=== PATIENT | male | born 1955 | race Caucasian/White ===

== ENCOUNTER 2018-01-31 15:12 | Emergency (ER) | payer MEDICARE, OTHER ==
[~2018-01-31] VITALS: Ht 172.7 cm; Wt 95.4 kg
[2018-01-31 15:25] VITALS: BP 151/82
[2018-01-31] MEDS ORDERED: insulin regular, human 10 units/0.1 ml syringe SQ ONE (16:45)
[2018-01-31] MEDS ORDERED: INSU200I SQ (16:47)
== END 2018-01-31 17:36 | disposition home or self-care (01) ==
LOC: ER 15:13
DX: E11.65 Type 2 diabetes mellitus with hyperglycemia (principal); Z79.4 Long term (current) use of insulin; Z88.5 Allergy status to narcotic agent
CPT/HCPCS: 82948; 96372; 99283; J1815

== ENCOUNTER 2018-03-20 13:54 | Inpatient (IN) | payer MEDICARE, OTHER ==
[~2018-03-20] VITALS: Ht 172.7 cm; Wt 97.7 kg
[~2018-03-20 13:54] MED LIST: INSU200I SQ
[2018-03-20] MEDS ORDERED: normal saline 1000ML IV soln IVB ONE (14:45)
[2018-03-20] MEDS ORDERED: nitroGLYCERIN 0.4mg/hour patch TD ONE (14:45)
[2018-03-20] MEDS ORDERED: aspirin 81mg tab.chew PO ONE (14:45)
[2018-03-20 15:05] LABS: BASOPHILS % (AUTO) 0.3 % (0-1); EOSINOPHILS # (AUTO) 0.3 X10'3 (0-0.9); EOSINOPHILS % (AUTO) 4.1 % (0-6); HEMATOCRIT 33.8 % (42.0-52.0); HEMOGLOBIN 11.4 g/dl (14.0-17.9); LYMPHOCYTES # (AUTO) 0.9 X10'3 (1.1-4.8); LYMPHOCYTES % (AUTO) 15.3 % (21-51); MEAN CORPUSCULAR HEMOGLOBIN 28.7 PG (27.0-31.0); MEAN CORPUSCULAR HGB CONC 33.9 % (33.0-36.5); MEAN CORPUSCULAR VOLUME 84.8 FL (78-98); MONOCYTES # (AUTO) 0.5 X10'3 (0-0.9); MONOCYTES % (AUTO) 7.4 % (2-12); NEUTROPHILS # (AUTO) 4.5 X10'3 (1.8-7.7); NEUTROPHILS % (AUTO) 72.9 % (42-75); PLATELET COUNT 273 X10'3 (140-440); RED BLOOD COUNT 3.98 X10'6 (4.70-6.10); RED CELL DISTRIBUTION WIDTH 14.3 % (11.5-14.5); WHITE BLOOD COUNT 6.2 X10'3 (4.5-11.0)
[2018-03-20 15:16] LABS: INR 0.9 INR; PARTIAL THROMBOPLASTIN TIME 29 SECONDS (22-32); PROTHROMBIN TIME 9.8 SECONDS (9.0-12.0)
[2018-03-20 15:29] LABS: ALANINE AMINOTRANSFERASE 24 U/L (12-78); ALBUMIN 2.8 G/DL (3.4-5.0); ALBUMIN/GLOBULIN RATIO 0.8 (1.1-1.5); ALKALINE PHOSPHATASE 66 IU/L (46-116); ANION GAP 9 (8-16); ASPARTATE AMINO TRANSFERASE 20 U/L (10-37); BILIRUBIN,TOTAL 0.2 MG/DL (0.1-1.0); BLOOD UREA NITROGEN 44 MG/DL (7-18); BUN/CREATININE RATIO 20.1 (5.4-32.0); CALCIUM 8.7 MG/DL (8.5-10.1); CHLORIDE 105 MMOL/L (99-107); CREATININE 2.19 MG/DL (0.60-1.10); GLUCOSE 204 MG/DL (70-104); MAGNESIUM 2.2 MG/DL (1.5-2.4); SODIUM 136 MMOL/L (135-145); TOTAL CARBON DIOXIDE 21.7 MMOL/L (24-32); TOTAL PROTEIN 6.4 G/DL (6.4-8.2); eGFR 31 ML/MIN
[2018-03-20] MEDS ORDERED: sodium polystyrene sulfonate 15gm/60ml oral suspension PO ONE (16:45)
[2018-03-20] MEDS ORDERED: insulin regular, human 10 units/0.1 ml syringe IV ONE (16:45)
[2018-03-20] MEDS ORDERED: calcium gluconate inj. 2 GM in normal saline 100ml IV soln 100 ML IV ONE (16:45)
[2018-03-20] MEDS ORDERED: dextrose 50%-water 50ml dispensing syringe IV ONE (16:45)
[2018-03-20] MEDS ORDERED: acetaminophen 325mg tablet PO PRN (18:55)
[2018-03-20] MEDS ORDERED: mag hydrox/Alum hydrox/simeth 30ml oral suspension PO PRN (18:55)
[2018-03-20] MEDS ORDERED: ondansetron/PF 4mg/2ml inj IV PRN (18:55)
[2018-03-20] MEDS ORDERED: OLANZapine 5mg rapidly disint. tablet PO ONE (18:55)
[2018-03-20] MEDS ORDERED: magnesium hydroxide 30ml (MOM) UD suspension PO PRN (18:55)
[2018-03-20] MEDS ORDERED: dextrose ORAL solution 15 GM/59 ML bottle PO PRN ×2 (19:00)
[2018-03-20] MEDS ORDERED: dextrose 50%-water 50ml dispensing syringe IV PRN ×2 (19:00)
[2018-03-20] MEDS ORDERED: glucagon, human recombinant 1mg kit SUBCUT PRN (19:00)
[2018-03-20] MEDS ORDERED: MESSAGE TO PHARMACY PO ONE (19:00)
[2018-03-20] MEDS: furosemide 20 MG/2 ML vial IV SCH (20:09)
[2018-03-20] MEDS: insulin glargine (Lantus) pen - multi-dose SQ SCH (21:00)
[2018-03-20 21:28] LABS: POTASSIUM 4.9 MMOL/L (3.5-5.1)
[2018-03-20 21:29] LABS: HEMOGLOBIN A1C 9.7 % (4.5-6.2)
[2018-03-20] MEDS ORDERED: OLAN5TAB5 PO (23:56)
[2018-03-20] MEDS ORDERED: SPIR25TA3 PO (23:56)
[2018-03-20] MEDS ORDERED: CARV-50 PO (23:56)
[2018-03-20] MEDS ORDERED: LEVO500T2 PO (23:56)
[2018-03-20] MEDS ORDERED: ASPI-1265 PO (23:56)
[2018-03-21] VITALS: BP 155/84
[2018-03-21 03:29] LABS: BASOPHILS % (AUTO) 0.6 % (0-1); EOSINOPHILS # (AUTO) 0.2 X10'3 (0-0.9); HEMATOCRIT 32.9 % (42.0-52.0); HEMOGLOBIN 11.1 g/dl (14.0-17.9); MEAN CORPUSCULAR HEMOGLOBIN 28.7 PG (27.0-31.0); MEAN CORPUSCULAR HGB CONC 33.9 % (33.0-36.5); MEAN CORPUSCULAR VOLUME 84.6 FL (78-98); MONOCYTES # (AUTO) 0.5 X10'3 (0-0.9); MONOCYTES % (AUTO) 7.6 % (2-12); NEUTROPHILS # (AUTO) 4.6 X10'3 (1.8-7.7); NEUTROPHILS % (AUTO) 72.8 % (42-75); PLATELET COUNT 268 X10'3 (140-440); RED BLOOD COUNT 3.89 X10'6 (4.70-6.10); RED CELL DISTRIBUTION WIDTH 13.9 % (11.5-14.5); WHITE BLOOD COUNT 6.3 X10'3 (4.5-11.0)
[2018-03-21 03:48] LABS: ALANINE AMINOTRANSFERASE 21 U/L (12-78); ALBUMIN 2.6 G/DL (3.4-5.0); ALBUMIN/GLOBULIN RATIO 0.8 (1.1-1.5); ALKALINE PHOSPHATASE 64 IU/L (46-116); ANION GAP 9 (8-16); ASPARTATE AMINO TRANSFERASE 18 U/L (10-37); BILIRUBIN,TOTAL 0.4 MG/DL (0.1-1.0); BLOOD UREA NITROGEN 45 MG/DL (7-18); BUN/CREATININE RATIO 21.7 (5.4-32.0); CALCIUM 9.1 MG/DL (8.5-10.1); CHLORIDE 107 MMOL/L (99-107); CREATININE 2.07 MG/DL (0.60-1.10); GLUCOSE 114 MG/DL (70-104); MAGNESIUM 2.2 MG/DL (1.5-2.4); POTASSIUM 5.1 MMOL/L (3.5-5.1); SODIUM 139 MMOL/L (135-145); TOTAL CARBON DIOXIDE 22.7 MMOL/L (24-32); eGFR 33 ML/MIN
[2018-03-21 07:00] VITALS: BP 112/58
[2018-03-21] MEDS: furosemide 20 MG/2 ML vial IV SCH ×2 (10:00→21:58)
[2018-03-21] MEDS: heparin, porcine 5000 units/ml vial SQ SCH ×2 (10:01→21:57)
[2018-03-21] MEDS ORDERED: ALPRAZolam 0.25mg tablet PO PRN (10:20)
[2018-03-21] MEDS ORDERED: OLANZapine 5mg rapidly disint. tablet PO PRN (10:50)
[2018-03-21] MEDS ORDERED: regadenoson 0.4mg/5ml syringe IV ONE (11:10)
[2018-03-21] MEDS ORDERED: nitroGLYCERIN 0.4mg SUBLingual tab SL PRN (11:10)
[2018-03-21] MEDS ORDERED: CAFFEINE CITRATE 60 MG/3 ML injection vial IV PRN (11:10)
[2018-03-21] MEDS: aspirin 81mg tab.chew PO SCH (12:00)
[2018-03-21] MEDS: spironolactone 25 MG tablet PO SCH (12:00)
[2018-03-21] MEDS: carVEDilol 12.5mg tablet PO SCH ×2 (12:00→21:58)
[2018-03-21 12:30] VITALS: BP 133/74
[2018-03-21] MEDS: ALPRAZolam 0.25mg tablet PO PRN (14:04)
[2018-03-21] MEDS: levoFLOXACIN 500mg tablet PO SCH (14:04)
[2018-03-21 20:00] VITALS: BP 129/71
[2018-03-21] MEDS: insulin glargine (Lantus) pen - multi-dose SQ SCH (21:00)
[2018-03-22] VITALS (13 sets, daily range): BP systolic 88–172; BP diastolic 52–86
[2018-03-22 07:24] LABS: CHOLESTEROL 186 MG/DL (0-200); HDL CHOLESTEROL 31 MG/DL (35-60); LDL CHOLESTEROL 118 MG/DL (50-100); TRIGLYCERIDES 161 MG/DL (20-135)
[2018-03-22] MEDS ORDERED: regadenoson 0.4mg/5ml syringe IV ONE (09:20)
[2018-03-22] MEDS: furosemide 20 MG/2 ML vial IV SCH (11:41)
[2018-03-22] MEDS: carVEDilol 12.5mg tablet PO SCH ×2 (11:44→20:56)
[2018-03-22] MEDS: spironolactone 25 MG tablet PO SCH (11:44)
[2018-03-22] MEDS: levoFLOXACIN 500mg tablet PO SCH (11:45)
[2018-03-22] MEDS: aspirin 81mg tab.chew PO SCH (11:45)
[2018-03-22] MEDS: heparin, porcine 5000 units/ml vial SQ SCH ×2 (11:48→20:56)
[2018-03-22 16:26] LABS: ALBUMIN 2.9 G/DL (3.4-5.0); ANION GAP 7 (8-16); BLOOD UREA NITROGEN 44 MG/DL (7-18); BUN/CREATININE RATIO 20.6 (5.4-32.0); CALCIUM 9.2 MG/DL (8.5-10.1); CHLORIDE 101 MMOL/L (99-107); CREATININE 2.14 MG/DL (0.60-1.10); GLUCOSE 158 MG/DL (70-104); POTASSIUM 5.2 MMOL/L (3.5-5.1); SODIUM 136 MMOL/L (135-145); TOTAL CARBON DIOXIDE 28.2 MMOL/L (24-32); eGFR 31 ML/MIN
[2018-03-22] MEDS: furosemide 40mg/4ml inj IV SCH (20:55)
[2018-03-22] MEDS: lactobacillus rhamnosus 10,000 MMU CELLS/CAPSULE PO SCH (20:56)
[2018-03-22] MEDS: insulin glargine (Lantus) pen - multi-dose SQ SCH (21:00)
[2018-03-23] VITALS: BP 124/71
[2018-03-23 06:04] LABS: BASOPHILS % (AUTO) 0.5 % (0-1); EOSINOPHILS # (AUTO) 0.2 X10'3 (0-0.9); EOSINOPHILS % (AUTO) 4.6 % (0-6); HEMATOCRIT 33.2 % (42.0-52.0); HEMOGLOBIN 11.6 g/dl (14.0-17.9); LYMPHOCYTES # (AUTO) 1.2 X10'3 (1.1-4.8); LYMPHOCYTES % (AUTO) 21.1 % (21-51); MEAN CORPUSCULAR HEMOGLOBIN 29.2 PG (27.0-31.0); MEAN CORPUSCULAR HGB CONC 34.9 % (33.0-36.5); MEAN CORPUSCULAR VOLUME 83.4 FL (78-98); MEAN PLATELET VOLUME 7.7 FL (7.4-10.4); MONOCYTES # (AUTO) 0.5 X10'3 (0-0.9); MONOCYTES % (AUTO) 9.5 % (2-12); NEUTROPHILS # (AUTO) 3.5 X10'3 (1.8-7.7); NEUTROPHILS % (AUTO) 64.3 % (42-75); PLATELET COUNT 262 X10'3 (140-440); RED BLOOD COUNT 3.98 X10'6 (4.70-6.10); WHITE BLOOD COUNT 5.5 X10'3 (4.5-11.0)
[2018-03-23 06:37] LABS: ALBUMIN 2.7 G/DL (3.4-5.0); ANION GAP 10 (8-16); BLOOD UREA NITROGEN 52 MG/DL (7-18); BUN/CREATININE RATIO 21.1 (5.4-32.0); CALCIUM 8.9 MG/DL (8.5-10.1); CHLORIDE 101 MMOL/L (99-107); CREATININE 2.47 MG/DL (0.60-1.10); GLUCOSE 173 MG/DL (70-104); POTASSIUM 4.6 MMOL/L (3.5-5.1); SODIUM 136 MMOL/L (135-145); TOTAL CARBON DIOXIDE 25.3 MMOL/L (24-32); eGFR 27 ML/MIN
[2018-03-23 08:00] VITALS: BP 131/74
[2018-03-23] MEDS: aspirin 81mg tab.chew PO SCH (08:47)
[2018-03-23] MEDS: spironolactone 25 MG tablet PO SCH (08:47)
[2018-03-23] MEDS: furosemide 40mg/4ml inj IV SCH (08:47)
[2018-03-23] MEDS: carVEDilol 12.5mg tablet PO SCH ×2 (08:48→20:23)
[2018-03-23] MEDS: levoFLOXACIN 500mg tablet PO SCH (08:48)
[2018-03-23] MEDS: lactobacillus rhamnosus 10,000 MMU CELLS/CAPSULE PO SCH ×2 (08:48→20:22)
[2018-03-23] MEDS: atorvastatin 20mg tablet PO SCH (08:48)
[2018-03-23] MEDS: heparin, porcine 5000 units/ml vial SQ SCH ×2 (08:48→20:23)
[2018-03-23 11:34] VITALS: BP 141/83
[2018-03-23] MEDS: insulin Lispro (HumaLOG) vial - multi-dose SQ SCH (13:25)
[2018-03-23] MEDS: ALPRAZolam 0.25mg tablet PO PRN (17:27)
[2018-03-23 19:00] VITALS: BP 151/84
[2018-03-23] MEDS: furosemide 20 MG/2 ML vial IV SCH (20:23)
[2018-03-23] MEDS: insulin glargine (Lantus) pen - multi-dose SQ SCH (22:35)
[2018-03-23 23:00] VITALS: BP 111/67
[2018-03-24 07:00] VITALS: BP 133/75
[2018-03-24] MEDS: ALPRAZolam 0.25mg tablet PO PRN ×2 (07:04→16:26)
[2018-03-24] MEDS: insulin Lispro (HumaLOG) vial - multi-dose SQ SCH ×3 (08:39→19:12)
[2018-03-24] MEDS: levoFLOXACIN 500mg tablet PO SCH (08:43)
[2018-03-24] MEDS: aspirin 81mg tab.chew PO SCH (08:43)
[2018-03-24] MEDS: carVEDilol 12.5mg tablet PO SCH (08:43)
[2018-03-24] MEDS: spironolactone 25 MG tablet PO SCH (08:43)
[2018-03-24] MEDS: atorvastatin 20mg tablet PO SCH (08:43)
[2018-03-24] MEDS: heparin, porcine 5000 units/ml vial SQ SCH (08:44)
[2018-03-24] MEDS: furosemide 20 MG/2 ML vial IV SCH (08:44)
[2018-03-24] MEDS: lactobacillus rhamnosus 10,000 MMU CELLS/CAPSULE PO SCH (08:44)
[2018-03-24] MEDS ORDERED: FURO-150 PO (17:05)
[2018-03-24] MEDS ORDERED: SPIR25TA3 PO (17:10)
[2018-03-24] MEDS ORDERED: LISI2.5T2 PO (17:10)
== END 2018-03-24 19:34 | disposition home health service (06) | DRG 291 ==
LOC: ER 13:55 → ED HOLD 18:55 → CMPBEDREQ 22:48 → SUR 3N 22:51
PROVIDERS: ADMIT Internal Medicine; ATTEND Legal Medicine
PROC: 4A02XM4 Measurement of Cardiac Total Activity, External Approach (ICD-10-PCS; principal; 2018-03-22)
PROC: 3E073KZ Introduction of Other Diagnostic Substance into Coronary Artery, Percutaneous Approach (ICD-10-PCS; 2018-03-22)
DX: I13.0 Hypertensive heart and chronic kidney disease with heart failure and stage 1 through stage 4 chronic kidney disease, or unspecified chronic kidney disease (principal); I50.33 Acute on chronic diastolic (congestive) heart failure; J18.9 Pneumonia, unspecified organism; N17.9 Acute kidney failure, unspecified; E11.22 Type 2 diabetes mellitus with diabetic chronic kidney disease; E11.51 Type 2 diabetes mellitus with diabetic peripheral angiopathy without gangrene; N18.9 Chronic kidney disease, unspecified; E78.00 Pure hypercholesterolemia, unspecified; E11.65 Type 2 diabetes mellitus with hyperglycemia; I25.10 Atherosclerotic heart disease of native coronary artery without angina pectoris; E87.5 Hyperkalemia; I25.2 Old myocardial infarction; Z89.431 Acquired absence of right foot; Z95.5 Presence of coronary angioplasty implant and graft; Z88.6 Allergy status to analgesic agent; Z79.4 Long term (current) use of insulin; Z86.73 Personal history of transient ischemic attack (TIA), and cerebral infarction without residual deficits; Z87.891 Personal history of nicotine dependence; Z89.512 Acquired absence of left leg below knee; Z82.49 Family history of ischemic heart disease and other diseases of the circulatory system; Z83.3 Family history of diabetes mellitus
CPT/HCPCS: 36415; 71045; 78451; 80048; 80053; 80061; 82948; 83036; 83735; 83880; 84132; 84484; 85025; 85610; 85730; 87070; 93005; 93017; 93306; 96361; 96374; 96375; 99285; A6212; A6213; A6446; A6449; A9500; J0610; J1644; J1815; J1940; J7030

== ENCOUNTER 2018-04-09 09:40 | Day surgery (SDC) | payer MEDICARE, MEDICAID ==
[~2018-04-09 09:40] MED LIST changes: +ASPI-1265 PO; +CARV-50 PO; +FURO-150 PO; -INSU200I SQ; +LISI2.5T2 PO; +OLAN5TAB5 PO; +SPIR25TA3 PO
[2018-04-09] MEDS ORDERED: LIDOcaine 2% 5ml jelly ONE (10:16)
== END 2018-04-09 11:38 | disposition home or self-care (01) ==
LOC: WOUND CARE 09:40
PROVIDERS: ATTEND Surgery
DX: E11.621 Type 2 diabetes mellitus with foot ulcer (principal); L97.511 Non-pressure chronic ulcer of other part of right foot limited to breakdown of skin; E11.51 Type 2 diabetes mellitus with diabetic peripheral angiopathy without gangrene; E11.65 Type 2 diabetes mellitus with hyperglycemia; E11.22 Type 2 diabetes mellitus with diabetic chronic kidney disease; I13.0 Hypertensive heart and chronic kidney disease with heart failure and stage 1 through stage 4 chronic kidney disease, or unspecified chronic kidney disease; I50.33 Acute on chronic diastolic (congestive) heart failure; N18.9 Chronic kidney disease, unspecified; I25.2 Old myocardial infarction; I25.10 Atherosclerotic heart disease of native coronary artery without angina pectoris; E78.00 Pure hypercholesterolemia, unspecified; Z89.512 Acquired absence of left leg below knee; Z89.431 Acquired absence of right foot; Z79.4 Long term (current) use of insulin; Z87.891 Personal history of nicotine dependence; Z95.5 Presence of coronary angioplasty implant and graft; Z86.73 Personal history of transient ischemic attack (TIA), and cerebral infarction without residual deficits
CPT/HCPCS: 36416; 82948; 97597; A6021; A6206; A6209; A6446

== ENCOUNTER 2018-04-16 10:03 | Day surgery (SDC) | payer MEDICARE, MEDICAID ==
[2018-04-16] MEDS ORDERED: LIDOcaine 2% 5ml jelly ONE ×2 (11:43)
== END 2018-04-16 12:27 | disposition home or self-care (01) ==
LOC: WOUND CARE 10:03
PROVIDERS: ATTEND Surgery
DX: E11.621 Type 2 diabetes mellitus with foot ulcer (principal); L97.512 Non-pressure chronic ulcer of other part of right foot with fat layer exposed; E11.51 Type 2 diabetes mellitus with diabetic peripheral angiopathy without gangrene; E11.65 Type 2 diabetes mellitus with hyperglycemia; E11.22 Type 2 diabetes mellitus with diabetic chronic kidney disease; I13.0 Hypertensive heart and chronic kidney disease with heart failure and stage 1 through stage 4 chronic kidney disease, or unspecified chronic kidney disease; I50.33 Acute on chronic diastolic (congestive) heart failure; N18.9 Chronic kidney disease, unspecified; I25.2 Old myocardial infarction; I25.10 Atherosclerotic heart disease of native coronary artery without angina pectoris; E78.00 Pure hypercholesterolemia, unspecified; Z89.512 Acquired absence of left leg below knee; Z89.431 Acquired absence of right foot; Z79.4 Long term (current) use of insulin; Z87.891 Personal history of nicotine dependence; Z95.5 Presence of coronary angioplasty implant and graft; Z86.73 Personal history of transient ischemic attack (TIA), and cerebral infarction without residual deficits
CPT/HCPCS: 36416; 82948; 93922; 97597; A6021; A6206; A6212; A6446

== ENCOUNTER 2018-04-25 09:59 | Day surgery (SDC) | payer MEDICARE, MEDICAID ==
[2018-04-25] MEDS ORDERED: LIDOcaine 2% 5ml jelly ONE (10:29)
== END 2018-04-25 11:42 | disposition home or self-care (01) ==
LOC: WOUND CARE 09:59
PROVIDERS: ATTEND Surgery
DX: E11.621 Type 2 diabetes mellitus with foot ulcer (principal); L97.512 Non-pressure chronic ulcer of other part of right foot with fat layer exposed; E11.51 Type 2 diabetes mellitus with diabetic peripheral angiopathy without gangrene; E11.65 Type 2 diabetes mellitus with hyperglycemia; E11.22 Type 2 diabetes mellitus with diabetic chronic kidney disease; I13.0 Hypertensive heart and chronic kidney disease with heart failure and stage 1 through stage 4 chronic kidney disease, or unspecified chronic kidney disease; I50.33 Acute on chronic diastolic (congestive) heart failure; N18.9 Chronic kidney disease, unspecified; I25.2 Old myocardial infarction; I25.10 Atherosclerotic heart disease of native coronary artery without angina pectoris; E78.00 Pure hypercholesterolemia, unspecified; Z89.512 Acquired absence of left leg below knee; Z89.431 Acquired absence of right foot; Z79.4 Long term (current) use of insulin; Z87.891 Personal history of nicotine dependence; Z95.5 Presence of coronary angioplasty implant and graft; Z86.73 Personal history of transient ischemic attack (TIA), and cerebral infarction without residual deficits
CPT/HCPCS: 36416; 73630; 82948; 97597; A6021; A6446

== ENCOUNTER 2018-04-30 10:00 | Day surgery (SDC) | payer MEDICARE, MEDICAID ==
[~2018-04-30 10:00] MED LIST changes: -SPIR25TA3 PO; +SPIR25TA5 PO
[2018-04-30] MEDS ORDERED: LIDOcaine 2% 5ml jelly ONE (10:29)
== END 2018-04-30 11:10 | disposition home or self-care (01) ==
LOC: WOUND CARE 10:00
PROVIDERS: ATTEND Surgery
DX: E11.621 Type 2 diabetes mellitus with foot ulcer (principal); L97.512 Non-pressure chronic ulcer of other part of right foot with fat layer exposed; E11.51 Type 2 diabetes mellitus with diabetic peripheral angiopathy without gangrene; E11.65 Type 2 diabetes mellitus with hyperglycemia; E11.22 Type 2 diabetes mellitus with diabetic chronic kidney disease; I13.0 Hypertensive heart and chronic kidney disease with heart failure and stage 1 through stage 4 chronic kidney disease, or unspecified chronic kidney disease; I50.33 Acute on chronic diastolic (congestive) heart failure; N18.9 Chronic kidney disease, unspecified; I25.2 Old myocardial infarction; I25.10 Atherosclerotic heart disease of native coronary artery without angina pectoris; E78.00 Pure hypercholesterolemia, unspecified; Z89.512 Acquired absence of left leg below knee; Z89.431 Acquired absence of right foot; Z79.4 Long term (current) use of insulin; Z87.891 Personal history of nicotine dependence; Z95.5 Presence of coronary angioplasty implant and graft; Z86.73 Personal history of transient ischemic attack (TIA), and cerebral infarction without residual deficits
CPT/HCPCS: 11042; A6021; A6206; A6212; A6446

== ENCOUNTER 2018-05-07 10:06 | Day surgery (SDC) | payer MEDICARE, MEDICAID | END 2018-05-07 12:09 | disposition home or self-care (01) | LOC: WOUND CARE 10:06 | PROVIDERS: ATTEND Surgery | DX: E11.621 Type 2 diabetes mellitus with foot ulcer (principal); L97.512 Non-pressure chronic ulcer of other part of right foot with fat layer exposed; E11.51 Type 2 diabetes mellitus with diabetic peripheral angiopathy without gangrene; E11.65 Type 2 diabetes mellitus with hyperglycemia; E11.22 Type 2 diabetes mellitus with diabetic chronic kidney disease; I13.0 Hypertensive heart and chronic kidney disease with heart failure and stage 1 through stage 4 chronic kidney disease, or unspecified chronic kidney disease; I50.33 Acute on chronic diastolic (congestive) heart failure; N18.9 Chronic kidney disease, unspecified; I25.2 Old myocardial infarction; I25.10 Atherosclerotic heart disease of native coronary artery without angina pectoris; E78.00 Pure hypercholesterolemia, unspecified; Z89.512 Acquired absence of left leg below knee; Z89.431 Acquired absence of right foot; Z79.4 Long term (current) use of insulin; Z87.891 Personal history of nicotine dependence; Z95.5 Presence of coronary angioplasty implant and graft; Z86.73 Personal history of transient ischemic attack (TIA), and cerebral infarction without residual deficits | CPT/HCPCS: 11042; 36416; 82948; A6206; A6446 ==

== ENCOUNTER 2018-05-14 10:30 | Day surgery (SDC) | payer MEDICARE, MEDICAID | END 2018-05-14 12:49 | disposition home or self-care (01) | LOC: WOUND CARE 10:30 | PROVIDERS: ATTEND Surgery | DX: E11.621 Type 2 diabetes mellitus with foot ulcer (principal); L97.512 Non-pressure chronic ulcer of other part of right foot with fat layer exposed; E11.51 Type 2 diabetes mellitus with diabetic peripheral angiopathy without gangrene; E11.65 Type 2 diabetes mellitus with hyperglycemia; E11.22 Type 2 diabetes mellitus with diabetic chronic kidney disease; I13.0 Hypertensive heart and chronic kidney disease with heart failure and stage 1 through stage 4 chronic kidney disease, or unspecified chronic kidney disease; I50.33 Acute on chronic diastolic (congestive) heart failure; N18.9 Chronic kidney disease, unspecified; I25.2 Old myocardial infarction; I25.10 Atherosclerotic heart disease of native coronary artery without angina pectoris; E78.00 Pure hypercholesterolemia, unspecified; Z89.512 Acquired absence of left leg below knee; Z89.431 Acquired absence of right foot; Z79.4 Long term (current) use of insulin; Z87.891 Personal history of nicotine dependence; Z95.5 Presence of coronary angioplasty implant and graft; Z86.73 Personal history of transient ischemic attack (TIA), and cerebral infarction without residual deficits | CPT/HCPCS: 11042; A6206; A6209; A6446 ==

== ENCOUNTER 2018-05-21 10:56 | Day surgery (SDC) | payer MEDICARE, MEDICAID ==
[2018-05-21] MEDS ORDERED: LIDOcaine 2% 5ml jelly ONE (11:32)
== END 2018-05-21 12:05 | disposition home or self-care (01) ==
LOC: WOUND CARE 10:56
PROVIDERS: ATTEND Surgery
DX: E11.621 Type 2 diabetes mellitus with foot ulcer (principal); L97.512 Non-pressure chronic ulcer of other part of right foot with fat layer exposed; E11.51 Type 2 diabetes mellitus with diabetic peripheral angiopathy without gangrene; E11.65 Type 2 diabetes mellitus with hyperglycemia; E11.22 Type 2 diabetes mellitus with diabetic chronic kidney disease; I13.0 Hypertensive heart and chronic kidney disease with heart failure and stage 1 through stage 4 chronic kidney disease, or unspecified chronic kidney disease; I50.33 Acute on chronic diastolic (congestive) heart failure; N18.9 Chronic kidney disease, unspecified; I25.2 Old myocardial infarction; I25.10 Atherosclerotic heart disease of native coronary artery without angina pectoris; E78.00 Pure hypercholesterolemia, unspecified; Z89.512 Acquired absence of left leg below knee; Z89.431 Acquired absence of right foot; Z79.4 Long term (current) use of insulin; Z87.891 Personal history of nicotine dependence; Z95.5 Presence of coronary angioplasty implant and graft; Z86.73 Personal history of transient ischemic attack (TIA), and cerebral infarction without residual deficits
CPT/HCPCS: 11042; 36416; 82948; 87070; 87075; 87077; 87102; 87176; 87186; A6021; A6206; A6209; A6446

== ENCOUNTER 2018-05-25 09:32 | Emergency (ER) | payer MEDICARE, MEDICAID ==
[~2018-05-25] VITALS: Ht 170.2 cm; Wt 104.0 kg
[2018-05-25 10:15] LABS: BASOPHILS % (AUTO) 0.2 % (0-1); EOSINOPHILS # (AUTO) 0.2 X10'3 (0-0.9); EOSINOPHILS % (AUTO) 2.2 % (0-6); HEMATOCRIT 30.9 % (42.0-52.0); HEMOGLOBIN 10.8 g/dl (14.0-17.9); LYMPHOCYTES # (AUTO) 0.8 X10'3 (1.1-4.8); LYMPHOCYTES % (AUTO) 8.1 % (21-51); MEAN CORPUSCULAR HEMOGLOBIN 29.2 PG (27.0-31.0); MEAN CORPUSCULAR HGB CONC 34.9 % (33.0-36.5); MEAN CORPUSCULAR VOLUME 83.6 FL (78-98); MEAN PLATELET VOLUME 7.2 FL (7.4-10.4); MONOCYTES % (AUTO) 11.1 % (2-12); NEUTROPHILS # (AUTO) 7.3 X10'3 (1.8-7.7); NEUTROPHILS % (AUTO) 78.4 % (42-75); PLATELET COUNT 336 X10'3 (140-440); RED CELL DISTRIBUTION WIDTH 13.2 % (11.5-14.5); WHITE BLOOD COUNT 9.3 X10'3 (4.5-11.0)
[2018-05-25 10:39] LABS: ANION GAP 11 (8-16); BLOOD UREA NITROGEN 40 MG/DL (7-18); BUN/CREATININE RATIO 23.1 (5.4-32.0); CALCIUM 8.5 MG/DL (8.5-10.1); CHLORIDE 95 MMOL/L (99-107); CREATININE 1.73 MG/DL (0.60-1.10); GLUCOSE 135 MG/DL (70-104); POTASSIUM 4.6 MMOL/L (3.5-5.1); SODIUM 130 MMOL/L (135-145); eGFR 40 ML/MIN
[2018-05-25 10:40] LABS: ALANINE AMINOTRANSFERASE 30 U/L (12-78); ALBUMIN 2.7 G/DL (3.4-5.0); ALBUMIN/GLOBULIN RATIO 0.6 (1.1-1.5); ALKALINE PHOSPHATASE 93 IU/L (46-116); ASPARTATE AMINO TRANSFERASE 25 U/L (10-37); BILIRUBIN,TOTAL 0.5 MG/DL (0.1-1.0); TOTAL PROTEIN 7.6 G/DL (6.4-8.2)
[2018-05-25] MEDS ORDERED: normal saline 1000ML IV soln IVB ONE (10:55)
[2018-05-25 12:05] VITALS: BP 154/82
== END 2018-05-25 12:07 | disposition home or self-care (01) ==
LOC: ER 09:33
DX: E86.0 Dehydration (principal); E87.1 Hypo-osmolality and hyponatremia; R19.7 Diarrhea, unspecified; N18.3 Chronic kidney disease, stage 3 (moderate); I25.10 Atherosclerotic heart disease of native coronary artery without angina pectoris; E78.00 Pure hypercholesterolemia, unspecified; I12.9 Hypertensive chronic kidney disease with stage 1 through stage 4 chronic kidney disease, or unspecified chronic kidney disease; E11.22 Type 2 diabetes mellitus with diabetic chronic kidney disease; Z86.73 Personal history of transient ischemic attack (TIA), and cerebral infarction without residual deficits; Z98.61 Coronary angioplasty status; Z98.890 Other specified postprocedural states; Z88.5 Allergy status to narcotic agent; Z79.82 Long term (current) use of aspirin; Z79.899 Other long term (current) drug therapy
CPT/HCPCS: 36415; 80053; 82948; 85025; 93005; 96360; 99285; J7030

== ENCOUNTER 2018-05-28 09:16 | Inpatient (IN) | payer MEDICARE, MEDICAID ==
[~2018-05-28] VITALS: Ht 170.2 cm; Wt 111.3 kg
[2018-05-28] MEDS ORDERED: mag hydrox/Alum hydrox/simeth 30ml oral suspension PO PRN (11:25)
[2018-05-28] MEDS ORDERED: magnesium Cl slow-release 64mg tablet PO PRN (11:25)
[2018-05-28] MEDS ORDERED: bisacodyl 10mg suppository rectal RC PRN (11:25)
[2018-05-28] MEDS ORDERED: potassium Cl 20 mEq SR tablet PO PRN ×2 (11:25)
[2018-05-28] MEDS ORDERED: acetaminophen 325mg tablet PO PRN (11:25)
[2018-05-28] MEDS ORDERED: magnesium 4gm in 100ml NS 100 ML IV PRN (11:25)
[2018-05-28] MEDS ORDERED: potassium Cl 40MEQ/NS 500ml 500 ML IV PRN ×2 (11:25)
[2018-05-28] MEDS ORDERED: magnesium 1gm/100ml D5W IVPB 50 ML IV PRN (11:25)
[2018-05-28] MEDS ORDERED: glucagon, human recombinant 1mg kit SUBCUT PRN (11:35)
[2018-05-28] MEDS ORDERED: dextrose 50%-water 50ml dispensing syringe IV PRN ×2 (11:35)
[2018-05-28] MEDS ORDERED: MESSAGE TO PHARMACY PO ONE (11:35)
[2018-05-28] MEDS ORDERED: dextrose ORAL solution 15 GM/59 ML bottle PO PRN ×2 (11:35)
[2018-05-28] MEDS ORDERED: SPIR25TA5 PO (13:14)
[2018-05-28] MEDS ORDERED: INSU100I31 SQ (13:14)
[2018-05-28] MEDS ORDERED: LISI2.5T2 PO (13:14)
[2018-05-28] MEDS ORDERED: INSU100I8 SQ (13:14)
[2018-05-28] MEDS ORDERED: FURO20TA4 PO (13:14)
[2018-05-28] MEDS ORDERED: ATOR40TA72 PO (13:14)
[2018-05-28 14:12] LABS: BASOPHILS % (AUTO) 0.1 % (0-1); EOSINOPHILS # (AUTO) 0.2 X10'3 (0-0.9); EOSINOPHILS % (AUTO) 2.3 % (0-6); HEMATOCRIT 26.8 % (42.0-52.0); HEMOGLOBIN 9.2 g/dl (14.0-17.9); LYMPHOCYTES # (AUTO) 0.5 X10'3 (1.1-4.8); LYMPHOCYTES % (AUTO) 6.2 % (21-51); MEAN CORPUSCULAR HEMOGLOBIN 28.6 PG (27.0-31.0); MEAN CORPUSCULAR HGB CONC 34.3 % (33.0-36.5); MEAN CORPUSCULAR VOLUME 83.3 FL (78-98); MEAN PLATELET VOLUME 7.8 FL (7.4-10.4); MONOCYTES # (AUTO) 0.5 X10'3 (0-0.9); MONOCYTES % (AUTO) 7.1 % (2-12); NEUTROPHILS # (AUTO) 6.3 X10'3 (1.8-7.7); NEUTROPHILS % (AUTO) 84.3 % (42-75); PLATELET COUNT 299 X10'3 (140-440); RED BLOOD COUNT 3.21 X10'6 (4.70-6.10); RED CELL DISTRIBUTION WIDTH 13.3 % (11.5-14.5); WHITE BLOOD COUNT 7.4 X10'3 (4.5-11.0)
[2018-05-28 14:21] LABS: ALANINE AMINOTRANSFERASE 61 U/L (12-78); ALBUMIN/GLOBULIN RATIO 0.5 (1.1-1.5); ALKALINE PHOSPHATASE 121 IU/L (46-116); ANION GAP 7 (8-16); ASPARTATE AMINO TRANSFERASE 50 U/L (10-37); BILIRUBIN,TOTAL 0.3 MG/DL (0.1-1.0); BLOOD UREA NITROGEN 45 MG/DL (7-18); BUN/CREATININE RATIO 23.4 (5.4-32.0); CALCIUM 7.7 MG/DL (8.5-10.1); CHLORIDE 95 MMOL/L (99-107); CREATININE 1.92 MG/DL (0.60-1.10); GLUCOSE 285 MG/DL (70-104); POTASSIUM 4.9 MMOL/L (3.5-5.1); SODIUM 125 MMOL/L (135-145); TOTAL CARBON DIOXIDE 23.3 MMOL/L (24-32); TOTAL PROTEIN 6.3 G/DL (6.4-8.2); eGFR 36 ML/MIN
[2018-05-28 14:22] LABS: HEMOGLOBIN A1C 10.1 % (4.5-6.2)
[2018-05-28] MEDS ORDERED: temazepam 15mg capsule PO PRN (15:45)
[2018-05-28] MEDS: LORazepam 0.5 MG tablet PO PRN (15:58)
[2018-05-28] MEDS: metroNIDAZOLE-Flagyl 500mg/NS 100 ML IV SCH ×2 (17:18→23:51)
[2018-05-28] MEDS: CefTRIAXone/D5W-Rocephin 1gm 50 ML IV SCH (17:19)
[2018-05-28 19:00] VITALS: BP 118/59
[2018-05-28] MEDS ORDERED: LORazepam 2 mg/ml vial IV ONE (19:20)
[2018-05-28] MEDS: insulin Lispro (HumaLOG) vial - multi-dose SQ SCH (19:45)
[2018-05-28] MEDS: heparin, porcine 5000 units/ml vial SQ SCH (19:46)
[2018-05-28] MEDS: docusate sod 100mg capsule PO SCH (19:54)
[2018-05-28] MEDS: insulin glargine (Lantus) pen - multi-dose SQ SCH (21:38)
[2018-05-29] VITALS: BP 116/57
[2018-05-29 05:15] LABS: BASOPHILS % (AUTO) 0.2 % (0-1); EOSINOPHILS # (AUTO) 0.2 X10'3 (0-0.9); EOSINOPHILS % (AUTO) 2.9 % (0-6); HEMATOCRIT 26.1 % (42.0-52.0); HEMOGLOBIN 8.8 g/dl (14.0-17.9); LYMPHOCYTES # (AUTO) 0.8 X10'3 (1.1-4.8); LYMPHOCYTES % (AUTO) 12.6 % (21-51); MEAN CORPUSCULAR HEMOGLOBIN 28.1 PG (27.0-31.0); MEAN CORPUSCULAR HGB CONC 33.8 % (33.0-36.5); MEAN CORPUSCULAR VOLUME 83.3 FL (78-98); MEAN PLATELET VOLUME 7.7 FL (7.4-10.4); MONOCYTES # (AUTO) 0.7 X10'3 (0-0.9); MONOCYTES % (AUTO) 10.4 % (2-12); NEUTROPHILS # (AUTO) 4.8 X10'3 (1.8-7.7); NEUTROPHILS % (AUTO) 73.9 % (42-75); PLATELET COUNT 275 X10'3 (140-440); RED BLOOD COUNT 3.14 X10'6 (4.70-6.10); RED CELL DISTRIBUTION WIDTH 13.2 % (11.5-14.5); WHITE BLOOD COUNT 6.5 X10'3 (4.5-11.0)
[2018-05-29 05:43] LABS: ALANINE AMINOTRANSFERASE 54 U/L (12-78); ALBUMIN 1.9 G/DL (3.4-5.0); ALBUMIN/GLOBULIN RATIO 0.4 (1.1-1.5); ALKALINE PHOSPHATASE 113 IU/L (46-116); ANION GAP 9 (8-16); ASPARTATE AMINO TRANSFERASE 37 U/L (10-37); BILIRUBIN,TOTAL 0.2 MG/DL (0.1-1.0); BLOOD UREA NITROGEN 46 MG/DL (7-18); CALCIUM 7.9 MG/DL (8.5-10.1); CHLORIDE 97 MMOL/L (99-107); CREATININE 1.77 MG/DL (0.60-1.10); GLUCOSE 167 MG/DL (70-104); MAGNESIUM 2.2 MG/DL (1.5-2.4); POTASSIUM 4.6 MMOL/L (3.5-5.1); SODIUM 129 MMOL/L (135-145); TOTAL CARBON DIOXIDE 22.8 MMOL/L (24-32); TOTAL PROTEIN 6.2 G/DL (6.4-8.2); eGFR 39 ML/MIN
[2018-05-29] MEDS: docusate sod 100mg capsule PO SCH ×2 (07:18→20:27)
[2018-05-29] MEDS: CefTRIAXone/D5W-Rocephin 1gm 50 ML IV SCH (07:26)
[2018-05-29] MEDS: K and/or MAG REPLACEMENT MC SCH (07:26)
[2018-05-29] MEDS: metroNIDAZOLE-Flagyl 500mg/NS 100 ML IV SCH (07:26)
[2018-05-29] MEDS: heparin, porcine 5000 units/ml vial SQ SCH ×2 (07:26→20:28)
[2018-05-29 07:30] VITALS: BP 114/67
[2018-05-29] MEDS: insulin Lispro (HumaLOG) vial - multi-dose SQ SCH ×2 (09:02→14:29)
[2018-05-29 11:27] VITALS: BP 125/63
[2018-05-29] MEDS: LORazepam 0.5 MG tablet PO PRN (11:30)
[2018-05-29] MEDS ORDERED: LORazepam 2 mg/ml vial IV ONE (16:36)
[2018-05-29] MEDS: sertraline 25mg tablet PO SCH (16:43)
[2018-05-29] MEDS: metroNIDAZOLE 500mg tablet PO SCH (16:43)
[2018-05-29 19:00] VITALS: BP 119/65
[2018-05-29] MEDS: lactobacillus rhamnosus 10,000 MMU CELLS/CAPSULE PO SCH (20:27)
[2018-05-29] MEDS: temazepam 15mg capsule PO SCH (20:27)
[2018-05-29] MEDS: insulin glargine (Lantus) pen - multi-dose SQ SCH (20:36)
[2018-05-30] VITALS: BP 134/66
[2018-05-30] MEDS: metroNIDAZOLE 500mg tablet PO SCH ×2 (00:14→09:03)
[2018-05-30] MEDS: HYDROcodone/acetaminophen 5mg/325mg tablet PO PRN (00:15)
[2018-05-30] MEDS: ondansetron/PF 4mg/2ml inj IV PRN (05:16)
[2018-05-30 05:39] LABS: BASOPHILS % (AUTO) 0.4 % (0-1); EOSINOPHILS # (AUTO) 0.2 X10'3 (0-0.9); EOSINOPHILS % (AUTO) 3.5 % (0-6); HEMATOCRIT 25.8 % (42.0-52.0); HEMOGLOBIN 8.9 g/dl (14.0-17.9); LYMPHOCYTES % (AUTO) 14.3 % (21-51); MEAN CORPUSCULAR HEMOGLOBIN 28.6 PG (27.0-31.0); MEAN CORPUSCULAR HGB CONC 34.4 % (33.0-36.5); MEAN PLATELET VOLUME 7.6 FL (7.4-10.4); MONOCYTES # (AUTO) 0.6 X10'3 (0-0.9); MONOCYTES % (AUTO) 8.6 % (2-12); NEUTROPHILS # (AUTO) 5.2 X10'3 (1.8-7.7); NEUTROPHILS % (AUTO) 73.2 % (42-75); PLATELET COUNT 299 X10'3 (140-440); RED BLOOD COUNT 3.11 X10'6 (4.70-6.10); RED CELL DISTRIBUTION WIDTH 13.3 % (11.5-14.5); WHITE BLOOD COUNT 7.2 X10'3 (4.5-11.0)
[2018-05-30 05:59] LABS: ALANINE AMINOTRANSFERASE 41 U/L (12-78); ALBUMIN 1.8 G/DL (3.4-5.0); ALBUMIN/GLOBULIN RATIO 0.4 (1.1-1.5); ALKALINE PHOSPHATASE 104 IU/L (46-116); ANION GAP 6 (8-16); ASPARTATE AMINO TRANSFERASE 27 U/L (10-37); BILIRUBIN,TOTAL 0.1 MG/DL (0.1-1.0); BLOOD UREA NITROGEN 39 MG/DL (7-18); BUN/CREATININE RATIO 29.1 (5.4-32.0); CALCIUM 8.2 MG/DL (8.5-10.1); CHLORIDE 101 MMOL/L (99-107); CREATININE 1.34 MG/DL (0.60-1.10); GLUCOSE 182 MG/DL (70-104); MAGNESIUM 2.4 MG/DL (1.5-2.4); POTASSIUM 4.7 MMOL/L (3.5-5.1); SODIUM 130 MMOL/L (135-145); TOTAL PROTEIN 6.1 G/DL (6.4-8.2); eGFR 54 ML/MIN
[2018-05-30 06:59] LABS: TROPONIN I 0.19 NG/ML (0.0-0.05)
[2018-05-30 08:00] VITALS: BP 113/63
[2018-05-30] MEDS: K and/or MAG REPLACEMENT MC SCH (08:00)
[2018-05-30] MEDS ORDERED: LORazepam 2 mg/ml vial IV PRN (08:50)
[2018-05-30] MEDS: docusate sod 100mg capsule PO SCH ×2 (09:03→20:00)
[2018-05-30] MEDS: sertraline 25mg tablet PO SCH (09:03)
[2018-05-30] MEDS: lactobacillus rhamnosus 10,000 MMU CELLS/CAPSULE PO SCH ×2 (09:03→20:46)
[2018-05-30] MEDS: CefTRIAXone/D5W-Rocephin 1gm 50 ML IV SCH (09:03)
[2018-05-30] MEDS: heparin, porcine 5000 units/ml vial SQ SCH (09:03)
[2018-05-30] MEDS: insulin Lispro (HumaLOG) vial - multi-dose SQ SCH ×3 (09:12→19:05)
[2018-05-30] MEDS ORDERED: nitroGLYCERIN 0.4mg SUBLingual tab SL PRN (11:00)
[2018-05-30 11:12] VITALS: BP 142/76
[2018-05-30] MEDS: metoprolol tartrate 12.5mg (1/2 tablet) PO SCH ×2 (12:08→20:46)
[2018-05-30] MEDS: enoxaparin 30mg/0.3ml syringe SUBCUT SCH ×2 (14:23→20:48)
[2018-05-30] MEDS: aspirin 325mg tablet, delayed-release (Ecotrin) PO SCH (14:24)
[2018-05-30] MEDS: enoxaparin 80mg/0.8ml syringe SUBCUT SCH ×2 (14:24→20:49)
[2018-05-30] MEDS: metroNIDAZOLE-Flagyl 500mg/NS 100 ML IV SCH ×2 (16:40→23:31)
[2018-05-30 19:00] VITALS: BP_SYST 119; BP_SYST 124; BP_DIAS 66; BP_DIAS 71
[2018-05-30] MEDS: LORazepam 0.5 MG tablet PO PRN (20:34)
[2018-05-30] MEDS: temazepam 15mg capsule PO SCH ×2 (20:46→22:29)
[2018-05-30] MEDS: insulin glargine (Lantus) pen - multi-dose SQ SCH (22:22)
[2018-05-31] VITALS: BP_SYST 119; BP_SYST 124; BP_DIAS 66; BP_DIAS 71
[2018-05-31 04:49] LABS: BASOPHILS % (AUTO) 0.3 % (0-1); EOSINOPHILS # (AUTO) 0.3 X10'3 (0-0.9); EOSINOPHILS % (AUTO) 3.7 % (0-6); HEMATOCRIT 27.4 % (42.0-52.0); HEMOGLOBIN 9.2 g/dl (14.0-17.9); LYMPHOCYTES % (AUTO) 11.1 % (21-51); MEAN CORPUSCULAR HEMOGLOBIN 28.1 PG (27.0-31.0); MEAN CORPUSCULAR HGB CONC 33.5 % (33.0-36.5); MEAN PLATELET VOLUME 7.4 FL (7.4-10.4); MONOCYTES # (AUTO) 0.6 X10'3 (0-0.9); MONOCYTES % (AUTO) 6.8 % (2-12); NEUTROPHILS # (AUTO) 6.8 X10'3 (1.8-7.7); NEUTROPHILS % (AUTO) 78.1 % (42-75); PLATELET COUNT 364 X10'3 (140-440); RED BLOOD COUNT 3.26 X10'6 (4.70-6.10); RED CELL DISTRIBUTION WIDTH 13.6 % (11.5-14.5); WHITE BLOOD COUNT 8.8 X10'3 (4.5-11.0)
[2018-05-31 05:20] LABS: ALANINE AMINOTRANSFERASE 37 U/L (12-78); ALBUMIN 1.8 G/DL (3.4-5.0); ALBUMIN/GLOBULIN RATIO 0.4 (1.1-1.5); ALKALINE PHOSPHATASE 103 IU/L (46-116); ANION GAP 6 (8-16); ASPARTATE AMINO TRANSFERASE 20 U/L (10-37); BILIRUBIN,TOTAL 0.1 MG/DL (0.1-1.0); BLOOD UREA NITROGEN 35 MG/DL (7-18); BUN/CREATININE RATIO 26.9 (5.4-32.0); CALCIUM 8.5 MG/DL (8.5-10.1); CHLORIDE 101 MMOL/L (99-107); GLUCOSE 162 MG/DL (70-104); MAGNESIUM 2.2 MG/DL (1.5-2.4); POTASSIUM 4.9 MMOL/L (3.5-5.1); SODIUM 130 MMOL/L (135-145); TOTAL CARBON DIOXIDE 23.1 MMOL/L (24-32); TOTAL PROTEIN 6.1 G/DL (6.4-8.2); eGFR 56 ML/MIN
[2018-05-31 07:13] VITALS: BP 148/74
[2018-05-31] MEDS: K and/or MAG REPLACEMENT MC SCH (08:00)
[2018-05-31] MEDS: metroNIDAZOLE-Flagyl 500mg/NS 100 ML IV SCH ×3 (08:50→23:54)
[2018-05-31] MEDS: CefTRIAXone/D5W-Rocephin 1gm 50 ML IV SCH (08:51)
[2018-05-31] MEDS: aspirin 325mg tablet, delayed-release (Ecotrin) PO SCH (08:53)
[2018-05-31] MEDS: lactobacillus rhamnosus 10,000 MMU CELLS/CAPSULE PO SCH ×2 (08:53→19:18)
[2018-05-31] MEDS: metoprolol tartrate 12.5mg (1/2 tablet) PO SCH ×2 (08:53→19:26)
[2018-05-31] MEDS: sertraline 25mg tablet PO SCH (08:53)
[2018-05-31] MEDS: docusate sod 100mg capsule PO SCH ×2 (08:53→19:43)
[2018-05-31] MEDS: insulin Lispro (HumaLOG) vial - multi-dose SQ SCH ×3 (08:56→19:17)
[2018-05-31] MEDS: enoxaparin 80mg/0.8ml syringe SUBCUT SCH ×2 (08:57→19:23)
[2018-05-31] MEDS: enoxaparin 30mg/0.3ml syringe SUBCUT SCH ×2 (08:58→19:22)
[2018-05-31 11:26] VITALS: BP 129/71
[2018-05-31 18:00] VITALS: BP 149/69
[2018-05-31] MEDS: LORazepam 0.5 MG tablet PO PRN (19:18)
[2018-05-31] MEDS: HYDROcodone/acetaminophen 5mg/325mg tablet PO PRN (19:20)
[2018-05-31] MEDS: insulin glargine (Lantus) pen - multi-dose SQ SCH (21:09)
[2018-05-31] MEDS: temazepam 15mg capsule PO SCH (21:12)
[2018-06-01] VITALS: BP 115/54
[2018-06-01] MEDS: LORazepam 0.5 MG tablet PO PRN ×2 (04:39→19:32)
[2018-06-01] MEDS: magnesium hydroxide 30ml (MOM) UD suspension PO PRN (04:53)
[2018-06-01 05:09] LABS: BASOPHILS # (AUTO) 0.1 X10'3 (0-0.2); BASOPHILS % (AUTO) 0.9 % (0-1); EOSINOPHILS # (AUTO) 0.3 X10'3 (0-0.9); HEMATOCRIT 29.4 % (42.0-52.0); HEMOGLOBIN 9.9 g/dl (14.0-17.9); LYMPHOCYTES # (AUTO) 1.2 X10'3 (1.1-4.8); LYMPHOCYTES % (AUTO) 12.8 % (21-51); MEAN CORPUSCULAR HEMOGLOBIN 28.3 PG (27.0-31.0); MEAN CORPUSCULAR HGB CONC 33.6 % (33.0-36.5); MEAN CORPUSCULAR VOLUME 84.2 FL (78-98); MEAN PLATELET VOLUME 7.8 FL (7.4-10.4); MONOCYTES # (AUTO) 0.6 X10'3 (0-0.9); MONOCYTES % (AUTO) 6.5 % (2-12); NEUTROPHILS % (AUTO) 76.8 % (42-75); PLATELET COUNT 418 X10'3 (140-440); RED BLOOD COUNT 3.49 X10'6 (4.70-6.10); RED CELL DISTRIBUTION WIDTH 13.6 % (11.5-14.5); WHITE BLOOD COUNT 9.1 X10'3 (4.5-11.0)
[2018-06-01 05:22] LABS: ALANINE AMINOTRANSFERASE 40 U/L (12-78); ALBUMIN 2.1 G/DL (3.4-5.0); ALBUMIN/GLOBULIN RATIO 0.5 (1.1-1.5); ALKALINE PHOSPHATASE 102 IU/L (46-116); ANION GAP 7 (8-16); ASPARTATE AMINO TRANSFERASE 21 U/L (10-37); BILIRUBIN,TOTAL 0.2 MG/DL (0.1-1.0); BLOOD UREA NITROGEN 27 MG/DL (7-18); BUN/CREATININE RATIO 20.3 (5.4-32.0); CALCIUM 8.6 MG/DL (8.5-10.1); CHLORIDE 101 MMOL/L (99-107); CREATININE 1.33 MG/DL (0.60-1.10); GLUCOSE 154 MG/DL (70-104); MAGNESIUM 2.1 MG/DL (1.5-2.4); POTASSIUM 4.8 MMOL/L (3.5-5.1); SODIUM 133 MMOL/L (135-145); TOTAL PROTEIN 6.6 G/DL (6.4-8.2); eGFR 54 ML/MIN
[2018-06-01] MEDS: lactobacillus rhamnosus 10,000 MMU CELLS/CAPSULE PO SCH ×2 (07:25→19:32)
[2018-06-01] MEDS: metoprolol tartrate 12.5mg (1/2 tablet) PO SCH ×2 (07:25→19:32)
[2018-06-01] MEDS: CefTRIAXone/D5W-Rocephin 1gm 50 ML IV SCH (07:25)
[2018-06-01] MEDS: aspirin 325mg tablet, delayed-release (Ecotrin) PO SCH (07:25)
[2018-06-01] MEDS: sertraline 25mg tablet PO SCH (07:25)
[2018-06-01] MEDS: enoxaparin 80mg/0.8ml syringe SUBCUT SCH ×2 (07:26→19:40)
[2018-06-01] MEDS: docusate sod 100mg capsule PO SCH ×2 (07:26→19:32)
[2018-06-01] MEDS: enoxaparin 30mg/0.3ml syringe SUBCUT SCH ×2 (07:27→19:40)
[2018-06-01 07:36] VITALS: BP 113/54
[2018-06-01] MEDS: K and/or MAG REPLACEMENT MC SCH (08:00)
[2018-06-01] MEDS: insulin Lispro (HumaLOG) vial - multi-dose SQ SCH ×3 (09:10→19:48)
[2018-06-01] MEDS: metroNIDAZOLE-Flagyl 500mg/NS 100 ML IV SCH ×3 (09:12→23:43)
[2018-06-01 11:00] VITALS: BP 147/77
[2018-06-01] MEDS ORDERED: LIDOcaine 1%/PF 5ML 10 MG/ML VIAL IJ ONE (11:55)
[2018-06-01 18:00] VITALS: BP 134/69
[2018-06-01] MEDS: temazepam 15mg capsule PO SCH (21:30)
[2018-06-01] MEDS: insulin glargine (Lantus) pen - multi-dose SQ SCH (21:32)
[2018-06-02 00:20] VITALS: BP 120/69
[2018-06-02 05:29] LABS: BASOPHILS # (AUTO) 0.1 X10'3 (0-0.2); BASOPHILS % (AUTO) 0.9 % (0-1); EOSINOPHILS # (AUTO) 0.3 X10'3 (0-0.9); EOSINOPHILS % (AUTO) 3.8 % (0-6); HEMATOCRIT 29.6 % (42.0-52.0); HEMOGLOBIN 10.1 g/dl (14.0-17.9); LYMPHOCYTES # (AUTO) 1.1 X10'3 (1.1-4.8); LYMPHOCYTES % (AUTO) 13.2 % (21-51); MEAN CORPUSCULAR HEMOGLOBIN 28.3 PG (27.0-31.0); MEAN CORPUSCULAR VOLUME 83.3 FL (78-98); MEAN PLATELET VOLUME 7.3 FL (7.4-10.4); MONOCYTES # (AUTO) 0.5 X10'3 (0-0.9); MONOCYTES % (AUTO) 6.2 % (2-12); NEUTROPHILS # (AUTO) 6.5 X10'3 (1.8-7.7); NEUTROPHILS % (AUTO) 75.9 % (42-75); PLATELET COUNT 440 X10'3 (140-440); RED BLOOD COUNT 3.55 X10'6 (4.70-6.10); RED CELL DISTRIBUTION WIDTH 13.8 % (11.5-14.5); WHITE BLOOD COUNT 8.5 X10'3 (4.5-11.0)
[2018-06-02] MEDS: LORazepam 0.5 MG tablet PO PRN ×2 (05:35→20:09)
[2018-06-02 05:59] LABS: ALANINE AMINOTRANSFERASE 34 U/L (12-78); ALBUMIN/GLOBULIN RATIO 0.5 (1.1-1.5); ALKALINE PHOSPHATASE 98 IU/L (46-116); ANION GAP 5 (8-16); ASPARTATE AMINO TRANSFERASE 29 U/L (10-37); BILIRUBIN,TOTAL 0.2 MG/DL (0.1-1.0); BLOOD UREA NITROGEN 22 MG/DL (7-18); CALCIUM 8.7 MG/DL (8.5-10.1); CHLORIDE 104 MMOL/L (99-107); CREATININE 1.22 MG/DL (0.60-1.10); GLUCOSE 164 MG/DL (70-104); MAGNESIUM 2.2 MG/DL (1.5-2.4); POTASSIUM 4.9 MMOL/L (3.5-5.1); SODIUM 134 MMOL/L (135-145); TOTAL CARBON DIOXIDE 24.6 MMOL/L (24-32); TOTAL PROTEIN 6.4 G/DL (6.4-8.2); eGFR 60 ML/MIN
[2018-06-02] MEDS: K and/or MAG REPLACEMENT MC SCH (07:09)
[2018-06-02] MEDS: CefTRIAXone/D5W-Rocephin 1gm 50 ML IV SCH (07:18)
[2018-06-02] MEDS: aspirin 325mg tablet, delayed-release (Ecotrin) PO SCH (07:18)
[2018-06-02] MEDS: magnesium hydroxide 30ml (MOM) UD suspension PO PRN (07:18)
[2018-06-02] MEDS: metroNIDAZOLE-Flagyl 500mg/NS 100 ML IV SCH ×2 (07:18→17:00)
[2018-06-02] MEDS: metoprolol tartrate 12.5mg (1/2 tablet) PO SCH ×2 (07:18→20:10)
[2018-06-02] MEDS: docusate sod 100mg capsule PO SCH ×2 (07:18→20:00)
[2018-06-02] MEDS: lactobacillus rhamnosus 10,000 MMU CELLS/CAPSULE PO SCH ×2 (07:18→20:00)
[2018-06-02] MEDS: sertraline 25mg tablet PO SCH (07:18)
[2018-06-02] MEDS: enoxaparin 30mg/0.3ml syringe SUBCUT SCH ×2 (07:19→19:59)
[2018-06-02] MEDS: enoxaparin 80mg/0.8ml syringe SUBCUT SCH ×2 (07:19→20:00)
[2018-06-02 08:00] VITALS: BP 165/78
[2018-06-02] MEDS: insulin Lispro (HumaLOG) vial - multi-dose SQ SCH ×3 (08:56→19:58)
[2018-06-02 11:00] VITALS: BP 158/73
[2018-06-02 20:00] VITALS: BP 151/67
[2018-06-02] MEDS: temazepam 15mg capsule PO SCH (21:43)
[2018-06-02] MEDS: insulin glargine (Lantus) pen - multi-dose SQ SCH (21:43)
[2018-06-03] VITALS: BP 128/59
[2018-06-03] MEDS: metroNIDAZOLE-Flagyl 500mg/NS 100 ML IV SCH ×4 (00:08→23:34)
[2018-06-03] MEDS: LORazepam 0.5 MG tablet PO PRN (01:42)
[2018-06-03] MEDS: K and/or MAG REPLACEMENT MC SCH (06:58)
[2018-06-03] MEDS: CefTRIAXone/D5W-Rocephin 1gm 50 ML IV SCH (07:16)
[2018-06-03] MEDS: sertraline 25mg tablet PO SCH (07:16)
[2018-06-03] MEDS: lactobacillus rhamnosus 10,000 MMU CELLS/CAPSULE PO SCH ×2 (07:16→20:03)
[2018-06-03] MEDS: aspirin 325mg tablet, delayed-release (Ecotrin) PO SCH (07:16)
[2018-06-03] MEDS: docusate sod 100mg capsule PO SCH ×2 (07:16→20:03)
[2018-06-03] MEDS: metoprolol tartrate 12.5mg (1/2 tablet) PO SCH ×2 (07:16→20:03)
[2018-06-03] MEDS: enoxaparin 30mg/0.3ml syringe SUBCUT SCH ×2 (07:17→20:07)
[2018-06-03] MEDS: enoxaparin 80mg/0.8ml syringe SUBCUT SCH ×2 (07:18→20:06)
[2018-06-03 08:00] VITALS: BP 168/82
[2018-06-03] MEDS: insulin Lispro (HumaLOG) vial - multi-dose SQ SCH ×3 (09:19→18:56)
[2018-06-03 12:00] VITALS: BP 165/77
[2018-06-03] MEDS: ondansetron/PF 4mg/2ml inj IV PRN (12:51)
[2018-06-03 19:00] VITALS: BP 142/67
[2018-06-03] MEDS: insulin glargine (Lantus) pen - multi-dose SQ SCH (21:00)
[2018-06-03] MEDS: temazepam 15mg capsule PO SCH (21:07)
[2018-06-04] VITALS: BP 140/71
[2018-06-04 05:25] LABS: BASOPHILS % (AUTO) 0.4 % (0-1); EOSINOPHILS # (AUTO) 0.2 X10'3 (0-0.9); EOSINOPHILS % (AUTO) 3.1 % (0-6); HEMATOCRIT 30.6 % (42.0-52.0); HEMOGLOBIN 10.3 g/dl (14.0-17.9); LYMPHOCYTES % (AUTO) 12.4 % (21-51); MEAN CORPUSCULAR HEMOGLOBIN 28.2 PG (27.0-31.0); MEAN CORPUSCULAR HGB CONC 33.6 % (33.0-36.5); MEAN CORPUSCULAR VOLUME 84.1 FL (78-98); MONOCYTES # (AUTO) 0.5 X10'3 (0-0.9); MONOCYTES % (AUTO) 6.3 % (2-12); NEUTROPHILS # (AUTO) 6.3 X10'3 (1.8-7.7); NEUTROPHILS % (AUTO) 77.8 % (42-75); PLATELET COUNT 465 X10'3 (140-440); RED BLOOD COUNT 3.64 X10'6 (4.70-6.10); RED CELL DISTRIBUTION WIDTH 13.7 % (11.5-14.5); WHITE BLOOD COUNT 8.1 X10'3 (4.5-11.0)
[2018-06-04 05:38] LABS: ALBUMIN 2.1 G/DL (3.4-5.0); ANION GAP 7 (8-16); BLOOD UREA NITROGEN 17 MG/DL (7-18); BUN/CREATININE RATIO 16.8 (5.4-32.0); CHLORIDE 103 MMOL/L (99-107); CREATININE 1.01 MG/DL (0.60-1.10); GLUCOSE 118 MG/DL (70-104); POTASSIUM 4.6 MMOL/L (3.5-5.1); SODIUM 136 MMOL/L (135-145); TOTAL CARBON DIOXIDE 26.2 MMOL/L (24-32); eGFR 75 ML/MIN
[2018-06-04 07:13] VITALS: BP 169/84
[2018-06-04] MEDS: K and/or MAG REPLACEMENT MC SCH (09:19)
[2018-06-04] MEDS: enoxaparin 80mg/0.8ml syringe SUBCUT SCH ×2 (09:31→19:43)
[2018-06-04] MEDS: enoxaparin 30mg/0.3ml syringe SUBCUT SCH ×2 (09:31→19:36)
[2018-06-04] MEDS: aspirin 325mg tablet, delayed-release (Ecotrin) PO SCH (09:35)
[2018-06-04] MEDS: lactobacillus rhamnosus 10,000 MMU CELLS/CAPSULE PO SCH ×2 (09:41→19:36)
[2018-06-04] MEDS: sertraline 25mg tablet PO SCH (09:41)
[2018-06-04] MEDS: metoprolol tartrate 12.5mg (1/2 tablet) PO SCH ×2 (09:41→19:36)
[2018-06-04] MEDS: docusate sod 100mg capsule PO SCH ×2 (09:42→19:37)
[2018-06-04] MEDS: CefTRIAXone/D5W-Rocephin 1gm 50 ML IV SCH (09:42)
[2018-06-04] MEDS: metroNIDAZOLE-Flagyl 500mg/NS 100 ML IV SCH (10:35)
[2018-06-04 12:00] VITALS: BP 170/84
[2018-06-04] MEDS: insulin Lispro (HumaLOG) vial - multi-dose SQ SCH ×2 (13:04→19:33)
[2018-06-04 19:00] VITALS: BP 153/78
[2018-06-04] MEDS: piperacillin/tazo 3.375gm/50ml 50 ML IV SCH (19:37)
[2018-06-04] MEDS: LORazepam 0.5 MG tablet PO PRN (19:46)
[2018-06-04] MEDS: temazepam 15mg capsule PO SCH (22:22)
[2018-06-04] MEDS: insulin glargine (Lantus) pen - multi-dose SQ SCH (22:26)
[2018-06-05] VITALS: BP 176/89
[2018-06-05] MEDS: piperacillin/tazo 3.375gm/50ml 50 ML IV SCH ×3 (01:43→14:11)
[2018-06-05 02:11] VITALS: BP 168/88
[2018-06-05 06:54] VITALS: BP 177/93
[2018-06-05] MEDS: K and/or MAG REPLACEMENT MC SCH (08:00)
[2018-06-05] MEDS: aspirin 325mg tablet, delayed-release (Ecotrin) PO SCH (08:05)
[2018-06-05] MEDS: enoxaparin 80mg/0.8ml syringe SUBCUT SCH (08:05)
[2018-06-05] MEDS: enoxaparin 30mg/0.3ml syringe SUBCUT SCH (08:05)
[2018-06-05] MEDS: lactobacillus rhamnosus 10,000 MMU CELLS/CAPSULE PO SCH (08:06)
[2018-06-05] MEDS: docusate sod 100mg capsule PO SCH (08:06)
[2018-06-05] MEDS: metoprolol tartrate 12.5mg (1/2 tablet) PO SCH (08:06)
[2018-06-05] MEDS: sertraline 25mg tablet PO SCH (08:06)
[2018-06-05] MEDS: insulin Lispro (HumaLOG) vial - multi-dose SQ SCH ×2 (09:13→14:09)
[2018-06-05] MEDS: magnesium hydroxide 30ml (MOM) UD suspension PO PRN (10:24)
[2018-06-05 11:48] VITALS: BP 147/71
[2018-06-05] MEDS ORDERED: NITR0.4T51 SL (15:50)
[2018-06-05] MEDS ORDERED: PIPE3.374 IV (15:50)
[2018-06-05] MEDS ORDERED: ENOX80DI10 SUBCUT (15:50)
[2018-06-05] MEDS ORDERED: SERT25TA5 PO (15:50)
[2018-06-05] MEDS ORDERED: HYDR-569 PO (15:50)
[2018-06-05] MEDS ORDERED: ATI0.5T PO (15:50)
[2018-06-05] MEDS ORDERED: METO25TA6 PO (15:50)
[2018-06-05] MEDS ORDERED: ASPI-41 PO (15:50)
== END 2018-06-05 18:05 | DRG 463 ==
LOC: WOUND CARE 09:16 → SUR 3N 13:24
PROVIDERS: ADMIT Internal Medicine; ATTEND Internal Medicine
PROC: 0HDMXZZ Extraction of Right Foot Skin, External Approach (ICD-10-PCS; principal; 2018-06-01)
PROC: 0JBQ0ZZ Excision of Right Foot Subcutaneous Tissue and Fascia, Open Approach (ICD-10-PCS; 2018-06-04)
PROC: 02HV33Z Insertion of Infusion Device into Superior Vena Cava, Percutaneous Approach (ICD-10-PCS; 2018-06-05)
PROC: B548ZZA Ultrasonography of Superior Vena Cava, Guidance (ICD-10-PCS; 2018-06-05)
DX: T87.43 Infection of amputation stump, right lower extremity (principal); N17.0 Acute kidney failure with tubular necrosis; M86.8X7 Other osteomyelitis, ankle and foot; E87.1 Hypo-osmolality and hyponatremia; L03.115 Cellulitis of right lower limb; E44.1 Mild protein-calorie malnutrition; E11.69 Type 2 diabetes mellitus with other specified complication; E11.628 Type 2 diabetes mellitus with other skin complications; N18.3 Chronic kidney disease, stage 3 (moderate); E11.42 Type 2 diabetes mellitus with diabetic polyneuropathy; E11.22 Type 2 diabetes mellitus with diabetic chronic kidney disease; I25.10 Atherosclerotic heart disease of native coronary artery without angina pectoris; B96.5 Pseudomonas (aeruginosa) (mallei) (pseudomallei) as the cause of diseases classified elsewhere; B95.2 Enterococcus as the cause of diseases classified elsewhere; B95.61 Methicillin susceptible Staphylococcus aureus infection as the cause of diseases classified elsewhere; F32.9 Major depressive disorder, single episode, unspecified; D64.9 Anemia, unspecified; E86.0 Dehydration; F41.9 Anxiety disorder, unspecified; Y83.8 Other surgical procedures as the cause of abnormal reaction of the patient, or of later complication, without mention of misadventure at the time of the procedure; Z66 Do not resuscitate; Z89.512 Acquired absence of left leg below knee; Z95.5 Presence of coronary angioplasty implant and graft; Z88.5 Allergy status to narcotic agent; Z68.38 Body mass index [BMI] 38.0-38.9, adult; Y92.89 Other specified places as the place of occurrence of the external cause
CPT/HCPCS: 36415; 36416; 36569; 73718; 76937; 78582; 80048; 80053; 82948; 83036; 83605; 83735; 84484; 85025; 87040; 87070; 87077; 87186; 93005; 93308; 93926; 93970; 97110; 97161; 97530; 97542; A4315; A6213; A6223; A6258; A6446; A6449; A9539; A9540; J0696; J1610; J1644; J1650; J1815; J2001; J2060; J2405; J2543; J3490; J7030; J7120

== ENCOUNTER 2018-06-13 09:57 | Day surgery (SDC) | payer MEDICARE, MEDICAID ==
[~2018-06-13 09:57] MED LIST changes: -ASPI-1265 PO; +ASPI-41 PO; +ATI0.5T PO; -CARV-50 PO; +ENOX80DI10 SUBCUT; -FURO-150 PO; +HYDR-569 PO; +INSU100I31 SQ; +INSU100I8 SQ; -LISI2.5T2 PO; +METO25TA6 PO; +NITR0.4T51 SL; -OLAN5TAB5 PO; +PIPE3.374 IV; +SERT25TA5 PO; -SPIR25TA5 PO
[2018-06-13] MEDS ORDERED: RIVA20TA PO (15:17)
[2018-06-13] MEDS ORDERED: METO25TA6 PO (15:19)
[2018-06-13] MEDS ORDERED: HYDR-569 PO (15:20)
[2018-06-13] MEDS ORDERED: SERT25TA PO (15:20)
[2018-06-13] MEDS ORDERED: DOCU-28 PO (15:21)
== END 2018-06-13 12:14 | disposition home or self-care (01) ==
LOC: WOUND CARE 09:57
PROVIDERS: ATTEND Surgery
DX: T81.89XA Other complications of procedures, not elsewhere classified, initial encounter (principal); E11.621 Type 2 diabetes mellitus with foot ulcer; L97.512 Non-pressure chronic ulcer of other part of right foot with fat layer exposed; L89.610 Pressure ulcer of right heel, unstageable; L97.411 Non-pressure chronic ulcer of right heel and midfoot limited to breakdown of skin; E11.51 Type 2 diabetes mellitus with diabetic peripheral angiopathy without gangrene; E11.65 Type 2 diabetes mellitus with hyperglycemia; E11.22 Type 2 diabetes mellitus with diabetic chronic kidney disease; I13.0 Hypertensive heart and chronic kidney disease with heart failure and stage 1 through stage 4 chronic kidney disease, or unspecified chronic kidney disease; I50.33 Acute on chronic diastolic (congestive) heart failure; N18.9 Chronic kidney disease, unspecified; I25.2 Old myocardial infarction; I25.10 Atherosclerotic heart disease of native coronary artery without angina pectoris; E78.00 Pure hypercholesterolemia, unspecified; Z89.512 Acquired absence of left leg below knee; Z89.431 Acquired absence of right foot; Z79.4 Long term (current) use of insulin; Z87.891 Personal history of nicotine dependence; Z95.5 Presence of coronary angioplasty implant and graft; Z86.73 Personal history of transient ischemic attack (TIA), and cerebral infarction without residual deficits; Y83.8 Other surgical procedures as the cause of abnormal reaction of the patient, or of later complication, without mention of misadventure at the time of the procedure
CPT/HCPCS: 11042; 36416; 82948; A4414; A4649; A4456

== ENCOUNTER 2018-06-20 09:50 | Day surgery (SDC) | payer MEDICARE, MEDICAID ==
[~2018-06-20 09:50] MED LIST changes: +DOCU-28 PO; -PIPE3.374 IV; +RIVA20TA PO; +SERT25TA PO
== END 2018-06-20 12:28 | disposition home or self-care (01) ==
LOC: WOUND CARE 09:50
PROVIDERS: ATTEND Surgery
DX: T81.89XD Other complications of procedures, not elsewhere classified, subsequent encounter (principal); E11.621 Type 2 diabetes mellitus with foot ulcer; L97.512 Non-pressure chronic ulcer of other part of right foot with fat layer exposed; L89.610 Pressure ulcer of right heel, unstageable; L97.411 Non-pressure chronic ulcer of right heel and midfoot limited to breakdown of skin; E11.51 Type 2 diabetes mellitus with diabetic peripheral angiopathy without gangrene; E11.65 Type 2 diabetes mellitus with hyperglycemia; E11.40 Type 2 diabetes mellitus with diabetic neuropathy, unspecified; E11.22 Type 2 diabetes mellitus with diabetic chronic kidney disease; I13.0 Hypertensive heart and chronic kidney disease with heart failure and stage 1 through stage 4 chronic kidney disease, or unspecified chronic kidney disease; I50.33 Acute on chronic diastolic (congestive) heart failure; N18.9 Chronic kidney disease, unspecified; I25.2 Old myocardial infarction; I25.10 Atherosclerotic heart disease of native coronary artery without angina pectoris; E78.00 Pure hypercholesterolemia, unspecified; Z89.512 Acquired absence of left leg below knee; Z89.431 Acquired absence of right foot; Z79.4 Long term (current) use of insulin; Z87.891 Personal history of nicotine dependence; Z95.5 Presence of coronary angioplasty implant and graft; Z86.73 Personal history of transient ischemic attack (TIA), and cerebral infarction without residual deficits; Y83.8 Other surgical procedures as the cause of abnormal reaction of the patient, or of later complication, without mention of misadventure at the time of the procedure
CPT/HCPCS: 11042; 97605; A4649; A6209

== ENCOUNTER 2018-06-26 09:30 | Day surgery (SDC) | payer MEDICARE, MEDICAID ==
[2018-06-26] MEDS ORDERED: LIDOcaine 2% 5ml jelly ONE (10:34)
== END 2018-06-26 11:16 | disposition home or self-care (01) ==
LOC: WOUND CARE 09:30
PROVIDERS: ATTEND Surgery
DX: T87.89 Other complications of amputation stump (principal); E11.621 Type 2 diabetes mellitus with foot ulcer; L97.512 Non-pressure chronic ulcer of other part of right foot with fat layer exposed; L89.610 Pressure ulcer of right heel, unstageable; L97.411 Non-pressure chronic ulcer of right heel and midfoot limited to breakdown of skin; E11.51 Type 2 diabetes mellitus with diabetic peripheral angiopathy without gangrene; E11.65 Type 2 diabetes mellitus with hyperglycemia; E11.40 Type 2 diabetes mellitus with diabetic neuropathy, unspecified; E11.22 Type 2 diabetes mellitus with diabetic chronic kidney disease; I13.0 Hypertensive heart and chronic kidney disease with heart failure and stage 1 through stage 4 chronic kidney disease, or unspecified chronic kidney disease; I50.33 Acute on chronic diastolic (congestive) heart failure; N18.9 Chronic kidney disease, unspecified; I25.2 Old myocardial infarction; I25.10 Atherosclerotic heart disease of native coronary artery without angina pectoris; E78.00 Pure hypercholesterolemia, unspecified; E78.5 Hyperlipidemia, unspecified; Z89.512 Acquired absence of left leg below knee; Z89.431 Acquired absence of right foot; Z79.4 Long term (current) use of insulin; Z87.891 Personal history of nicotine dependence; Z95.5 Presence of coronary angioplasty implant and graft; Z86.73 Personal history of transient ischemic attack (TIA), and cerebral infarction without residual deficits; Y83.5 Amputation of limb(s) as the cause of abnormal reaction of the patient, or of later complication, without mention of misadventure at the time of the procedure
CPT/HCPCS: 11042; 36416; 82948; A4414; A6021; A6196; A6206; A6212; A6213; A6446

== ENCOUNTER 2018-07-03 09:42 | Outpatient (CLI) | payer MEDICARE, MEDICAID | END 2018-07-03 10:55 | disposition home or self-care (01) | LOC: WOUND CARE 09:42 → EDSTATUS 10:00 → WOUND CARE 10:55 | PROVIDERS: ATTEND Surgery | DX: T87.89 Other complications of amputation stump (principal); E11.621 Type 2 diabetes mellitus with foot ulcer; L97.512 Non-pressure chronic ulcer of other part of right foot with fat layer exposed; L97.411 Non-pressure chronic ulcer of right heel and midfoot limited to breakdown of skin; E11.51 Type 2 diabetes mellitus with diabetic peripheral angiopathy without gangrene; E11.65 Type 2 diabetes mellitus with hyperglycemia; E11.40 Type 2 diabetes mellitus with diabetic neuropathy, unspecified; E11.22 Type 2 diabetes mellitus with diabetic chronic kidney disease; I13.0 Hypertensive heart and chronic kidney disease with heart failure and stage 1 through stage 4 chronic kidney disease, or unspecified chronic kidney disease; I50.33 Acute on chronic diastolic (congestive) heart failure; N18.9 Chronic kidney disease, unspecified; I25.2 Old myocardial infarction; I25.10 Atherosclerotic heart disease of native coronary artery without angina pectoris; E78.00 Pure hypercholesterolemia, unspecified; E78.5 Hyperlipidemia, unspecified; Z89.512 Acquired absence of left leg below knee; Z89.431 Acquired absence of right foot; Z79.4 Long term (current) use of insulin; Z87.891 Personal history of nicotine dependence; Z95.5 Presence of coronary angioplasty implant and graft; Z86.73 Personal history of transient ischemic attack (TIA), and cerebral infarction without residual deficits; Y83.5 Amputation of limb(s) as the cause of abnormal reaction of the patient, or of later complication, without mention of misadventure at the time of the procedure | CPT/HCPCS: 99211; A6021; A6196; A6206; A6209; A6212; A6222; A6446 ==

== ENCOUNTER 2018-07-10 09:40 | Day surgery (SDC) | payer MEDICARE, MEDICAID ==
[2018-07-10] MEDS ORDERED: LIDOcaine 2% 5ml jelly ONE (10:20)
[2018-07-10] MEDS ORDERED: dextrose ORAL solution 15 GM/59 ML bottle ONE (10:39)
== END 2018-07-10 10:55 | disposition home or self-care (01) ==
LOC: WOUND CARE 09:40
PROVIDERS: ATTEND Surgery
DX: T87.89 Other complications of amputation stump (principal); E11.621 Type 2 diabetes mellitus with foot ulcer; L97.512 Non-pressure chronic ulcer of other part of right foot with fat layer exposed; L89.610 Pressure ulcer of right heel, unstageable; L97.411 Non-pressure chronic ulcer of right heel and midfoot limited to breakdown of skin; E11.51 Type 2 diabetes mellitus with diabetic peripheral angiopathy without gangrene; E11.65 Type 2 diabetes mellitus with hyperglycemia; E11.40 Type 2 diabetes mellitus with diabetic neuropathy, unspecified; E11.22 Type 2 diabetes mellitus with diabetic chronic kidney disease; I13.0 Hypertensive heart and chronic kidney disease with heart failure and stage 1 through stage 4 chronic kidney disease, or unspecified chronic kidney disease; I50.33 Acute on chronic diastolic (congestive) heart failure; N18.9 Chronic kidney disease, unspecified; I25.2 Old myocardial infarction; I25.10 Atherosclerotic heart disease of native coronary artery without angina pectoris; E78.00 Pure hypercholesterolemia, unspecified; E78.5 Hyperlipidemia, unspecified; Z89.512 Acquired absence of left leg below knee; Z89.431 Acquired absence of right foot; Z79.4 Long term (current) use of insulin; Z87.891 Personal history of nicotine dependence; Z95.5 Presence of coronary angioplasty implant and graft; Z86.73 Personal history of transient ischemic attack (TIA), and cerebral infarction without residual deficits; Y83.5 Amputation of limb(s) as the cause of abnormal reaction of the patient, or of later complication, without mention of misadventure at the time of the procedure
CPT/HCPCS: 36416; 82948; 97597; A6021; A6196; A6206; A6209; A6446

== ENCOUNTER 2018-07-17 09:51 | Outpatient (CLI) | payer MEDICARE, MEDICAID ==
[2018-07-17] MEDS ORDERED: LIDOcaine 2% 5ml jelly ONE (11:14)
== END 2018-07-17 11:49 | disposition home or self-care (01) ==
LOC: WOUND CARE 09:51 → EDSTATUS 10:00 → WOUND CARE 11:49
PROVIDERS: ATTEND Surgery
DX: T81.89XD Other complications of procedures, not elsewhere classified, subsequent encounter (principal); E11.621 Type 2 diabetes mellitus with foot ulcer; L97.512 Non-pressure chronic ulcer of other part of right foot with fat layer exposed; L89.610 Pressure ulcer of right heel, unstageable; L97.411 Non-pressure chronic ulcer of right heel and midfoot limited to breakdown of skin; E11.51 Type 2 diabetes mellitus with diabetic peripheral angiopathy without gangrene; E11.65 Type 2 diabetes mellitus with hyperglycemia; E11.40 Type 2 diabetes mellitus with diabetic neuropathy, unspecified; E11.22 Type 2 diabetes mellitus with diabetic chronic kidney disease; I13.0 Hypertensive heart and chronic kidney disease with heart failure and stage 1 through stage 4 chronic kidney disease, or unspecified chronic kidney disease; I50.33 Acute on chronic diastolic (congestive) heart failure; N18.9 Chronic kidney disease, unspecified; I25.2 Old myocardial infarction; I25.10 Atherosclerotic heart disease of native coronary artery without angina pectoris; E78.00 Pure hypercholesterolemia, unspecified; E78.5 Hyperlipidemia, unspecified; Z89.512 Acquired absence of left leg below knee; Z89.431 Acquired absence of right foot; Z79.4 Long term (current) use of insulin; Z87.891 Personal history of nicotine dependence; Z95.5 Presence of coronary angioplasty implant and graft; Z86.73 Personal history of transient ischemic attack (TIA), and cerebral infarction without residual deficits; Y83.8 Other surgical procedures as the cause of abnormal reaction of the patient, or of later complication, without mention of misadventure at the time of the procedure
CPT/HCPCS: 82948; 99215; A6021; A6196; A6212; A6213; A6446

== ENCOUNTER 2018-07-24 10:00 | Day surgery (SDC) | payer MEDICARE, MEDICAID ==
[2018-07-24] MEDS ORDERED: LIDOcaine/PRILOcaine 5gm cream TP ONE (11:43)
== END 2018-07-24 12:36 | disposition home or self-care (01) ==
LOC: WOUND CARE 10:00
PROVIDERS: ATTEND Surgery
DX: T87.89 Other complications of amputation stump (principal); E11.621 Type 2 diabetes mellitus with foot ulcer; L97.512 Non-pressure chronic ulcer of other part of right foot with fat layer exposed; L89.610 Pressure ulcer of right heel, unstageable; L97.411 Non-pressure chronic ulcer of right heel and midfoot limited to breakdown of skin; E11.51 Type 2 diabetes mellitus with diabetic peripheral angiopathy without gangrene; E11.65 Type 2 diabetes mellitus with hyperglycemia; E11.40 Type 2 diabetes mellitus with diabetic neuropathy, unspecified; E11.22 Type 2 diabetes mellitus with diabetic chronic kidney disease; I13.0 Hypertensive heart and chronic kidney disease with heart failure and stage 1 through stage 4 chronic kidney disease, or unspecified chronic kidney disease; I50.33 Acute on chronic diastolic (congestive) heart failure; N18.9 Chronic kidney disease, unspecified; I25.2 Old myocardial infarction; I25.10 Atherosclerotic heart disease of native coronary artery without angina pectoris; E78.00 Pure hypercholesterolemia, unspecified; E78.5 Hyperlipidemia, unspecified; Z89.512 Acquired absence of left leg below knee; Z89.431 Acquired absence of right foot; Z79.4 Long term (current) use of insulin; Z87.891 Personal history of nicotine dependence; Z95.5 Presence of coronary angioplasty implant and graft; Z86.73 Personal history of transient ischemic attack (TIA), and cerebral infarction without residual deficits; Y83.5 Amputation of limb(s) as the cause of abnormal reaction of the patient, or of later complication, without mention of misadventure at the time of the procedure
CPT/HCPCS: 11042; 36416; 82948; A6021; A6196; A6206; A6446

== ENCOUNTER 2018-08-08 09:35 | Day surgery (SDC) | payer MEDICARE, MEDICAID | END 2018-08-08 11:44 | disposition home or self-care (01) | LOC: WOUND CARE 09:35 | PROVIDERS: ATTEND Surgery | DX: T87.89 Other complications of amputation stump (principal); E11.621 Type 2 diabetes mellitus with foot ulcer; L97.512 Non-pressure chronic ulcer of other part of right foot with fat layer exposed; L89.610 Pressure ulcer of right heel, unstageable; L97.411 Non-pressure chronic ulcer of right heel and midfoot limited to breakdown of skin; E11.51 Type 2 diabetes mellitus with diabetic peripheral angiopathy without gangrene; E11.65 Type 2 diabetes mellitus with hyperglycemia; E11.40 Type 2 diabetes mellitus with diabetic neuropathy, unspecified; E11.22 Type 2 diabetes mellitus with diabetic chronic kidney disease; I13.0 Hypertensive heart and chronic kidney disease with heart failure and stage 1 through stage 4 chronic kidney disease, or unspecified chronic kidney disease; I50.33 Acute on chronic diastolic (congestive) heart failure; N18.9 Chronic kidney disease, unspecified; I25.2 Old myocardial infarction; I25.10 Atherosclerotic heart disease of native coronary artery without angina pectoris; E78.00 Pure hypercholesterolemia, unspecified; E78.5 Hyperlipidemia, unspecified; Z89.512 Acquired absence of left leg below knee; Z89.431 Acquired absence of right foot; Z79.4 Long term (current) use of insulin; Z87.891 Personal history of nicotine dependence; Z95.5 Presence of coronary angioplasty implant and graft; Z86.73 Personal history of transient ischemic attack (TIA), and cerebral infarction without residual deficits; Y83.5 Amputation of limb(s) as the cause of abnormal reaction of the patient, or of later complication, without mention of misadventure at the time of the procedure | CPT/HCPCS: 11042; 36416; 82948; A6021; A6206; A6209; A6446 ==

== ENCOUNTER 2018-08-15 09:55 | Day surgery (SDC) | payer MEDICARE, MEDICAID ==
[2018-08-16] MEDS ORDERED: SENN-161 PO (02:31)
[2018-08-16] MEDS ORDERED: METO-292 PO (02:31)
[2018-08-16] MEDS ORDERED: LOSA100T15 PO (02:31)
[2018-08-16] MEDS ORDERED: MAGN400O6 PO (02:31)
[2018-08-16] MEDS ORDERED: SUCR1TAB34 PO (02:31)
[2018-08-16] MEDS ORDERED: POLY119P5 PO (02:31)
[2018-08-16] MEDS ORDERED: MICONAZOLE (02:31)
[2018-08-16] MEDS ORDERED: MELA3TAB PO (02:31)
[2018-08-16] MEDS ORDERED: CARV25TA PO (02:31)
[2018-08-16] MEDS ORDERED: MULT-38 PO (02:31)
== END 2018-08-15 11:24 | disposition home or self-care (01) ==
LOC: WOUND CARE 09:55
PROVIDERS: ATTEND Surgery
DX: T87.89 Other complications of amputation stump (principal); E11.621 Type 2 diabetes mellitus with foot ulcer; L97.512 Non-pressure chronic ulcer of other part of right foot with fat layer exposed; L89.613 Pressure ulcer of right heel, stage 3; L97.411 Non-pressure chronic ulcer of right heel and midfoot limited to breakdown of skin; E11.622 Type 2 diabetes mellitus with other skin ulcer; L97.811 Non-pressure chronic ulcer of other part of right lower leg limited to breakdown of skin; E11.51 Type 2 diabetes mellitus with diabetic peripheral angiopathy without gangrene; E11.65 Type 2 diabetes mellitus with hyperglycemia; E11.40 Type 2 diabetes mellitus with diabetic neuropathy, unspecified; E11.22 Type 2 diabetes mellitus with diabetic chronic kidney disease; I13.0 Hypertensive heart and chronic kidney disease with heart failure and stage 1 through stage 4 chronic kidney disease, or unspecified chronic kidney disease; I50.33 Acute on chronic diastolic (congestive) heart failure; N18.9 Chronic kidney disease, unspecified; I25.2 Old myocardial infarction; I25.10 Atherosclerotic heart disease of native coronary artery without angina pectoris; E78.00 Pure hypercholesterolemia, unspecified; E78.5 Hyperlipidemia, unspecified; Z89.512 Acquired absence of left leg below knee; Z89.431 Acquired absence of right foot; Z79.4 Long term (current) use of insulin; Z87.891 Personal history of nicotine dependence; Z95.5 Presence of coronary angioplasty implant and graft; Z86.73 Personal history of transient ischemic attack (TIA), and cerebral infarction without residual deficits; Y83.5 Amputation of limb(s) as the cause of abnormal reaction of the patient, or of later complication, without mention of misadventure at the time of the procedure
CPT/HCPCS: 15275; 36416; 82948; A6209; A6222; A6223; A6446; Q4106; A6250

== ENCOUNTER 2018-08-16 00:49 | Inpatient (IN) | payer MEDICARE, MEDICAID ==
[~2018-08-16] VITALS: Ht 170.2 cm; Wt 100.0 kg
[2018-08-16] MEDS ORDERED: LORazepam 2 mg/ml vial IV ONE ×2 (01:25→02:10)
[2018-08-16 02:15] LABS: BASOPHILS % (AUTO) 0.5 % (0-1); EOSINOPHILS # (AUTO) 0.3 X10'3 (0-0.9); EOSINOPHILS % (AUTO) 4.7 % (0-6); HEMATOCRIT 30.7 % (42.0-52.0); HEMOGLOBIN 10.2 g/dl (14.0-17.9); LYMPHOCYTES # (AUTO) 0.9 X10'3 (1.1-4.8); LYMPHOCYTES % (AUTO) 14.4 % (21-51); MEAN CORPUSCULAR HEMOGLOBIN 27.9 PG (27.0-31.0); MEAN CORPUSCULAR HGB CONC 33.3 % (33.0-36.5); MEAN CORPUSCULAR VOLUME 83.7 FL (78-98); MEAN PLATELET VOLUME 8.5 FL (7.4-10.4); MONOCYTES # (AUTO) 0.6 X10'3 (0-0.9); MONOCYTES % (AUTO) 9.3 % (2-12); NEUTROPHILS # (AUTO) 4.5 X10'3 (1.8-7.7); NEUTROPHILS % (AUTO) 71.1 % (42-75); PLATELET COUNT 272 X10'3 (140-440); RED BLOOD COUNT 3.67 X10'6 (4.70-6.10); RED CELL DISTRIBUTION WIDTH 14.4 % (11.5-14.5); WHITE BLOOD COUNT 6.3 X10'3 (4.5-11.0)
[2018-08-16 02:20] LABS: INR 1.1 INR; PARTIAL THROMBOPLASTIN TIME 36 SECONDS (22-32); PROTHROMBIN TIME 11.1 SECONDS (9.0-12.0)
[2018-08-16 02:24] LABS: ALANINE AMINOTRANSFERASE 26 U/L (12-78); ALBUMIN/GLOBULIN RATIO 0.9 (1.1-1.5); ALKALINE PHOSPHATASE 70 IU/L (46-116); ANION GAP 5 (8-16); ASPARTATE AMINO TRANSFERASE 21 U/L (10-37); BILIRUBIN,TOTAL 0.3 MG/DL (0.1-1.0); BLOOD UREA NITROGEN 35 MG/DL (7-18); CALCIUM 8.3 MG/DL (8.5-10.1); CHLORIDE 103 MMOL/L (99-107); GLUCOSE 114 MG/DL (70-104); POTASSIUM 4.8 MMOL/L (3.5-5.1); SODIUM 135 MMOL/L (135-145); TOTAL CARBON DIOXIDE 26.9 MMOL/L (24-32); TOTAL PROTEIN 6.4 G/DL (6.4-8.2); eGFR 51 ML/MIN
[2018-08-16] MEDS ORDERED: LOSA100T15 PO (02:31)
[2018-08-16] MEDS ORDERED: MULT-38 PO (02:31)
[2018-08-16] MEDS ORDERED: SUCR1TAB34 PO (02:31)
[2018-08-16] MEDS ORDERED: METO-292 PO (02:31)
[2018-08-16] MEDS ORDERED: POLY119P5 PO (02:31)
[2018-08-16] MEDS ORDERED: MELA3TAB PO (02:31)
[2018-08-16] MEDS ORDERED: MAGN400O6 PO (02:31)
[2018-08-16] MEDS ORDERED: SENN-161 PO (02:31)
[2018-08-16] MEDS ORDERED: MICONAZOLE (02:31)
[2018-08-16] MEDS ORDERED: CARV25TA PO (02:31)
[2018-08-16 02:33] LABS: TROPONIN I < 0.04 NG/ML (0.0-0.05)
[2018-08-16] MEDS ORDERED: LORazepam 0.5 MG tablet PO PRN (04:25)
[2018-08-16] MEDS ORDERED: normal saline 1000ml 1,000 ML IV SCH (04:28)
[2018-08-16] MEDS ORDERED: bisacodyl 10mg suppository rectal RC PRN (04:30)
[2018-08-16] MEDS ORDERED: HYDROcodone/acetaminophen 10/325mg tab PO PRN (04:30)
[2018-08-16] MEDS ORDERED: HYDROmorphone 1 mg/ml syringe IV PRN ×2 (04:30)
[2018-08-16] MEDS ORDERED: diphenhydrAMINE 25mg capsule PO PRN (04:30)
[2018-08-16] MEDS ORDERED: HYDROcodone/acetaminophen 5mg/325mg tablet PO PRN (04:30)
[2018-08-16] MEDS ORDERED: diphenhydrAMINE 50 mg/ml inj IV PRN (04:30)
[2018-08-16] MEDS ORDERED: metoclopramide 5 mg/ml inj IV PRN (04:30)
[2018-08-16] MEDS ORDERED: acetaminophen 325mg tablet PO PRN ×2 (04:30)
[2018-08-16] MEDS ORDERED: magnesium hydroxide 30ml (MOM) UD suspension PO PRN (04:30)
[2018-08-16] MEDS ORDERED: mag hydrox/Alum hydrox/simeth 30ml oral suspension PO PRN (04:30)
[2018-08-16] MEDS ORDERED: ondansetron/PF 4mg/2ml inj IV PRN (04:30)
[2018-08-16] MEDS ORDERED: acetaminophen 650mg rectal suppository RC PRN (04:30)
[2018-08-16] MEDS: atorvastatin 20mg tablet PO SCH ×2 (04:58→08:38)
[2018-08-16 05:17] LABS: HEMOGLOBIN A1C 6.6 % (4.5-6.2)
[2018-08-16 05:24] LABS: MAGNESIUM 2.5 MG/DL (1.5-2.4); PHOSPHORUS 3.8 MG/DL (2.3-4.5)
[2018-08-16 07:21] VITALS: BP 166/89
[2018-08-16] MEDS ORDERED: metoprolol tartrate 25mg tablet PO SCH (08:00)
[2018-08-16] MEDS ORDERED: aspirin 81mg tablet.DR PO SCH (08:00)
[2018-08-16] MEDS ORDERED: docusate sod 100mg capsule PO SCH ×2 (08:00→20:00)
[2018-08-16] MEDS ORDERED: Melatonin 3mg tablet PO SCH (08:00)
[2018-08-16] MEDS ORDERED: sertraline 50mg tablet PO SCH (08:00)
[2018-08-16] MEDS ORDERED: rivaroxaban 20mg tablet PO SCH (08:00)
[2018-08-16] MEDS ORDERED: losartan 50mg tablet PO SCH (08:00)
[2018-08-16] MEDS ORDERED: non-formulary drug (Carvedilol (Coreg) 1 TAB) PO SCH (08:00)
[2018-08-16] MEDS: sucralfate 1 gm tablet PO SCH ×2 (08:38→12:02)
[2018-08-16] MEDS ORDERED: nitroGLYCERIN 0.4mg SUBLingual tab SL PRN (09:50)
[2018-08-16] MEDS ORDERED: MESSAGE TO PHARMACY PO ONE (09:55)
[2018-08-16] MEDS ORDERED: magnesium Cl slow-release 64mg tablet PO PRN (09:55)
[2018-08-16] MEDS ORDERED: glucagon, human recombinant 1mg kit SUBCUT PRN (09:55)
[2018-08-16] MEDS ORDERED: potassium Cl 40MEQ/NS 500ml 500 ML IV PRN ×2 (09:55)
[2018-08-16] MEDS ORDERED: potassium Cl 20 mEq SR tablet PO PRN ×2 (09:55)
[2018-08-16] MEDS ORDERED: dextrose ORAL solution 15 GM/59 ML bottle PO PRN ×2 (09:55)
[2018-08-16] MEDS ORDERED: insulin Lispro (HumaLOG) vial - multi-dose SQ SCH (09:55)
[2018-08-16] MEDS ORDERED: magnesium 1gm/100ml D5W IVPB 100 ML IV PRN (09:55)
[2018-08-16] MEDS ORDERED: magnesium 4gm in 100ml NS 100 ML IV PRN (09:55)
[2018-08-16] MEDS ORDERED: dextrose 50%-water 50ml dispensing syringe IV PRN ×2 (09:55)
[2018-08-16 10:00] VITALS: BP 150/71
[2018-08-16] MEDS ORDERED: polyethylene glycol 3350 17gm powd pack PO SCH (11:00)
[2018-08-16] MEDS ORDERED: LORazepam 2 mg/ml vial IM ONE (11:50)
[2018-08-16 14:51] VITALS: BP 127/62
[2018-08-16] MEDS ORDERED: insulin glargine (Lantus) pen - multi-dose SQ SCH (21:00)
[2018-08-16] MEDS ORDERED: temazepam 15mg capsule PO PRN (21:00)
[2018-08-17] MEDS ORDERED: magnesium hydroxide 30ml (MOM) UD suspension PO SCH (08:00)
[2018-08-17] MEDS ORDERED: sennosides 8.6mg tablet PO SCH (08:00)
[2018-08-17] MEDS ORDERED: multivitamins, therapeutics tablet PO SCH (08:00)
== END 2018-08-16 18:00 | disposition left against medical advice (07) | DRG 65 ==
LOC: ER 00:50 → ED HOLD 04:28 → EDBEDREQ 06:22 → ORTHO 4S 07:15
PROVIDERS: ADMIT Family Medicine; ATTEND Family Medicine
DX: I63.9 Cerebral infarction, unspecified (principal); N17.9 Acute kidney failure, unspecified; G81.94 Hemiplegia, unspecified affecting left nondominant side; E11.51 Type 2 diabetes mellitus with diabetic peripheral angiopathy without gangrene; E78.00 Pure hypercholesterolemia, unspecified; I11.0 Hypertensive heart disease with heart failure; I25.10 Atherosclerotic heart disease of native coronary artery without angina pectoris; E11.65 Type 2 diabetes mellitus with hyperglycemia; I50.9 Heart failure, unspecified; Z53.21 Procedure and treatment not carried out due to patient leaving prior to being seen by health care provider; Z53.20 Procedure and treatment not carried out because of patient's decision for unspecified reasons; I25.2 Old myocardial infarction; Z89.512 Acquired absence of left leg below knee; Z88.5 Allergy status to narcotic agent; Z79.899 Other long term (current) drug therapy; Z86.73 Personal history of transient ischemic attack (TIA), and cerebral infarction without residual deficits; Z80.0 Family history of malignant neoplasm of digestive organs; Z83.3 Family history of diabetes mellitus
CPT/HCPCS: 36415; 70450; 71045; 76937; 80053; 82948; 83036; 83735; 83880; 84100; 84132; 84484; 85025; 85610; 85651; 85730; 87070; 93880; 96374; 96375; 99285; A6446; A6449; J1815; J2060; J7030; J8597

== ENCOUNTER 2018-08-22 09:22 | Day surgery (SDC) | payer MEDICARE, MEDICAID ==
[~2018-08-22 09:22] MED LIST changes: -ASPI-41 PO; +CARV25TA PO; -ENOX80DI10 SUBCUT; +LOSA100T15 PO; +MAGN400O6 PO; +MELA3TAB PO; +METO-292 PO; +MICONAZOLE; +MULT-38 PO; +POLY119P5 PO; +SENN-161 PO; -SERT25TA5 PO; +SUCR1TAB34 PO
[2018-08-22] MEDS ORDERED: LIDOcaine/PRILOcaine 5gm cream TP ONE (09:52)
== END 2018-08-22 11:38 | disposition home or self-care (01) ==
LOC: WOUND CARE 09:22
PROVIDERS: ATTEND Surgery
DX: T87.89 Other complications of amputation stump (principal); E11.621 Type 2 diabetes mellitus with foot ulcer; L97.512 Non-pressure chronic ulcer of other part of right foot with fat layer exposed; L89.613 Pressure ulcer of right heel, stage 3; L97.411 Non-pressure chronic ulcer of right heel and midfoot limited to breakdown of skin; E11.622 Type 2 diabetes mellitus with other skin ulcer; L97.811 Non-pressure chronic ulcer of other part of right lower leg limited to breakdown of skin; E11.51 Type 2 diabetes mellitus with diabetic peripheral angiopathy without gangrene; E11.65 Type 2 diabetes mellitus with hyperglycemia; E11.40 Type 2 diabetes mellitus with diabetic neuropathy, unspecified; E11.22 Type 2 diabetes mellitus with diabetic chronic kidney disease; I13.0 Hypertensive heart and chronic kidney disease with heart failure and stage 1 through stage 4 chronic kidney disease, or unspecified chronic kidney disease; I50.33 Acute on chronic diastolic (congestive) heart failure; N18.9 Chronic kidney disease, unspecified; I25.2 Old myocardial infarction; I25.10 Atherosclerotic heart disease of native coronary artery without angina pectoris; E78.00 Pure hypercholesterolemia, unspecified; E78.5 Hyperlipidemia, unspecified; Z89.512 Acquired absence of left leg below knee; Z89.431 Acquired absence of right foot; Z79.4 Long term (current) use of insulin; Z87.891 Personal history of nicotine dependence; Z95.5 Presence of coronary angioplasty implant and graft; Z86.73 Personal history of transient ischemic attack (TIA), and cerebral infarction without residual deficits; Y83.5 Amputation of limb(s) as the cause of abnormal reaction of the patient, or of later complication, without mention of misadventure at the time of the procedure
CPT/HCPCS: 11042; 36416; 82948; A6021; A6206; A6209; A6213; A6223

== ENCOUNTER 2018-08-29 09:38 | Day surgery (SDC) | payer MEDICARE, MEDICAID ==
[~2018-08-29 09:38] MED LIST changes: +HYDR-4383 PO; -HYDR-569 PO
[2018-08-29] MEDS ORDERED: LIDOcaine/PRILOcaine 5gm cream TP ONE (11:12)
== END 2018-08-29 12:02 | disposition home or self-care (01) ==
LOC: WOUND CARE 09:38
PROVIDERS: ATTEND Surgery
DX: T87.89 Other complications of amputation stump (principal); E11.621 Type 2 diabetes mellitus with foot ulcer; L97.512 Non-pressure chronic ulcer of other part of right foot with fat layer exposed; L89.613 Pressure ulcer of right heel, stage 3; L97.411 Non-pressure chronic ulcer of right heel and midfoot limited to breakdown of skin; E11.622 Type 2 diabetes mellitus with other skin ulcer; L97.811 Non-pressure chronic ulcer of other part of right lower leg limited to breakdown of skin; E11.51 Type 2 diabetes mellitus with diabetic peripheral angiopathy without gangrene; E11.65 Type 2 diabetes mellitus with hyperglycemia; E11.40 Type 2 diabetes mellitus with diabetic neuropathy, unspecified; E11.22 Type 2 diabetes mellitus with diabetic chronic kidney disease; I13.0 Hypertensive heart and chronic kidney disease with heart failure and stage 1 through stage 4 chronic kidney disease, or unspecified chronic kidney disease; I50.33 Acute on chronic diastolic (congestive) heart failure; N18.9 Chronic kidney disease, unspecified; I25.2 Old myocardial infarction; I25.10 Atherosclerotic heart disease of native coronary artery without angina pectoris; E78.00 Pure hypercholesterolemia, unspecified; E78.5 Hyperlipidemia, unspecified; Z89.512 Acquired absence of left leg below knee; Z89.431 Acquired absence of right foot; Z79.4 Long term (current) use of insulin; Z87.891 Personal history of nicotine dependence; Z95.5 Presence of coronary angioplasty implant and graft; Z86.73 Personal history of transient ischemic attack (TIA), and cerebral infarction without residual deficits; Y83.5 Amputation of limb(s) as the cause of abnormal reaction of the patient, or of later complication, without mention of misadventure at the time of the procedure
CPT/HCPCS: 11042; 36416; 82948; 97597; A6021; A6206; A6223; A6446

== ENCOUNTER 2018-09-02 19:33 | Emergency (ER) | payer MEDICARE, MEDICAID ==
[~2018-09-02] VITALS: Ht 170.2 cm; Wt 102.3 kg
[2018-09-02] MEDS ORDERED: tranexamic acid 100mg/ml inj. TP ONE ×2 (19:55→21:00)
[2018-09-02 21:32] VITALS: BP 133/72
== END 2018-09-02 22:56 | disposition home or self-care (01) ==
LOC: ER 19:34
DX: L76.22 Postprocedural hemorrhage of skin and subcutaneous tissue following other procedure (principal); I10 Essential (primary) hypertension; E11.9 Type 2 diabetes mellitus without complications; I25.10 Atherosclerotic heart disease of native coronary artery without angina pectoris; E78.00 Pure hypercholesterolemia, unspecified; Z86.73 Personal history of transient ischemic attack (TIA), and cerebral infarction without residual deficits; Z88.5 Allergy status to narcotic agent; Z79.4 Long term (current) use of insulin; Z79.899 Other long term (current) drug therapy
CPT/HCPCS: 93005; 99284

== ENCOUNTER 2018-09-05 09:50 | Day surgery (SDC) | payer MEDICARE, MEDICAID ==
[2018-09-06] MEDS ORDERED: PRED5TAB PO (11:28)
[2018-09-06] MEDS ORDERED: ESCI10TA54 PO (11:28)
[2018-09-06] MEDS ORDERED: PRED10TA23 PO (11:28)
[2018-09-06] MEDS ORDERED: CLOP75TA18 PO (11:28)
[2018-09-06] MEDS ORDERED: ASPI-1264 PO (11:28)
[2018-09-06] MEDS ORDERED: FURO40TA4 PO ×2 (11:28)
[2018-09-06] MEDS ORDERED: AMLO5TAB PO (11:28)
[2018-09-06] MEDS ORDERED: ACET-2119 PO (11:28)
[2018-09-06] MEDS ORDERED: DULR RC (11:28)
[2018-09-06] MEDS ORDERED: ONDA4TAB9 SL (11:28)
[2018-09-06] MEDS ORDERED: NA P133E4 RC (11:28)
[2018-09-06] MEDS ORDERED: IPRA3AMP31 IH (11:28)
== END 2018-09-05 11:46 | disposition home or self-care (01) ==
LOC: WOUND CARE 09:50
PROVIDERS: ATTEND Surgery
DX: T87.89 Other complications of amputation stump (principal); E11.621 Type 2 diabetes mellitus with foot ulcer; L97.512 Non-pressure chronic ulcer of other part of right foot with fat layer exposed; L89.613 Pressure ulcer of right heel, stage 3; L97.411 Non-pressure chronic ulcer of right heel and midfoot limited to breakdown of skin; E11.622 Type 2 diabetes mellitus with other skin ulcer; L97.811 Non-pressure chronic ulcer of other part of right lower leg limited to breakdown of skin; E11.51 Type 2 diabetes mellitus with diabetic peripheral angiopathy without gangrene; E11.65 Type 2 diabetes mellitus with hyperglycemia; E11.40 Type 2 diabetes mellitus with diabetic neuropathy, unspecified; E11.22 Type 2 diabetes mellitus with diabetic chronic kidney disease; I13.0 Hypertensive heart and chronic kidney disease with heart failure and stage 1 through stage 4 chronic kidney disease, or unspecified chronic kidney disease; I50.33 Acute on chronic diastolic (congestive) heart failure; N18.9 Chronic kidney disease, unspecified; I25.2 Old myocardial infarction; I25.10 Atherosclerotic heart disease of native coronary artery without angina pectoris; E78.00 Pure hypercholesterolemia, unspecified; E78.5 Hyperlipidemia, unspecified; Z89.512 Acquired absence of left leg below knee; Z89.431 Acquired absence of right foot; Z79.4 Long term (current) use of insulin; Z87.891 Personal history of nicotine dependence; Z95.5 Presence of coronary angioplasty implant and graft; Z86.73 Personal history of transient ischemic attack (TIA), and cerebral infarction without residual deficits; Y83.5 Amputation of limb(s) as the cause of abnormal reaction of the patient, or of later complication, without mention of misadventure at the time of the procedure
CPT/HCPCS: 11042; 36416; 82948; 97597; A6021; A6206; A6209; A6223; A6446

== ENCOUNTER 2018-09-06 09:16 | Inpatient (IN) | payer MEDICARE, MEDICAID ==
[~2018-09-06] VITALS: Ht 182.9 cm; Wt 86.0 kg
[2018-09-06] VITALS (11 sets, daily range): BP systolic 94–113; BP diastolic 56–66
[~2018-09-06 09:16] MED LIST changes: +etomidate 2mg/ml inj. ONE; +rocuronium 10mg/ml inj IV ONE
[2018-09-06] MEDS ORDERED: midazolam 100mg in NS 100ml 100 ML IV PRN (09:25)
[2018-09-06] MEDS ORDERED: FENTANYL-0.9 % NACL/PF 100 ML IV PRN ×2 (09:25→09:35)
[2018-09-06] MEDS ORDERED: succinylcholine 20mg/ml inj IV ONE ×2 (09:27→09:35)
[2018-09-06] MEDS ORDERED: etomidate 2mg/ml inj. IV ONE (09:35)
[2018-09-06] MEDS ORDERED: midazolam 100mg in NS 100ml 100 ML IV SCH (09:35)
[2018-09-06 09:56] LABS: BASOPHILS % (AUTO) 0 % (0-1); EOSINOPHILS % (AUTO) 0 % (0-6); HEMATOCRIT 27.1 % (42.0-52.0); HEMOGLOBIN 8.9 g/dl (14.0-17.9); LYMPHOCYTES # (AUTO) 0.6 X10'3 (1.1-4.8); LYMPHOCYTES % (AUTO) 5.1 % (21-51); MEAN CORPUSCULAR HEMOGLOBIN 27.4 PG (27.0-31.0); MEAN CORPUSCULAR VOLUME 82.9 FL (78-98); MEAN PLATELET VOLUME 8.7 FL (7.4-10.4); MONOCYTES # (AUTO) 0.5 X10'3 (0-0.9); NEUTROPHILS # (AUTO) 11.3 X10'3 (1.8-7.7); NEUTROPHILS % (AUTO) 90.9 % (42-75); PLATELET COUNT 352 X10'3 (140-440); RED BLOOD COUNT 3.27 X10'6 (4.70-6.10); RED CELL DISTRIBUTION WIDTH 13.6 % (11.5-14.5); WHITE BLOOD COUNT 12.4 X10'3 (4.5-11.0)
[2018-09-06 10:16] LABS: ALANINE AMINOTRANSFERASE 27 U/L (12-78); ALBUMIN 3.1 G/DL (3.4-5.0); ALBUMIN/GLOBULIN RATIO 0.8 (1.1-1.5); ALKALINE PHOSPHATASE 86 IU/L (46-116); ANION GAP 8 (8-16); ASPARTATE AMINO TRANSFERASE 22 U/L (10-37); BILIRUBIN,TOTAL 0.3 MG/DL (0.1-1.0); BLOOD UREA NITROGEN 80 MG/DL (7-18); BUN/CREATININE RATIO 35.2 (5.4-32.0); CALCIUM 8.2 MG/DL (8.5-10.1); CHLORIDE 99 MMOL/L (99-107); CREATININE 2.27 MG/DL (0.60-1.10); GLUCOSE 186 MG/DL (70-104); INR 1.1 INR; PARTIAL THROMBOPLASTIN TIME 33 SECONDS (22-32); PROTHROMBIN TIME 11.8 SECONDS (9.0-12.0); SODIUM 131 MMOL/L (135-145); TOTAL CARBON DIOXIDE 24.5 MMOL/L (24-32); TOTAL PROTEIN 6.8 G/DL (6.4-8.2); TROPONIN I < 0.04 NG/ML (0.0-0.05); eGFR 29 ML/MIN
[2018-09-06 10:20] LABS: POTASSIUM 7.5 MMOL/L (3.5-5.1)
[2018-09-06] MEDS ORDERED: calcium gluconate inj. 1 GM in normal saline 100ml IV soln 100 ML IV ONE (10:20)
[2018-09-06] MEDS ORDERED: dextrose 50%-water 50ml dispensing syringe IV ONE (10:20)
[2018-09-06] MEDS ORDERED: insulin regular, human 10 units/0.1 ml syringe IV ONE (10:20)
[2018-09-06] MEDS ORDERED: sodium polystyrene sulfonate 15gm/60ml oral suspension PR ONE (10:25)
[2018-09-06 10:29] LABS: ETHANOL < 0.010 GM/DL (0.0-0.010)
[2018-09-06] MEDS: levoFLOXACIN-Levaquin 750MG/D5 150 ML IV ONE ×2 (10:35→11:34)
[2018-09-06 10:56] LABS: ABG BASE EXCESS -3.2 mmol/L (-2.0-3.0); ABG HCO3 22.6 mmol/L (22.0-26.0); ABG OXYGEN SATURATION 96.2 % (95-98); ABG PCO2 (T) 44.2 mmHg (35.0-48.0); ABG PH (T) 7.327 (7.350-7.450); ABG PO2 (T) 97.9 mmHg (83-108); ALLEN'S TEST Positive; FCOHb 0.2 % (0.5-1.5); FMetHb 0.1 % (0.3-1.12); FO2Hb 95.9 % (94-100); MINUTE VOLUME 6 L/min; PEEP 5 cm H2O; RESPIRATORY RATE 12 b/min; RESPIRATORY RATE (OBSERVED) 16 b/min; TIDAL VOLUME 400 mL
[2018-09-06 11:06] LABS: CLARITY,URINE CLOUDY (Clear); COLOR,URINE YELLOW (Yellow); GLUCOSE, URINE NEGATIVE (Neg); KETONES,URINE TRACE mg/dl (Neg); LEUKOCYTE ESTERASE ,URINE NEGATIVE (Neg); NITRITES, URINE NEGATIVE (Neg); OCCULT BLOOD,URINE NEGATIVE (Neg); PH,URINE 5.5 (4.8-8.0); PROTEIN,URINE 30 mg/dl (Neg); UROBILINOGEN,URINE 0.2 E.U/dL (0.2-1.0)
[2018-09-06 11:09] LABS: UA COLLECTION TYPE FOLEY CATH
[2018-09-06 11:12] LABS: HYALINE CASTS >30 /LPF (NEGATIVE); MUCUS STRANDS FEW /LPF (Neg); SQUAMOUS EPITHELIAL CELL,UR FEW /LPF (FEW)
[2018-09-06 11:14] LABS: AMORPHOUS URATES 2+; BACTERIA,URINE FEW /HPF (Neg); RBC,URINE 0-2 /HPF (0-2); WBC,URINE 0-4 /HPF (0-4)
[2018-09-06 11:20] LABS: URINE AMPHETAMINE SCREEN NEGATIVE (Neg); URINE BARBITUATE SCREEN NEGATIVE (Neg); URINE BENZODIAZEPINES SCREEN NEGATIVE (Neg); URINE CANNABINOID SCREEN NEGATIVE (Neg); URINE COCAINE SCREEN NEGATIVE (Neg); URINE METHADONE SCREEN NEGATIVE (Neg); URINE OPIATE SCREEN POSITIVE (Neg); URINE PHENCYCLIDINE SCREEN NEGATIVE (Neg)
[2018-09-06 11:27] LABS: ALBUMIN 2.7 G/DL (3.4-5.0); ANION GAP 7 (8-16); BLOOD UREA NITROGEN 81 MG/DL (7-18); BUN/CREATININE RATIO 35.5 (5.4-32.0); CALCIUM 7.8 MG/DL (8.5-10.1); CHLORIDE 100 MMOL/L (99-107); CREATININE 2.28 MG/DL (0.60-1.10); GLUCOSE 209 MG/DL (70-104); MAGNESIUM 3.7 MG/DL (1.5-2.4); SODIUM 133 MMOL/L (135-145); TOTAL CARBON DIOXIDE 26.4 MMOL/L (24-32); eGFR 29 ML/MIN
[2018-09-06 11:28] LABS: POTASSIUM 6.6 MMOL/L (3.5-5.1)
[2018-09-06] MEDS ORDERED: PRED10TA23 PO (11:28)
[2018-09-06] MEDS ORDERED: ONDA4TAB9 SL (11:28)
[2018-09-06] MEDS ORDERED: ESCI10TA54 PO (11:28)
[2018-09-06] MEDS ORDERED: NA P133E4 RC (11:28)
[2018-09-06] MEDS ORDERED: DULR RC (11:28)
[2018-09-06] MEDS ORDERED: ASPI-1264 PO (11:28)
[2018-09-06] MEDS ORDERED: FURO40TA4 PO ×2 (11:28)
[2018-09-06] MEDS ORDERED: AMLO5TAB PO (11:28)
[2018-09-06] MEDS ORDERED: PRED5TAB PO (11:28)
[2018-09-06] MEDS ORDERED: ACET-2119 PO (11:28)
[2018-09-06] MEDS ORDERED: IPRA3AMP31 IH (11:28)
[2018-09-06] MEDS ORDERED: CLOP75TA18 PO (11:28)
[2018-09-06] MEDS ORDERED: acetaminophen 325mg tablet PO PRN ×3 (11:50→12:05)
[2018-09-06] MEDS ORDERED: vancomycin/NS 1 GM ADD-VANTAGE 250 ML IV ONE (11:50)
[2018-09-06] MEDS ORDERED: ipratropium/albuterol 3ml nebule NEB PRN (11:50)
[2018-09-06] MEDS ORDERED: sodium polystyrene sulfonate 15gm/60ml oral suspension PO ONE ×3 (11:50→20:35)
[2018-09-06] MEDS ORDERED: midazolam 2 mg/2 ml injection IV ONE (11:50)
[2018-09-06] MEDS: piperacillin-tazo 2.25gm/50ml 50 ML IV SCH ×4 (11:50→19:50)
[2018-09-06] MEDS ORDERED: fentaNYL/PF 50MCG/1 ML 2ML syringe IV PRN (11:50)
[2018-09-06] MEDS ORDERED: calcium chloride 100 MG/1 ML inj IV ONE (11:50)
[2018-09-06] MEDS ORDERED: bisacodyl 10mg suppository rectal RC PRN (12:05)
[2018-09-06] MEDS: normal saline 1000ml 1,000 ML IV SCH ×2 (13:41→19:48)
[2018-09-06] MEDS ORDERED: dextrose 50%-water 50ml dispensing syringe IV PRN ×2 (13:50)
[2018-09-06] MEDS ORDERED: glucagon, human recombinant 1mg kit SUBCUT PRN (13:50)
[2018-09-06] MEDS ORDERED: dextrose ORAL solution 15 GM/59 ML bottle PO PRN ×2 (13:50)
[2018-09-06] MEDS ORDERED: MESSAGE TO PHARMACY PO ONE (13:50)
[2018-09-06] MEDS: hydrocortisone sod succ/PF 100mg/2ml inj. IV SCH ×2 (15:39→19:49)
[2018-09-06] MEDS: ipratropium/albuterol 3ml nebule NEB SCH ×3 (15:44→22:32)
[2018-09-06] MEDS: insulin Lispro (HumaLOG) vial - multi-dose SQ SCH (17:00)
[2018-09-06] MEDS: FENTANYL-0.9 % NACL/PF 100 ML IV PRN (17:44)
[2018-09-06] MEDS: famotidine/PF 10 mg/ml inj IV SCH (19:50)
[2018-09-06] MEDS ORDERED: docusate sod 100mg capsule PO SCH ×2 (20:00)
[2018-09-06 20:19] LABS: ALBUMIN 2.5 G/DL (3.4-5.0); BLOOD UREA NITROGEN 75 MG/DL (7-18); BUN/CREATININE RATIO 37.3 (5.4-32.0); CALCIUM 8.2 MG/DL (8.5-10.1); CREATININE 2.01 MG/DL (0.60-1.10); GLUCOSE 131 MG/DL (70-104); TOTAL CARBON DIOXIDE 25.8 MMOL/L (24-32); eGFR 34 ML/MIN
[2018-09-06 20:26] LABS: ANION GAP 7 (8-16); CHLORIDE 102 MMOL/L (99-107); SODIUM 135 MMOL/L (135-145)
[2018-09-06 20:29] LABS: POTASSIUM 6.3 MMOL/L (3.5-5.1)
[2018-09-06] MEDS: insulin glargine (Lantus) pen - multi-dose SQ SCH ×2 (21:00)
[2018-09-06] MEDS: midazolam 100mg in NS 100ml 100 ML IV PRN (22:55)
[2018-09-07] VITALS (24 sets, daily range): BP systolic 116–144; BP diastolic 65–78
[2018-09-07] MEDS: normal saline 1000ml 1,000 ML IV SCH ×4 (01:07→21:33)
[2018-09-07] MEDS: piperacillin-tazo 2.25gm/50ml 50 ML IV SCH ×4 (01:10→20:07)
[2018-09-07] MEDS: hydrocortisone sod succ/PF 100mg/2ml inj. IV SCH ×4 (01:10→20:07)
[2018-09-07] MEDS: ipratropium/albuterol 3ml nebule NEB SCH ×6 (02:23→22:37)
[2018-09-07 03:21] LABS: BASOPHILS % (AUTO) 0.1 % (0-1); EOSINOPHILS % (AUTO) 0.1 % (0-6); HEMATOCRIT 23.7 % (42.0-52.0); HEMOGLOBIN 8.1 g/dl (14.0-17.9); LYMPHOCYTES # (AUTO) 0.3 X10'3 (1.1-4.8); LYMPHOCYTES % (AUTO) 3.1 % (21-51); MEAN CORPUSCULAR HEMOGLOBIN 28.5 PG (27.0-31.0); MEAN CORPUSCULAR HGB CONC 34.3 % (33.0-36.5); MEAN PLATELET VOLUME 8.7 FL (7.4-10.4); MONOCYTES # (AUTO) 0.4 X10'3 (0-0.9); MONOCYTES % (AUTO) 4.8 % (2-12); NEUTROPHILS # (AUTO) 7.9 X10'3 (1.8-7.7); NEUTROPHILS % (AUTO) 91.9 % (42-75); PLATELET COUNT 270 X10'3 (140-440); RED BLOOD COUNT 2.85 X10'6 (4.70-6.10); RED CELL DISTRIBUTION WIDTH 13.6 % (11.5-14.5); WHITE BLOOD COUNT 8.6 X10'3 (4.5-11.0)
[2018-09-07 03:30] LABS: ALANINE AMINOTRANSFERASE 22 U/L (12-78); ALBUMIN 2.4 G/DL (3.4-5.0); ALBUMIN/GLOBULIN RATIO 0.8 (1.1-1.5); ALKALINE PHOSPHATASE 68 IU/L (46-116); ANION GAP 6 (8-16); ASPARTATE AMINO TRANSFERASE 12 U/L (10-37); BILIRUBIN,TOTAL 0.3 MG/DL (0.1-1.0); BLOOD UREA NITROGEN 74 MG/DL (7-18); CHLORIDE 103 MMOL/L (99-107); GLUCOSE 138 MG/DL (70-104); MAGNESIUM 3.4 MG/DL (1.5-2.4); PHOSPHORUS 4.7 MG/DL (2.3-4.5); SODIUM 135 MMOL/L (135-145); TOTAL PROTEIN 5.5 G/DL (6.4-8.2); eGFR 34 ML/MIN
[2018-09-07 03:41] LABS: POTASSIUM 6.1 MMOL/L (3.5-5.1)
[2018-09-07 04:15] LABS: ABG BASE EXCESS -1.9 mmol/L (-2.0-3.0); ABG HCO3 23.7 mmol/L (22.0-26.0); ABG OXYGEN SATURATION 93.5 % (95-98); ABG PCO2 (T) 43.6 mmHg (35.0-48.0); ABG PH (T) 7.351 (7.350-7.450); ABG PO2 (T) 70.6 mmHg (83-108); ALLEN'S TEST Positive; FCOHb 0.3 % (0.5-1.5); FMetHb 0.2 % (0.3-1.12); MINUTE VOLUME 7 L/min; PATIENT TEMPERATURE 36.5; PEEP 5 cm H2O; RESPIRATORY RATE 12 b/min; RESPIRATORY RATE (OBSERVED) 16 b/min; TIDAL VOLUME 400 mL; TOTAL HEMOGLOBIN 9.1 G/dl (14.0-18.0)
[2018-09-07] MEDS: FENTANYL-0.9 % NACL/PF 100 ML IV PRN (05:01)
[2018-09-07] MEDS: insulin Lispro (HumaLOG) vial - multi-dose SQ SCH ×4 (07:00→21:32)
[2018-09-07] MEDS ORDERED: non-formulary drug (Amlodipine Besylate 2 TABLET) PO SCH (08:00)
[2018-09-07] MEDS ORDERED: non-formulary drug (Multivitamin (Daily Multiple Vitamin) 1 TAB) PO SCH (08:00)
[2018-09-07] MEDS ORDERED: rivaroxaban 20mg tablet PO SCH (08:00)
[2018-09-07] MEDS: aspirin 325mg tablet PO SCH (08:31)
[2018-09-07] MEDS: famotidine/PF 10 mg/ml inj IV SCH ×2 (08:31→20:07)
[2018-09-07] MEDS: multivitamins, therapeutics tablet PO SCH (08:32)
[2018-09-07] MEDS: citalopram 20mg tablet PO SCH (08:32)
[2018-09-07] MEDS: amLODIPine 5mg tablet PO SCH (08:32)
[2018-09-07] MEDS: clopidogrel 75mg tablet PO SCH (08:33)
[2018-09-07] MEDS ORDERED: docusate sodium 100mg/10ml UD cup PO SCH (08:47)
[2018-09-07 09:40] LABS: CLARITY,URINE CLEAR (Clear); COLOR,URINE YELLOW (Yellow); GLUCOSE, URINE NEGATIVE (Neg); KETONES,URINE NEGATIVE (Neg); LEUKOCYTE ESTERASE ,URINE NEGATIVE (Neg); NITRITES, URINE NEGATIVE (Neg); OCCULT BLOOD,URINE MODERATE (Neg); PROTEIN,URINE TRACE mg/dl (Neg); UROBILINOGEN,URINE 0.2 E.U/dL (0.2-1.0)
[2018-09-07 09:48] LABS: TOTAL PROTEIN,URINE RANDOM 38.8 MG/DL
[2018-09-07 09:57] LABS: UA COLLECTION TYPE FOLEY CATH
[2018-09-07 09:58] LABS: BACTERIA,URINE FEW /HPF (Neg); MUCUS STRANDS NONE SEEN /LPF (Neg); SQUAMOUS EPITHELIAL CELL,UR FEW /LPF (FEW); WBC,URINE 0-4 /HPF (0-4)
[2018-09-07 10:11] LABS: UA EOSINOPHILS NO EOS /HPF
[2018-09-07 10:12] LABS: SODIUM,URINE RANDOM < 15 MEQ/L
[2018-09-07] MEDS ORDERED: rivaroxaban 20mg tablet OGT ONE (10:30)
[2018-09-07] MEDS: mineral oil/petrolatum ophthal oint EACHEYE SCH ×2 (13:48→20:07)
[2018-09-07] MEDS ORDERED: MIDAZolam 5mg/ml 2ml vial IV ONE ×2 (15:35→15:50)
[2018-09-07] MEDS ORDERED: MIDAZolam 5mg/ml 2ml vial IV PRN (16:05)
[2018-09-07] MEDS: docusate sodium 100mg/10ml UD cup PO SCH (20:07)
[2018-09-07] MEDS: insulin glargine (Lantus) pen - multi-dose SQ SCH ×2 (21:00→21:33)
[2018-09-08] VITALS (23 sets, daily range): BP systolic 134–174; BP diastolic 69–90
[2018-09-08] MEDS: ipratropium/albuterol 3ml nebule NEB SCH ×6 (02:33→23:06)
[2018-09-08] MEDS: piperacillin-tazo 2.25gm/50ml 50 ML IV SCH ×4 (02:35→19:37)
[2018-09-08] MEDS: mineral oil/petrolatum ophthal oint EACHEYE SCH ×4 (02:35→19:36)
[2018-09-08] MEDS: hydrocortisone sod succ/PF 100mg/2ml inj. IV SCH ×4 (02:35→19:37)
[2018-09-08] MEDS: insulin Lispro (HumaLOG) vial - multi-dose SQ SCH ×7 (02:43→19:41)
[2018-09-08 02:49] LABS: BASOPHILS % (AUTO) 0 % (0-1); EOSINOPHILS % (AUTO) 0.1 % (0-6); HEMATOCRIT 25.6 % (42.0-52.0); HEMOGLOBIN 8.6 g/dl (14.0-17.9); LYMPHOCYTES # (AUTO) 0.4 X10'3 (1.1-4.8); LYMPHOCYTES % (AUTO) 3.9 % (21-51); MEAN CORPUSCULAR HEMOGLOBIN 27.7 PG (27.0-31.0); MEAN CORPUSCULAR HGB CONC 33.8 % (33.0-36.5); MEAN CORPUSCULAR VOLUME 81.9 FL (78-98); MEAN PLATELET VOLUME 8.3 FL (7.4-10.4); MONOCYTES # (AUTO) 0.6 X10'3 (0-0.9); MONOCYTES % (AUTO) 6.6 % (2-12); NEUTROPHILS # (AUTO) 8.6 X10'3 (1.8-7.7); NEUTROPHILS % (AUTO) 89.4 % (42-75); PLATELET COUNT 293 X10'3 (140-440); RED BLOOD COUNT 3.12 X10'6 (4.70-6.10); RED CELL DISTRIBUTION WIDTH 13.8 % (11.5-14.5); WHITE BLOOD COUNT 9.6 X10'3 (4.5-11.0)
[2018-09-08 02:56] LABS: ALANINE AMINOTRANSFERASE 18 U/L (12-78); ALBUMIN 2.3 G/DL (3.4-5.0); ALBUMIN/GLOBULIN RATIO 0.7 (1.1-1.5); ALKALINE PHOSPHATASE 58 IU/L (46-116); ANION GAP 8 (8-16); ASPARTATE AMINO TRANSFERASE 10 U/L (10-37); BILIRUBIN,TOTAL 0.3 MG/DL (0.1-1.0); BLOOD UREA NITROGEN 57 MG/DL (7-18); BUN/CREATININE RATIO 31.1 (5.4-32.0); CALCIUM 7.9 MG/DL (8.5-10.1); CHLORIDE 109 MMOL/L (99-107); CREATININE 1.83 MG/DL (0.60-1.10); GLUCOSE 193 MG/DL (70-104); PHOSPHORUS 3.8 MG/DL (2.3-4.5); SODIUM 143 MMOL/L (135-145); TOTAL CARBON DIOXIDE 26.4 MMOL/L (24-32); TOTAL PROTEIN 5.4 G/DL (6.4-8.2); eGFR 38 ML/MIN
[2018-09-08 03:56] LABS: ABG BASE EXCESS -1.2 mmol/L (-2.0-3.0); ABG HCO3 23.8 mmol/L (22.0-26.0); ABG OXYGEN SATURATION 92.5 % (95-98); ABG PCO2 (T) 39.5 mmHg (35.0-48.0); ABG PH (T) 7.394 (7.350-7.450); ABG PO2 (T) 63.2 mmHg (83-108); ALLEN'S TEST Positive; FCOHb 0.3 % (0.5-1.5); FMetHb 0.2 % (0.3-1.12); MINUTE VOLUME 8 L/min; PATIENT TEMPERATURE 36.2; PEEP 5 cm H2O; RESPIRATORY RATE 12 b/min; RESPIRATORY RATE (OBSERVED) 19 b/min; TIDAL VOLUME 400 mL; TOTAL HEMOGLOBIN 9.5 G/dl (14.0-18.0)
[2018-09-08] MEDS: normal saline 1000ml 1,000 ML IV SCH ×4 (04:25→19:51)
[2018-09-08] MEDS: midazolam 100mg in NS 100ml 100 ML IV PRN (05:29)
[2018-09-08] MEDS: docusate sodium 100mg/10ml UD cup PO SCH ×2 (07:58→19:37)
[2018-09-08] MEDS: multivitamins, therapeutics tablet PO SCH (07:58)
[2018-09-08] MEDS: famotidine/PF 10 mg/ml inj IV SCH ×2 (07:58→19:37)
[2018-09-08] MEDS: citalopram 20mg tablet PO SCH (07:58)
[2018-09-08] MEDS: amLODIPine 5mg tablet PO SCH (07:58)
[2018-09-08] MEDS: aspirin 325mg tablet PO SCH (07:58)
[2018-09-08] MEDS: clopidogrel 75mg tablet PO SCH (08:00)
[2018-09-08] MEDS: rivaroxaban 20mg tablet OGT SCH (08:00)
[2018-09-08] MEDS: FENTANYL-0.9 % NACL/PF 100 ML IV PRN (11:12)
[2018-09-08] MEDS: insulin glargine (Lantus) pen - multi-dose SQ SCH ×2 (19:37→19:43)
[2018-09-09] VITALS (24 sets, daily range): BP systolic 150–170; BP diastolic 72–89
[2018-09-09] MEDS: mineral oil/petrolatum ophthal oint EACHEYE SCH ×4 (02:27→20:40)
[2018-09-09] MEDS: piperacillin-tazo 2.25gm/50ml 50 ML IV SCH ×4 (02:27→20:39)
[2018-09-09] MEDS: hydrocortisone sod succ/PF 100mg/2ml inj. IV SCH ×4 (02:27→20:39)
[2018-09-09] MEDS: FENTANYL-0.9 % NACL/PF 100 ML IV PRN ×3 (02:27→21:45)
[2018-09-09] MEDS: midazolam 100mg in NS 100ml 100 ML IV PRN ×2 (02:27→20:39)
[2018-09-09] MEDS: insulin Lispro (HumaLOG) vial - multi-dose SQ SCH ×6 (02:34→22:02)
[2018-09-09 02:40] LABS: BASOPHILS % (AUTO) 0 % (0-1); EOSINOPHILS # (AUTO) 0.1 X10'3 (0-0.9); EOSINOPHILS % (AUTO) 1.6 % (0-6); LYMPHOCYTES # (AUTO) 0.3 X10'3 (1.1-4.8); LYMPHOCYTES % (AUTO) 4.1 % (21-51); MEAN CORPUSCULAR HEMOGLOBIN 26.6 PG (27.0-31.0); MEAN CORPUSCULAR HGB CONC 32.1 % (33.0-36.5); MEAN CORPUSCULAR VOLUME 82.8 FL (78-98); MEAN PLATELET VOLUME 7.6 FL (7.4-10.4); MONOCYTES # (AUTO) 0.6 X10'3 (0-0.9); MONOCYTES % (AUTO) 7.1 % (2-12); NEUTROPHILS # (AUTO) 7.1 X10'3 (1.8-7.7); NEUTROPHILS % (AUTO) 87.2 % (42-75); PLATELET COUNT 328 X10'3 (140-440); RED BLOOD COUNT 3.38 X10'6 (4.70-6.10); WHITE BLOOD COUNT 8.2 X10'3 (4.5-11.0)
[2018-09-09 02:52] LABS: ALANINE AMINOTRANSFERASE 22 U/L (12-78); ALBUMIN 2.2 G/DL (3.4-5.0); ALBUMIN/GLOBULIN RATIO 0.7 (1.1-1.5); ALKALINE PHOSPHATASE 59 IU/L (46-116); ANION GAP 7 (8-16); ASPARTATE AMINO TRANSFERASE 15 U/L (10-37); BILIRUBIN,TOTAL 0.4 MG/DL (0.1-1.0); BLOOD UREA NITROGEN 39 MG/DL (7-18); BUN/CREATININE RATIO 32.8 (5.4-32.0); CALCIUM 7.5 MG/DL (8.5-10.1); CHLORIDE 113 MMOL/L (99-107); CREATININE 1.19 MG/DL (0.60-1.10); GLUCOSE 187 MG/DL (70-104); MAGNESIUM 2.7 MG/DL (1.5-2.4); PHOSPHORUS 2.6 MG/DL (2.3-4.5); POTASSIUM 3.2 MMOL/L (3.5-5.1); SODIUM 148 MMOL/L (135-145); TOTAL CARBON DIOXIDE 28.5 MMOL/L (24-32); TOTAL PROTEIN 5.4 G/DL (6.4-8.2); eGFR 62 ML/MIN
[2018-09-09] MEDS: ipratropium/albuterol 3ml nebule NEB SCH ×6 (03:04→23:02)
[2018-09-09 03:10] LABS: ABG BASE EXCESS -1.1 mmol/L (-2.0-3.0); ABG HCO3 23.5 mmol/L (22.0-26.0); ABG OXYGEN SATURATION 94.1 % (95-98); ABG PCO2 (T) 38.7 mmHg (35.0-48.0); ABG PH (T) 7.401 (7.350-7.450); ABG PO2 (T) 72.6 mmHg (83-108); ALLEN'S TEST Positive; FCOHb 0.3 % (0.5-1.5); FMetHb 0.2 % (0.3-1.12); FO2Hb 93.6 % (94-100); MINUTE VOLUME 9 L/min; PATIENT TEMPERATURE 36.8; PEEP 5 cm H2O; RESPIRATORY RATE 12 b/min; RESPIRATORY RATE (OBSERVED) 16 b/min; TOTAL HEMOGLOBIN 10.9 G/dl (14.0-18.0)
[2018-09-09] MEDS: normal saline 1000ml 1,000 ML IV SCH ×3 (04:07→19:48)
[2018-09-09] MEDS: aspirin 325mg tablet PO SCH (07:34)
[2018-09-09] MEDS: citalopram 20mg tablet PO SCH (07:35)
[2018-09-09] MEDS: multivitamins, therapeutics tablet PO SCH (07:35)
[2018-09-09] MEDS: docusate sodium 100mg/10ml UD cup PO SCH ×2 (07:35→20:39)
[2018-09-09] MEDS: amLODIPine 5mg tablet PO SCH (07:35)
[2018-09-09] MEDS: famotidine/PF 10 mg/ml inj IV SCH ×2 (07:37→20:39)
[2018-09-09] MEDS: potassium cl 20mEq in 1/2 NS 1,000 ML IV SCH ×2 (11:07→20:39)
[2018-09-09] MEDS: clopidogrel 75mg tablet PO SCH (11:28)
[2018-09-09] MEDS: rivaroxaban 20mg tablet OGT SCH (11:28)
[2018-09-09] MEDS ORDERED: insulin regular, human vial - multi-dose SQ SCH (15:11)
[2018-09-09] MEDS: insulin glargine (Lantus) pen - multi-dose SQ SCH ×2 (21:00→21:24)
[2018-09-10] VITALS (24 sets, daily range): BP systolic 160–194; BP diastolic 76–107
[2018-09-10] MEDS: normal saline 1000ml 1,000 ML IV SCH (01:31)
[2018-09-10] MEDS: mineral oil/petrolatum ophthal oint EACHEYE SCH ×4 (02:35→20:20)
[2018-09-10] MEDS: hydrocortisone sod succ/PF 100mg/2ml inj. IV SCH ×4 (02:36→20:19)
[2018-09-10] MEDS: piperacillin-tazo 2.25gm/50ml 50 ML IV SCH ×4 (02:36→20:20)
[2018-09-10] MEDS: insulin Lispro (HumaLOG) vial - multi-dose SQ SCH ×2 (02:38→09:20)
[2018-09-10 02:43] LABS: BASOPHILS % (AUTO) 0 % (0-1); EOSINOPHILS # (AUTO) 0.1 X10'3 (0-0.9); EOSINOPHILS % (AUTO) 1.2 % (0-6); HEMATOCRIT 29.4 % (42.0-52.0); HEMOGLOBIN 9.5 g/dl (14.0-17.9); LYMPHOCYTES # (AUTO) 0.3 X10'3 (1.1-4.8); LYMPHOCYTES % (AUTO) 3.5 % (21-51); MEAN CORPUSCULAR HEMOGLOBIN 26.6 PG (27.0-31.0); MEAN CORPUSCULAR HGB CONC 32.2 % (33.0-36.5); MEAN CORPUSCULAR VOLUME 82.6 FL (78-98); MEAN PLATELET VOLUME 7.3 FL (7.4-10.4); MONOCYTES # (AUTO) 0.6 X10'3 (0-0.9); NEUTROPHILS # (AUTO) 8.9 X10'3 (1.8-7.7); NEUTROPHILS % (AUTO) 89.3 % (42-75); PLATELET COUNT 340 X10'3 (140-440); RED BLOOD COUNT 3.57 X10'6 (4.70-6.10); RED CELL DISTRIBUTION WIDTH 14.7 % (11.5-14.5)
[2018-09-10] MEDS: ipratropium/albuterol 3ml nebule NEB SCH ×6 (03:00→22:26)
[2018-09-10 03:06] LABS: ALANINE AMINOTRANSFERASE 89 U/L (12-78); ALBUMIN 2.1 G/DL (3.4-5.0); ALBUMIN/GLOBULIN RATIO 0.7 (1.1-1.5); ALKALINE PHOSPHATASE 58 IU/L (46-116); ANION GAP 7 (8-16); ASPARTATE AMINO TRANSFERASE 61 U/L (10-37); BILIRUBIN,TOTAL 0.6 MG/DL (0.1-1.0); BLOOD UREA NITROGEN 28 MG/DL (7-18); BUN/CREATININE RATIO 27.5 (5.4-32.0); CALCIUM 7.7 MG/DL (8.5-10.1); CHLORIDE 114 MMOL/L (99-107); CREATININE 1.02 MG/DL (0.60-1.10); GLUCOSE 195 MG/DL (70-104); MAGNESIUM 2.5 MG/DL (1.5-2.4); PHOSPHORUS 2.1 MG/DL (2.3-4.5); PREALBUMIN 25.9 MG/DL (19-36); SODIUM 149 MMOL/L (135-145); TOTAL CARBON DIOXIDE 28.4 MMOL/L (24-32); TOTAL PROTEIN 5.3 G/DL (6.4-8.2); eGFR 74 ML/MIN
[2018-09-10] MEDS ORDERED: magnesium 1gm/100ml D5W IVPB 100 ML IV PRN (03:45)
[2018-09-10] MEDS ORDERED: magnesium 4gm in 100ml NS 100 ML IV PRN (03:45)
[2018-09-10] MEDS: potassium Cl 40MEQ/250ML bag 250 ML IV PRN ×2 (04:33→09:24)
[2018-09-10] MEDS: potassium cl 20mEq in 1/2 NS 1,000 ML IV SCH ×2 (04:33→09:21)
[2018-09-10 05:21] LABS: ABG BASE EXCESS 0.6 mmol/L (-2.0-3.0); ABG HCO3 24.9 mmol/L (22.0-26.0); ABG OXYGEN SATURATION 96.1 % (95-98); ABG PCO2 (T) 37.8 mmHg (35.0-48.0); ABG PH (T) 7.435 (7.350-7.450); ABG PO2 (T) 80.8 mmHg (83-108); ALLEN'S TEST Positive; FCOHb 0.3 % (0.5-1.5); FMetHb 0.1 % (0.3-1.12); FO2Hb 95.7 % (94-100); MINUTE VOLUME 5 L/min; PATIENT TEMPERATURE 36.4; PEEP 5 cm H2O; RESPIRATORY RATE 12 b/min; RESPIRATORY RATE (OBSERVED) 13 b/min; TIDAL VOLUME 400 mL; TOTAL HEMOGLOBIN 10.7 G/dl (14.0-18.0)
[2018-09-10] MEDS: amLODIPine 5mg tablet PO SCH (08:10)
[2018-09-10] MEDS: aspirin 325mg tablet PO SCH (08:10)
[2018-09-10] MEDS: citalopram 20mg tablet PO SCH (08:11)
[2018-09-10] MEDS: docusate sodium 100mg/10ml UD cup PO SCH ×2 (08:11→20:19)
[2018-09-10] MEDS: rivaroxaban 20mg tablet OGT SCH (08:11)
[2018-09-10] MEDS: famotidine/PF 10 mg/ml inj IV SCH ×2 (08:11→20:19)
[2018-09-10] MEDS: multivitamins, therapeutics tablet PO SCH (08:11)
[2018-09-10] MEDS: clopidogrel 75mg tablet PO SCH (08:11)
[2018-09-10] MEDS: dexmedetomidin/NS 400mcg/100ml 100 ML IV SCH ×3 (10:55→21:39)
[2018-09-10] MEDS: midazolam 100mg in NS 100ml 100 ML IV PRN (12:03)
[2018-09-10] MEDS: insulin regular, human vial - multi-dose SQ SCH ×2 (15:03→21:44)
[2018-09-10] MEDS ORDERED: hydrALAZINE 20mg/ml inj. IV ONE (20:05)
[2018-09-10] MEDS: insulin glargine (Lantus) pen - multi-dose SQ SCH (21:48)
[2018-09-10] MEDS: labetalol 100mg tablet PO SCH (22:25)
[2018-09-10] MEDS: FENTANYL-0.9 % NACL/PF 100 ML IV PRN (22:49)
[2018-09-11] VITALS (24 sets, daily range): BP systolic 170–195; BP diastolic 70–114
[2018-09-11] MEDS: potassium cl 20mEq in 1/2 NS 1,000 ML IV SCH (01:13)
[2018-09-11] MEDS: piperacillin-tazo 2.25gm/50ml 50 ML IV SCH ×2 (02:24→08:20)
[2018-09-11] MEDS: mineral oil/petrolatum ophthal oint EACHEYE SCH ×4 (02:24→20:44)
[2018-09-11] MEDS: dexmedetomidin/NS 400mcg/100ml 100 ML IV SCH ×3 (02:24→13:52)
[2018-09-11] MEDS: hydrocortisone sod succ/PF 100mg/2ml inj. IV SCH ×3 (02:25→16:09)
[2018-09-11] MEDS: ipratropium/albuterol 3ml nebule NEB SCH ×6 (02:26→22:54)
[2018-09-11] MEDS: insulin regular, human vial - multi-dose SQ SCH ×4 (02:53→21:01)
[2018-09-11 03:19] LABS: ALANINE AMINOTRANSFERASE 258 U/L (12-78); ALBUMIN 2.2 G/DL (3.4-5.0); ALBUMIN/GLOBULIN RATIO 0.6 (1.1-1.5); ALKALINE PHOSPHATASE 76 IU/L (46-116); ANION GAP 8 (8-16); ASPARTATE AMINO TRANSFERASE 127 U/L (10-37); BILIRUBIN,TOTAL 0.7 MG/DL (0.1-1.0); BLOOD UREA NITROGEN 26 MG/DL (7-18); BUN/CREATININE RATIO 27.1 (5.4-32.0); CALCIUM 7.6 MG/DL (8.5-10.1); CHLORIDE 113 MMOL/L (99-107); CREATININE 0.96 MG/DL (0.60-1.10); GLUCOSE 207 MG/DL (70-104); MAGNESIUM 2.2 MG/DL (1.5-2.4); PHOSPHORUS 1.9 MG/DL (2.3-4.5); POTASSIUM 3.4 MMOL/L (3.5-5.1); SODIUM 148 MMOL/L (135-145); TOTAL CARBON DIOXIDE 27.4 MMOL/L (24-32); TOTAL PROTEIN 5.8 G/DL (6.4-8.2); eGFR 79 ML/MIN
[2018-09-11 03:21] LABS: BASOPHILS % (AUTO) 0 % (0-1); EOSINOPHILS # (AUTO) 0.2 X10'3 (0-0.9); EOSINOPHILS % (AUTO) 1.4 % (0-6); HEMATOCRIT 35.6 % (42.0-52.0); HEMOGLOBIN 11.4 g/dl (14.0-17.9); LYMPHOCYTES # (AUTO) 0.6 X10'3 (1.1-4.8); LYMPHOCYTES % (AUTO) 4.4 % (21-51); MEAN CORPUSCULAR HEMOGLOBIN 26.5 PG (27.0-31.0); MEAN CORPUSCULAR HGB CONC 32.1 % (33.0-36.5); MEAN CORPUSCULAR VOLUME 82.5 FL (78-98); MEAN PLATELET VOLUME 7.6 FL (7.4-10.4); MONOCYTES # (AUTO) 0.8 X10'3 (0-0.9); MONOCYTES % (AUTO) 5.4 % (2-12); NEUTROPHILS # (AUTO) 12.6 X10'3 (1.8-7.7); NEUTROPHILS % (AUTO) 88.8 % (42-75); PLATELET COUNT 360 X10'3 (140-440); RED BLOOD COUNT 4.31 X10'6 (4.70-6.10); RED CELL DISTRIBUTION WIDTH 14.9 % (11.5-14.5); WHITE BLOOD COUNT 14.2 X10'3 (4.5-11.0)
[2018-09-11 03:25] LABS: ABG BASE EXCESS 0.8 mmol/L (-2.0-3.0); ABG HCO3 24.4 mmol/L (22.0-26.0); ABG OXYGEN SATURATION 90.7 % (95-98); ABG PCO2 (T) 35.3 mmHg (35.0-48.0); ABG PH (T) 7.457 (7.350-7.450); ABG PO2 (T) 57.3 mmHg (83-108); ALLEN'S TEST Positive; FCOHb 0.4 % (0.5-1.5); FMetHb 0.2 % (0.3-1.12); FO2Hb 90.2 % (94-100); MINUTE VOLUME 6 L/min; PATIENT TEMPERATURE 36.9; PEEP 5 cm H2O; RESPIRATORY RATE 0 b/min; RESPIRATORY RATE (OBSERVED) 15 b/min; TIDAL VOLUME 369 mL; TOTAL HEMOGLOBIN 12.2 G/dl (14.0-18.0)
[2018-09-11] MEDS: potassium Cl 40MEQ/250ML bag 250 ML IV PRN (04:18)
[2018-09-11] MEDS ORDERED: linezolid 600mg/300ml PREMIX 300 ML IV ONE (08:20)
[2018-09-11] MEDS: docusate sodium 100mg/10ml UD cup PO SCH ×2 (08:22→20:45)
[2018-09-11] MEDS: citalopram 20mg tablet PO SCH (08:22)
[2018-09-11] MEDS: rivaroxaban 20mg tablet OGT SCH (08:22)
[2018-09-11] MEDS: amLODIPine 5mg tablet PO SCH (08:22)
[2018-09-11] MEDS: clopidogrel 75mg tablet PO SCH (08:22)
[2018-09-11] MEDS: hydrALAZINE 25 MG tablet PO SCH ×2 (08:23→20:44)
[2018-09-11] MEDS: multivitamins, therapeutics tablet PO SCH (08:23)
[2018-09-11] MEDS: famotidine/PF 10 mg/ml inj IV SCH ×2 (08:23→20:44)
[2018-09-11] MEDS: aspirin 325mg tablet PO SCH (08:23)
[2018-09-11] MEDS ORDERED: bisacodyl 10mg suppository rectal RC STA (08:43)
[2018-09-11] MEDS: lactulose 20gm/30ml cup PO SCH ×3 (09:06→20:45)
[2018-09-11] MEDS: furosemide 40mg/4ml inj IV SCH ×2 (09:16→16:08)
[2018-09-11] MEDS ORDERED: sodium phosphate inj. 30 MMOL in dextrose 5%-water 250 ML IV PRN (10:20)
[2018-09-11] MEDS ORDERED: sodium phosphate inj. 15 MMOL in dextrose 5%-water 150 ML IV PRN (10:20)
[2018-09-11] MEDS: midazolam 100mg in NS 100ml 100 ML IV PRN (10:35)
[2018-09-11] MEDS ORDERED: FENTANYL-0.9 % NACL/PF 100 ML IV PRN (10:35)
[2018-09-11] MEDS: Neutra Phos packet PO PRN ×2 (10:49→16:09)
[2018-09-11] MEDS: HYDROmorphone 1 mg/ml syringe IV PRN ×2 (12:57→17:23)
[2018-09-11] MEDS: cloNIDine 0.1 mg tablet PO SCH ×2 (13:53→20:44)
[2018-09-11] MEDS: atorvastatin 20mg tablet PO SCH (20:44)
[2018-09-11] MEDS: linezolid 600mg/300ml PREMIX 300 ML IV SCH (20:45)
[2018-09-11] MEDS: insulin glargine (Lantus) pen - multi-dose SQ SCH (21:02)
[2018-09-11] MEDS: labetalol 100mg tablet PO SCH (21:03)
[2018-09-12] VITALS (24 sets, daily range): BP systolic 140–196; BP diastolic 59–89
[2018-09-12] MEDS: dexmedetomidin/NS 400mcg/100ml 100 ML IV SCH ×5 (00:32→19:59)
[2018-09-12] MEDS: hydrocortisone sod succ/PF 100mg/2ml inj. IV SCH ×3 (01:12→15:55)
[2018-09-12] MEDS: HYDROmorphone 1 mg/ml syringe IV PRN (01:12)
[2018-09-12] MEDS: mineral oil/petrolatum ophthal oint EACHEYE SCH ×4 (01:13→21:13)
[2018-09-12] MEDS: midazolam 100mg in NS 100ml 100 ML IV PRN (01:13)
[2018-09-12] MEDS: furosemide 40mg/4ml inj IV SCH ×3 (01:13→15:55)
[2018-09-12] MEDS: hydrALAZINE 20mg/ml inj. IV PRN ×4 (01:14→21:57)
[2018-09-12] MEDS: lactulose 20gm/30ml cup PO SCH ×4 (02:00→19:42)
[2018-09-12 03:04] LABS: BASOPHILS # (AUTO) 0.1 X10'3 (0-0.2); BASOPHILS % (AUTO) 0.8 % (0-1); EOSINOPHILS # (AUTO) 0.2 X10'3 (0-0.9); EOSINOPHILS % (AUTO) 1.8 % (0-6); HEMATOCRIT 36.7 % (42.0-52.0); HEMOGLOBIN 11.9 g/dl (14.0-17.9); LYMPHOCYTES # (AUTO) 0.4 X10'3 (1.1-4.8); MEAN CORPUSCULAR HEMOGLOBIN 26.3 PG (27.0-31.0); MEAN CORPUSCULAR HGB CONC 32.3 % (33.0-36.5); MEAN CORPUSCULAR VOLUME 81.3 FL (78-98); MEAN PLATELET VOLUME 7.3 FL (7.4-10.4); MONOCYTES # (AUTO) 0.7 X10'3 (0-0.9); MONOCYTES % (AUTO) 4.9 % (2-12); NEUTROPHILS # (AUTO) 12.3 X10'3 (1.8-7.7); NEUTROPHILS % (AUTO) 89.5 % (42-75); PLATELET COUNT 306 X10'3 (140-440); RED BLOOD COUNT 4.51 X10'6 (4.70-6.10); RED CELL DISTRIBUTION WIDTH 14.8 % (11.5-14.5); WHITE BLOOD COUNT 13.7 X10'3 (4.5-11.0)
[2018-09-12] MEDS: ipratropium/albuterol 3ml nebule NEB SCH ×6 (03:11→23:13)
[2018-09-12 03:20] LABS: ALANINE AMINOTRANSFERASE 285 U/L (12-78); ALBUMIN/GLOBULIN RATIO 0.6 (1.1-1.5); ALKALINE PHOSPHATASE 81 IU/L (46-116); ANION GAP 7 (8-16); ASPARTATE AMINO TRANSFERASE 96 U/L (10-37); BILIRUBIN,TOTAL 0.8 MG/DL (0.1-1.0); BLOOD UREA NITROGEN 28 MG/DL (7-18); CALCIUM 7.6 MG/DL (8.5-10.1); CHLORIDE 112 MMOL/L (99-107); GLUCOSE 249 MG/DL (70-104); MAGNESIUM 1.7 MG/DL (1.5-2.4); PHOSPHORUS 1.7 MG/DL (2.3-4.5); SODIUM 149 MMOL/L (135-145); TOTAL CARBON DIOXIDE 30.4 MMOL/L (24-32); TOTAL PROTEIN 5.4 G/DL (6.4-8.2); eGFR 75 ML/MIN
[2018-09-12 03:25] LABS: POTASSIUM 2.5 MMOL/L (3.5-5.1)
[2018-09-12] MEDS: insulin regular, human vial - multi-dose SQ SCH ×4 (03:29→21:16)
[2018-09-12 04:36] LABS: ABG BASE EXCESS 5.4 mmol/L (-2.0-3.0); ABG HCO3 28.6 mmol/L (22.0-26.0); ABG OXYGEN SATURATION 93.6 % (95-98); ABG PCO2 (T) 36.5 mmHg (35.0-48.0); ABG PH (T) 7.511 (7.350-7.450); ABG PO2 (T) 63.1 mmHg (83-108); ALLEN'S TEST Positive; FCOHb 0.8 % (0.5-1.5); FMetHb 0.2 % (0.3-1.12); FO2Hb 92.7 % (94-100); PATIENT TEMPERATURE 36.8; PEEP 5 cm H2O; RESPIRATORY RATE 12 b/min; TIDAL VOLUME 400 mL; TOTAL HEMOGLOBIN 12.9 G/dl (14.0-18.0)
[2018-09-12] MEDS: potassium Cl 40MEQ/250ML bag 250 ML IV PRN (05:28)
[2018-09-12] MEDS: amLODIPine 5mg tablet PO SCH (08:32)
[2018-09-12] MEDS: cloNIDine 0.1 mg tablet PO SCH ×2 (08:32→19:43)
[2018-09-12] MEDS: docusate sodium 100mg/10ml UD cup PO SCH ×2 (08:33→19:42)
[2018-09-12] MEDS: multivitamins, therapeutics tablet PO SCH (08:33)
[2018-09-12] MEDS: clopidogrel 75mg tablet PO SCH (08:33)
[2018-09-12] MEDS: rivaroxaban 20mg tablet OGT SCH (08:33)
[2018-09-12] MEDS: aspirin 325mg tablet PO SCH (08:33)
[2018-09-12] MEDS: famotidine/PF 10 mg/ml inj IV SCH ×2 (08:33→19:43)
[2018-09-12] MEDS: linezolid 600mg/300ml PREMIX 300 ML IV SCH ×2 (08:34→19:58)
[2018-09-12] MEDS: hydrALAZINE 25 MG tablet PO SCH ×2 (08:45→19:43)
[2018-09-12] MEDS: lactobacillus rhamnosus 10,000 MMU CELLS/CAPSULE PO SCH (19:42)
[2018-09-12] MEDS: atorvastatin 20mg tablet PO SCH (21:13)
[2018-09-12] MEDS: insulin glargine (Lantus) pen - multi-dose SQ SCH (21:18)
[2018-09-13] VITALS (26 sets, daily range): BP systolic 120–188; BP diastolic 61–105
[2018-09-13] MEDS: lactulose 20gm/30ml cup PO SCH ×2 (00:10→07:28)
[2018-09-13] MEDS: dexmedetomidin/NS 400mcg/100ml 100 ML IV SCH ×4 (00:16→18:07)
[2018-09-13] MEDS: furosemide 40mg/4ml inj IV SCH ×3 (00:16→15:58)
[2018-09-13] MEDS: hydrocortisone sod succ/PF 100mg/2ml inj. IV SCH ×3 (00:16→15:58)
[2018-09-13] MEDS: midazolam 100mg in NS 100ml 100 ML IV PRN ×3 (00:50→19:26)
[2018-09-13] MEDS: mineral oil/petrolatum ophthal oint EACHEYE SCH ×4 (00:50→19:42)
[2018-09-13] MEDS: insulin regular, human vial - multi-dose SQ SCH ×4 (01:57→20:03)
[2018-09-13 02:41] LABS: BASOPHILS % (AUTO) 0.2 % (0-1); EOSINOPHILS # (AUTO) 0.2 X10'3 (0-0.9); EOSINOPHILS % (AUTO) 1.7 % (0-6); HEMOGLOBIN 10.9 g/dl (14.0-17.9); LYMPHOCYTES # (AUTO) 0.5 X10'3 (1.1-4.8); LYMPHOCYTES % (AUTO) 4.1 % (21-51); MEAN CORPUSCULAR HEMOGLOBIN 26.1 PG (27.0-31.0); MEAN CORPUSCULAR HGB CONC 31.9 % (33.0-36.5); MEAN CORPUSCULAR VOLUME 81.7 FL (78-98); MEAN PLATELET VOLUME 8.1 FL (7.4-10.4); MONOCYTES # (AUTO) 0.7 X10'3 (0-0.9); MONOCYTES % (AUTO) 5.7 % (2-12); NEUTROPHILS # (AUTO) 10.3 X10'3 (1.8-7.7); NEUTROPHILS % (AUTO) 88.3 % (42-75); PLATELET COUNT 258 X10'3 (140-440); RED BLOOD COUNT 4.16 X10'6 (4.70-6.10); RED CELL DISTRIBUTION WIDTH 14.6 % (11.5-14.5); WHITE BLOOD COUNT 11.7 X10'3 (4.5-11.0)
[2018-09-13 02:53] LABS: ALANINE AMINOTRANSFERASE 198 U/L (12-78); ALBUMIN 1.9 G/DL (3.4-5.0); ALBUMIN/GLOBULIN RATIO 0.6 (1.1-1.5); ALKALINE PHOSPHATASE 78 IU/L (46-116); ANION GAP 6 (8-16); ASPARTATE AMINO TRANSFERASE 46 U/L (10-37); BILIRUBIN,TOTAL 0.5 MG/DL (0.1-1.0); BLOOD UREA NITROGEN 37 MG/DL (7-18); BUN/CREATININE RATIO 33.3 (5.4-32.0); CHLORIDE 111 MMOL/L (99-107); CREATININE 1.11 MG/DL (0.60-1.10); GLUCOSE 276 MG/DL (70-104); MAGNESIUM 1.6 MG/DL (1.5-2.4); PHOSPHORUS 1.6 MG/DL (2.3-4.5); PREALBUMIN 28.1 MG/DL (19-36); SODIUM 150 MMOL/L (135-145); eGFR 67 ML/MIN
[2018-09-13 03:02] LABS: POTASSIUM 2.8 MMOL/L (3.5-5.1)
[2018-09-13] MEDS: ipratropium/albuterol 3ml nebule NEB SCH ×6 (03:22→22:52)
[2018-09-13 03:41] LABS: ABG BASE EXCESS 4.8 mmol/L (-2.0-3.0); ABG HCO3 27.8 mmol/L (22.0-26.0); ABG OXYGEN SATURATION 96.1 % (95-98); ABG PH (T) 7.497 (7.350-7.450); ALLEN'S TEST Positive; FCOHb 0.6 % (0.5-1.5); FO2Hb 95.5 % (94-100); MINUTE VOLUME 8 L/min; PATIENT TEMPERATURE 38.1; PEEP 5 cm H2O; RESPIRATORY RATE 10 b/min; RESPIRATORY RATE (OBSERVED) 20 b/min; TIDAL VOLUME 400 mL; TOTAL HEMOGLOBIN 11.7 G/dl (14.0-18.0)
[2018-09-13] MEDS: Neutra Phos packet PO PRN ×2 (04:19→18:20)
[2018-09-13] MEDS: potassium Cl 40MEQ/250ML bag 250 ML IV PRN ×3 (04:19→18:22)
[2018-09-13] MEDS: lactobacillus rhamnosus 10,000 MMU CELLS/CAPSULE PO SCH ×2 (07:28→19:42)
[2018-09-13] MEDS: famotidine/PF 10 mg/ml inj IV SCH ×2 (07:28→19:43)
[2018-09-13] MEDS: cloNIDine 0.1 mg tablet PO SCH ×2 (07:28→19:42)
[2018-09-13] MEDS: amLODIPine 5mg tablet PO SCH (07:28)
[2018-09-13] MEDS: linezolid 600mg/300ml PREMIX 300 ML IV SCH ×2 (07:28→19:43)
[2018-09-13] MEDS: aspirin 325mg tablet PO SCH (07:28)
[2018-09-13] MEDS: hydrALAZINE 25 MG tablet PO SCH ×2 (07:29→19:43)
[2018-09-13] MEDS: multivitamins, therapeutics tablet PO SCH (07:29)
[2018-09-13] MEDS: docusate sodium 100mg/10ml UD cup PO SCH ×2 (07:29→19:43)
[2018-09-13] MEDS: rivaroxaban 20mg tablet OGT SCH (08:00)
[2018-09-13] MEDS ORDERED: LIDOcaine 1% (10mg/ml) 2ml vial ONE (11:04)
[2018-09-13] MEDS: clopidogrel 75mg tablet PO SCH (12:27)
[2018-09-13 17:26] LABS: POTASSIUM 2.9 MMOL/L (3.5-5.1)
[2018-09-13 18:09] LABS: PHOSPHORUS 1.9 MG/DL (2.3-4.5)
[2018-09-13] MEDS: insulin glargine (Lantus) pen - multi-dose SQ SCH (20:06)
[2018-09-13] MEDS: atorvastatin 20mg tablet PO SCH (22:21)
[2018-09-14] VITALS (24 sets, daily range): BP systolic 140–183; BP diastolic 61–105
[2018-09-14] MEDS: furosemide 40mg/4ml inj IV SCH ×3 (00:02→15:34)
[2018-09-14] MEDS: hydrocortisone sod succ/PF 100mg/2ml inj. IV SCH ×3 (00:02→15:33)
[2018-09-14] MEDS: Neutra Phos packet PO PRN ×3 (00:27→16:00)
[2018-09-14] MEDS: mineral oil/petrolatum ophthal oint EACHEYE SCH ×4 (02:50→19:29)
[2018-09-14] MEDS: insulin regular, human vial - multi-dose SQ SCH ×4 (02:55→19:51)
[2018-09-14] MEDS: ipratropium/albuterol 3ml nebule NEB SCH ×6 (03:00→22:52)
[2018-09-14 03:31] LABS: ABG BASE EXCESS 3.3 mmol/L (-2.0-3.0); ABG HCO3 26.4 mmol/L (22.0-26.0); ABG OXYGEN SATURATION 94.9 % (95-98); ABG PCO2 (T) 33.7 mmHg (35.0-48.0); ABG PH (T) 7.509 (7.350-7.450); ABG PO2 (T) 66.8 mmHg (83-108); FCOHb 0.3 % (0.5-1.5); FMetHb 0.1 % (0.3-1.12); FO2Hb 94.5 % (94-100); MINUTE VOLUME 8 L/min; PATIENT TEMPERATURE 36.4; PEEP 5 cm H2O; RESPIRATORY RATE 0 b/min; RESPIRATORY RATE (OBSERVED) 21 b/min; TOTAL HEMOGLOBIN 10.6 G/dl (14.0-18.0)
[2018-09-14] MEDS: midazolam 100mg in NS 100ml 100 ML IV PRN (03:37)
[2018-09-14] MEDS: dexmedetomidin/NS 400mcg/100ml 100 ML IV SCH ×3 (03:37→14:44)
[2018-09-14 05:05] LABS: BASOPHILS % (AUTO) 0.1 % (0-1); EOSINOPHILS # (AUTO) 0.2 X10'3 (0-0.9); EOSINOPHILS % (AUTO) 2.3 % (0-6); HEMATOCRIT 33.5 % (42.0-52.0); HEMOGLOBIN 10.7 g/dl (14.0-17.9); LYMPHOCYTES # (AUTO) 0.4 X10'3 (1.1-4.8); LYMPHOCYTES % (AUTO) 3.9 % (21-51); MEAN CORPUSCULAR HEMOGLOBIN 26.1 PG (27.0-31.0); MEAN CORPUSCULAR HGB CONC 31.9 % (33.0-36.5); MEAN CORPUSCULAR VOLUME 81.8 FL (78-98); MEAN PLATELET VOLUME 8.5 FL (7.4-10.4); MONOCYTES # (AUTO) 0.5 X10'3 (0-0.9); MONOCYTES % (AUTO) 5.1 % (2-12); NEUTROPHILS # (AUTO) 9.1 X10'3 (1.8-7.7); NEUTROPHILS % (AUTO) 88.6 % (42-75); PLATELET COUNT 218 X10'3 (140-440); RED BLOOD COUNT 4.09 X10'6 (4.70-6.10); RED CELL DISTRIBUTION WIDTH 14.9 % (11.5-14.5); WHITE BLOOD COUNT 10.3 X10'3 (4.5-11.0)
[2018-09-14 05:23] LABS: ALANINE AMINOTRANSFERASE 134 U/L (12-78); ALBUMIN 1.9 G/DL (3.4-5.0); ALBUMIN/GLOBULIN RATIO 0.6 (1.1-1.5); ALKALINE PHOSPHATASE 66 IU/L (46-116); ANION GAP 6 (8-16); ASPARTATE AMINO TRANSFERASE 26 U/L (10-37); BILIRUBIN,TOTAL 0.5 MG/DL (0.1-1.0); BLOOD UREA NITROGEN 35 MG/DL (7-18); BUN/CREATININE RATIO 37.6 (5.4-32.0); CALCIUM 7.4 MG/DL (8.5-10.1); CHLORIDE 110 MMOL/L (99-107); CREATININE 0.93 MG/DL (0.60-1.10); GLUCOSE 240 MG/DL (70-104); MAGNESIUM 1.6 MG/DL (1.5-2.4); PHOSPHORUS 2.1 MG/DL (2.3-4.5); POTASSIUM 3.1 MMOL/L (3.5-5.1); SODIUM 149 MMOL/L (135-145); TOTAL CARBON DIOXIDE 32.9 MMOL/L (24-32); TOTAL PROTEIN 5.1 G/DL (6.4-8.2); eGFR 82 ML/MIN
[2018-09-14] MEDS: lactobacillus rhamnosus 10,000 MMU CELLS/CAPSULE PO SCH ×2 (07:29→19:29)
[2018-09-14] MEDS: clopidogrel 75mg tablet PO SCH (07:29)
[2018-09-14] MEDS: hydrALAZINE 25 MG tablet PO SCH ×2 (07:29→19:29)
[2018-09-14] MEDS: famotidine/PF 10 mg/ml inj IV SCH ×2 (07:29→19:29)
[2018-09-14] MEDS: cloNIDine 0.1 mg tablet PO SCH ×2 (07:29→19:29)
[2018-09-14] MEDS: multivitamins, therapeutics tablet PO SCH (07:29)
[2018-09-14] MEDS: amLODIPine 5mg tablet PO SCH (07:29)
[2018-09-14] MEDS: aspirin 325mg tablet PO SCH (07:30)
[2018-09-14] MEDS: potassium Cl 40MEQ/250ML bag 250 ML IV PRN ×2 (07:32→22:15)
[2018-09-14] MEDS: rivaroxaban 20mg tablet OGT SCH (07:49)
[2018-09-14] MEDS: linezolid 600mg/300ml PREMIX 300 ML IV SCH ×2 (07:49→19:30)
[2018-09-14] MEDS: docusate sodium 100mg/10ml UD cup PO SCH ×2 (08:58→19:29)
[2018-09-14] MEDS: atorvastatin 20mg tablet PO SCH (19:28)
[2018-09-14] MEDS: insulin glargine (Lantus) pen - multi-dose SQ SCH (19:50)
[2018-09-14 20:33] LABS: PHOSPHORUS 2.4 MG/DL (2.3-4.5); POTASSIUM 3.1 MMOL/L (3.5-5.1)
[2018-09-15] VITALS (24 sets, daily range): BP systolic 136–177; BP diastolic 67–93
[2018-09-15] MEDS: furosemide 40mg/4ml inj IV SCH ×4 (00:28→23:09)
[2018-09-15] MEDS: hydrocortisone sod succ/PF 100mg/2ml inj. IV SCH ×4 (00:28→23:09)
[2018-09-15] MEDS: dexmedetomidin/NS 400mcg/100ml 100 ML IV SCH ×4 (01:19→22:55)
[2018-09-15] MEDS: mineral oil/petrolatum ophthal oint EACHEYE SCH ×4 (01:19→19:19)
[2018-09-15] MEDS: insulin regular, human vial - multi-dose SQ SCH ×4 (02:51→19:38)
[2018-09-15] MEDS: HYDROmorphone 1 mg/ml syringe IV PRN ×2 (03:04→21:44)
[2018-09-15] MEDS: ipratropium/albuterol 3ml nebule NEB SCH ×6 (03:09→23:02)
[2018-09-15 03:24] LABS: ALANINE AMINOTRANSFERASE 94 U/L (12-78); ALBUMIN 1.8 G/DL (3.4-5.0); ALBUMIN/GLOBULIN RATIO 0.6 (1.1-1.5); ALKALINE PHOSPHATASE 64 IU/L (46-116); ANION GAP 7 (8-16); ASPARTATE AMINO TRANSFERASE 21 U/L (10-37); BASOPHILS % (AUTO) 0 % (0-1); BILIRUBIN,TOTAL 0.4 MG/DL (0.1-1.0); BLOOD UREA NITROGEN 36 MG/DL (7-18); BUN/CREATININE RATIO 39.6 (5.4-32.0); CHLORIDE 107 MMOL/L (99-107); CREATININE 0.91 MG/DL (0.60-1.10); EOSINOPHILS # (AUTO) 0.3 X10'3 (0-0.9); EOSINOPHILS % (AUTO) 2.2 % (0-6); GLUCOSE 250 MG/DL (70-104); HEMATOCRIT 32.4 % (42.0-52.0); HEMOGLOBIN 10.4 g/dl (14.0-17.9); LYMPHOCYTES # (AUTO) 0.4 X10'3 (1.1-4.8); LYMPHOCYTES % (AUTO) 3.1 % (21-51); MAGNESIUM 1.5 MG/DL (1.5-2.4); MEAN CORPUSCULAR HEMOGLOBIN 26.2 PG (27.0-31.0); MEAN CORPUSCULAR VOLUME 81.8 FL (78-98); MEAN PLATELET VOLUME 8.7 FL (7.4-10.4); MONOCYTES # (AUTO) 0.6 X10'3 (0-0.9); NEUTROPHILS # (AUTO) 11.2 X10'3 (1.8-7.7); NEUTROPHILS % (AUTO) 89.7 % (42-75); PHOSPHORUS 2.1 MG/DL (2.3-4.5); PLATELET COUNT 216 X10'3 (140-440); POTASSIUM 3.1 MMOL/L (3.5-5.1); RED BLOOD COUNT 3.97 X10'6 (4.70-6.10); SODIUM 148 MMOL/L (135-145); TOTAL CARBON DIOXIDE 33.7 MMOL/L (24-32); TOTAL PROTEIN 4.9 G/DL (6.4-8.2); WHITE BLOOD COUNT 12.5 X10'3 (4.5-11.0); eGFR 84 ML/MIN
[2018-09-15] MEDS: Neutra Phos packet PO PRN ×2 (04:02→11:01)
[2018-09-15] MEDS: potassium Cl 40MEQ/250ML bag 250 ML IV PRN (04:03)
[2018-09-15 04:10] LABS: ABG BASE EXCESS 7.1 mmol/L (-2.0-3.0); ABG HCO3 31.2 mmol/L (22.0-26.0); ABG OXYGEN SATURATION 95.2 % (95-98); ABG PH (T) 7.488 (7.350-7.450); ABG PO2 (T) 69.9 mmHg (83-108); ALLEN'S TEST Positive; FCOHb 0.3 % (0.5-1.5); FMetHb 0.2 % (0.3-1.12); FO2Hb 94.7 % (94-100); MINUTE VOLUME 7 L/min; PATIENT TEMPERATURE 36.7; PEEP 5 cm H2O; RESPIRATORY RATE 12 b/min; RESPIRATORY RATE (OBSERVED) 16 b/min; TIDAL VOLUME 400 mL; TOTAL HEMOGLOBIN 11.4 G/dl (14.0-18.0)
[2018-09-15] MEDS: cloNIDine 0.1 mg tablet PO SCH ×2 (07:17→19:19)
[2018-09-15] MEDS: docusate sodium 100mg/10ml UD cup PO SCH ×2 (07:17→19:19)
[2018-09-15] MEDS: multivitamins, therapeutics tablet PO SCH (07:17)
[2018-09-15] MEDS: linezolid 600mg/300ml PREMIX 300 ML IV SCH ×2 (07:17→19:20)
[2018-09-15] MEDS: lactobacillus rhamnosus 10,000 MMU CELLS/CAPSULE PO SCH ×2 (07:17→19:19)
[2018-09-15] MEDS: aspirin 325mg tablet PO SCH (07:17)
[2018-09-15] MEDS: famotidine/PF 10 mg/ml inj IV SCH ×2 (07:17→19:19)
[2018-09-15] MEDS: clopidogrel 75mg tablet PO SCH (07:17)
[2018-09-15] MEDS: hydrALAZINE 25 MG tablet PO SCH ×2 (07:17→19:19)
[2018-09-15] MEDS: rivaroxaban 20mg tablet OGT SCH (07:18)
[2018-09-15] MEDS: amLODIPine 5mg tablet PO SCH (07:18)
[2018-09-15] MEDS ORDERED: CADD PCA waste documentation MC PRN (15:55)
[2018-09-15] MEDS ORDERED: naloxone 0.4 mg/ml inj IV PRN (15:55)
[2018-09-15] MEDS: HYDROcodone/acetaminophen 5mg/325mg tablet PO PRN (19:19)
[2018-09-15] MEDS: ondansetron/PF 4mg/2ml inj IV PRN (19:21)
[2018-09-15] MEDS: insulin glargine (Lantus) pen - multi-dose SQ SCH (19:40)
[2018-09-15] MEDS: atorvastatin 20mg tablet PO SCH (21:43)
[2018-09-15 22:29] LABS: POTASSIUM 3.5 MMOL/L (3.5-5.1); TROPONIN I 0.11 NG/ML (0.0-0.05)
[2018-09-16] VITALS (24 sets, daily range): BP systolic 96–165; BP diastolic 59–90
[2018-09-16] MEDS: mineral oil/petrolatum ophthal oint EACHEYE SCH ×4 (01:41→20:00)
[2018-09-16] MEDS: HYDROcodone/acetaminophen 5mg/325mg tablet PO PRN (02:39)
[2018-09-16] MEDS: HYDROmorphone 1 mg/ml syringe IV PRN (02:47)
[2018-09-16] MEDS: ipratropium/albuterol 3ml nebule NEB SCH ×6 (03:00→23:00)
[2018-09-16 03:04] LABS: BASOPHILS % (AUTO) 0 % (0-1); EOSINOPHILS # (AUTO) 0.5 X10'3 (0-0.9); HEMATOCRIT 33.8 % (42.0-52.0); HEMOGLOBIN 10.9 g/dl (14.0-17.9); LYMPHOCYTES # (AUTO) 0.5 X10'3 (1.1-4.8); LYMPHOCYTES % (AUTO) 2.2 % (21-51); MEAN CORPUSCULAR HEMOGLOBIN 26.1 PG (27.0-31.0); MEAN CORPUSCULAR HGB CONC 32.1 % (33.0-36.5); MEAN CORPUSCULAR VOLUME 81.2 FL (78-98); MONOCYTES # (AUTO) 1.5 X10'3 (0-0.9); MONOCYTES % (AUTO) 6.2 % (2-12); NEUTROPHILS % (AUTO) 89.6 % (42-75); PLATELET COUNT 237 X10'3 (140-440); RED BLOOD COUNT 4.17 X10'6 (4.70-6.10); RED CELL DISTRIBUTION WIDTH 14.5 % (11.5-14.5); WHITE BLOOD COUNT 24.6 X10'3 (4.5-11.0)
[2018-09-16 03:08] LABS: ALANINE AMINOTRANSFERASE 76 U/L (12-78); ALBUMIN/GLOBULIN RATIO 0.6 (1.1-1.5); ALKALINE PHOSPHATASE 68 IU/L (46-116); ANION GAP 4 (8-16); ASPARTATE AMINO TRANSFERASE 20 U/L (10-37); BILIRUBIN,TOTAL 0.5 MG/DL (0.1-1.0); BLOOD UREA NITROGEN 37 MG/DL (7-18); CALCIUM 6.9 MG/DL (8.5-10.1); CHLORIDE 107 MMOL/L (99-107); CREATININE 0.86 MG/DL (0.60-1.10); GLUCOSE 68 MG/DL (70-104); MAGNESIUM 1.5 MG/DL (1.5-2.4); PHOSPHORUS 2.8 MG/DL (2.3-4.5); SODIUM 145 MMOL/L (135-145); TOTAL CARBON DIOXIDE 34.2 MMOL/L (24-32); TOTAL PROTEIN 5.4 G/DL (6.4-8.2); TROPONIN I 0.09 NG/ML (0.0-0.05); eGFR 90 ML/MIN
[2018-09-16] MEDS: potassium Cl 40MEQ/250ML bag 250 ML IV PRN (04:25)
[2018-09-16] MEDS: dexmedetomidin/NS 400mcg/100ml 100 ML IV SCH (04:25)
[2018-09-16] MEDS ORDERED: LORazepam 2 mg/ml vial IV ONE (04:40)
[2018-09-16] MEDS: clopidogrel 75mg tablet PO SCH (07:51)
[2018-09-16] MEDS: rivaroxaban 20mg tablet OGT SCH (07:52)
[2018-09-16] MEDS: aspirin 325mg tablet PO SCH (07:52)
[2018-09-16] MEDS: amLODIPine 5mg tablet PO SCH (07:52)
[2018-09-16] MEDS: lactobacillus rhamnosus 10,000 MMU CELLS/CAPSULE PO SCH ×2 (07:52→20:32)
[2018-09-16] MEDS: multivitamins, therapeutics tablet PO SCH (07:52)
[2018-09-16] MEDS: cloNIDine 0.1 mg tablet PO SCH ×2 (07:52→20:31)
[2018-09-16] MEDS: hydrALAZINE 25 MG tablet PO SCH ×2 (07:53→20:31)
[2018-09-16] MEDS: furosemide 40mg/4ml inj IV SCH ×2 (07:56→16:00)
[2018-09-16] MEDS: hydrocortisone sod succ/PF 100mg/2ml inj. IV SCH (07:56)
[2018-09-16] MEDS: docusate sodium 100mg/10ml UD cup PO SCH ×2 (07:56→20:32)
[2018-09-16] MEDS: famotidine/PF 10 mg/ml inj IV SCH ×2 (07:57→20:32)
[2018-09-16] MEDS: linezolid 600mg/300ml PREMIX 300 ML IV SCH (08:17)
[2018-09-16] MEDS: insulin regular, human vial - multi-dose SQ SCH (09:07)
[2018-09-16] MEDS: potassium Cl 20 mEq SR tablet PO PRN ×3 (11:01→20:31)
[2018-09-16] MEDS: ondansetron/PF 4mg/2ml inj IV PRN ×2 (12:11→19:00)
[2018-09-16 13:18] LABS: SODIUM,URINE RANDOM < 15 MEQ/L
[2018-09-16] MEDS: nitroGLYCERIN 0.4mg SUBLingual tab SL PRN ×3 (13:44→15:44)
[2018-09-16 14:16] LABS: CLARITY,URINE SLIGHTLY CLOUDY (Clear); COLOR,URINE YELLOW (Yellow); UA COLLECTION TYPE CLN CATCH MIDSTREAM
[2018-09-16 14:17] LABS: GLUCOSE, URINE NEGATIVE (Neg); KETONES,URINE NEGATIVE (Neg); LEUKOCYTE ESTERASE ,URINE MODERATE (Neg); NITRITES, URINE NEGATIVE (Neg); OCCULT BLOOD,URINE SMALL (Neg); PH,URINE 5.5 (4.8-8.0); PROTEIN,URINE 100 mg/dl (Neg); UROBILINOGEN,URINE 0.2 E.U/dL (0.2-1.0)
[2018-09-16 14:19] LABS: COARSE GRANULAR CAST 0-3 /LPF (NEGATIVE); WBC CLUMPS,URINE FEW /HPF (NEGATIVE)
[2018-09-16 14:20] LABS: BACTERIA,URINE 2+ /HPF (Neg); MUCUS STRANDS FEW /LPF (Neg); SQUAMOUS EPITHELIAL CELL,UR FEW /LPF (FEW)
[2018-09-16 14:21] LABS: WBC,URINE TNTC /HPF (0-4)
[2018-09-16] MEDS ORDERED: mag hydrox/Alum hydrox/simeth 30ml oral suspension PO ONE (14:45)
[2018-09-16 15:27] LABS: TROPONIN I 0.06 NG/ML (0.0-0.05)
[2018-09-16 15:28] LABS: UA EOSINOPHILS NO EOS /HPF
[2018-09-16 15:30] LABS: POTASSIUM 2.9 MMOL/L (3.5-5.1)
[2018-09-16] MEDS: LORazepam 0.5 MG tablet PO PRN ×2 (15:52→20:32)
[2018-09-16] MEDS ORDERED: haloperidol lactate 5mg/ml inj IM ONE (18:35)
[2018-09-16] MEDS: levoFLOXACIN-Levaquin 500mg/D5 100 ML IV SCH (19:00)
[2018-09-16] MEDS: atorvastatin 20mg tablet PO SCH (20:32)
[2018-09-16] MEDS: insulin glargine (Lantus) pen - multi-dose SQ SCH (21:38)
[2018-09-17] VITALS (21 sets, daily range): BP systolic 94–159; BP diastolic 44–93
[2018-09-17] MEDS: furosemide 40mg/4ml inj IV SCH ×4 (00:08→23:36)
[2018-09-17] MEDS: potassium Cl 20 mEq SR tablet PO PRN ×4 (00:40→17:10)
[2018-09-17] MEDS: mineral oil/petrolatum ophthal oint EACHEYE SCH ×3 (02:00→14:00)
[2018-09-17] MEDS: ipratropium/albuterol 3ml nebule NEB SCH ×6 (03:00→22:53)
[2018-09-17 04:01] LABS: BASOPHILS % (AUTO) 0 % (0-1); EOSINOPHILS # (AUTO) 0.4 X10'3 (0-0.9); EOSINOPHILS % (AUTO) 1.5 % (0-6); HEMATOCRIT 27.4 % (42.0-52.0); LYMPHOCYTES # (AUTO) 0.6 X10'3 (1.1-4.8); LYMPHOCYTES % (AUTO) 2.5 % (21-51); MEAN CORPUSCULAR HEMOGLOBIN 26.3 PG (27.0-31.0); MEAN CORPUSCULAR HGB CONC 32.8 % (33.0-36.5); MEAN CORPUSCULAR VOLUME 80.3 FL (78-98); MEAN PLATELET VOLUME 9.4 FL (7.4-10.4); MONOCYTES # (AUTO) 1.6 X10'3 (0-0.9); MONOCYTES % (AUTO) 6.4 % (2-12); NEUTROPHILS # (AUTO) 22.1 X10'3 (1.8-7.7); NEUTROPHILS % (AUTO) 89.6 % (42-75); PLATELET COUNT 185 X10'3 (140-440); RED BLOOD COUNT 3.42 X10'6 (4.70-6.10); RED CELL DISTRIBUTION WIDTH 14.6 % (11.5-14.5); WHITE BLOOD COUNT 24.6 X10'3 (4.5-11.0)
[2018-09-17 04:02] LABS: ALANINE AMINOTRANSFERASE 47 U/L (12-78); ALBUMIN 1.8 G/DL (3.4-5.0); ALBUMIN/GLOBULIN RATIO 0.5 (1.1-1.5); ALKALINE PHOSPHATASE 69 IU/L (46-116); ANION GAP 6 (8-16); ASPARTATE AMINO TRANSFERASE 25 U/L (10-37); BILIRUBIN,TOTAL 0.7 MG/DL (0.1-1.0); BLOOD UREA NITROGEN 48 MG/DL (7-18); BUN/CREATININE RATIO 33.1 (5.4-32.0); CALCIUM 6.9 MG/DL (8.5-10.1); CHLORIDE 105 MMOL/L (99-107); CREATININE 1.45 MG/DL (0.60-1.10); GLUCOSE 87 MG/DL (70-104); MAGNESIUM 1.3 MG/DL (1.5-2.4); PHOSPHORUS 2.3 MG/DL (2.3-4.5); POTASSIUM 3.3 MMOL/L (3.5-5.1); SODIUM 143 MMOL/L (135-145); TOTAL CARBON DIOXIDE 32.2 MMOL/L (24-32); TOTAL PROTEIN 5.1 G/DL (6.4-8.2); eGFR 49 ML/MIN
[2018-09-17] MEDS: ondansetron/PF 4mg/2ml inj IV PRN ×2 (06:07→19:13)
[2018-09-17 07:43] LABS: PLATELET ESTIMATE NORMAL
[2018-09-17] MEDS: docusate sodium 100mg/10ml UD cup PO SCH ×2 (08:00→20:56)
[2018-09-17] MEDS: hydrALAZINE 25 MG tablet PO SCH ×2 (08:00→20:00)
[2018-09-17] MEDS: cloNIDine 0.1 mg tablet PO SCH ×2 (08:00→20:47)
[2018-09-17] MEDS: levoFLOXACIN-Levaquin 500mg/D5 100 ML IV SCH (08:55)
[2018-09-17 10:37] LABS: GASTRIC OCCULT BLOOD POSITIVE (Neg)
[2018-09-17] MEDS: citalopram 20mg tablet PO SCH (11:03)
[2018-09-17] MEDS: amLODIPine 5mg tablet PO SCH (11:03)
[2018-09-17] MEDS: aspirin 325mg tablet PO SCH (11:03)
[2018-09-17] MEDS: rivaroxaban 20mg tablet OGT SCH (11:03)
[2018-09-17] MEDS: famotidine/PF 10 mg/ml inj IV SCH ×2 (11:04→20:45)
[2018-09-17] MEDS: multivitamins, therapeutics tablet PO SCH (11:05)
[2018-09-17] MEDS: lactobacillus rhamnosus 10,000 MMU CELLS/CAPSULE PO SCH ×2 (11:05→20:48)
[2018-09-17] MEDS: clopidogrel 75mg tablet PO SCH (11:09)
[2018-09-17] MEDS: LORazepam 0.5 MG tablet PO PRN (17:06)
[2018-09-17] MEDS: atorvastatin 20mg tablet PO SCH (20:48)
[2018-09-17] MEDS ORDERED: proCHLORperazine 10 MG/2 ml inj IV PRN (21:20)
[2018-09-17] MEDS: insulin glargine (Lantus) pen - multi-dose SQ SCH (21:37)
[2018-09-18] VITALS (23 sets, daily range): BP systolic 113–151; BP diastolic 55–72
[2018-09-18 00:46] LABS: ABG BASE EXCESS 1.2 mmol/L (-2.0-3.0); ABG HCO3 24.9 mmol/L (22.0-26.0); ABG OXYGEN SATURATION 93.5 % (95-98); ABG PCO2 (T) 37.6 mmHg (35.0-48.0); ABG PH (T) 7.443 (7.350-7.450); ABG PO2 (T) 69.9 mmHg (83-108); ALLEN'S TEST Positive; FCOHb 0.3 % (0.5-1.5); FMetHb 0.2 % (0.3-1.12); PATIENT TEMPERATURE 38.1; RESPIRATORY RATE 16 b/min; RESPIRATORY RATE (OBSERVED) 28 b/min; TOTAL HEMOGLOBIN 9.6 G/dl (14.0-18.0)
[2018-09-18 03:27] LABS: BASOPHILS % (AUTO) 0 % (0-1); EOSINOPHILS # (AUTO) 0.4 X10'3 (0-0.9); EOSINOPHILS % (AUTO) 2.3 % (0-6); HEMATOCRIT 26.6 % (42.0-52.0); HEMOGLOBIN 8.7 g/dl (14.0-17.9); LYMPHOCYTES # (AUTO) 0.4 X10'3 (1.1-4.8); LYMPHOCYTES % (AUTO) 2.6 % (21-51); MEAN CORPUSCULAR HEMOGLOBIN 26.5 PG (27.0-31.0); MEAN CORPUSCULAR HGB CONC 32.6 % (33.0-36.5); MEAN CORPUSCULAR VOLUME 81.3 FL (78-98); MONOCYTES # (AUTO) 0.7 X10'3 (0-0.9); MONOCYTES % (AUTO) 4.5 % (2-12); NEUTROPHILS # (AUTO) 14.7 X10'3 (1.8-7.7); NEUTROPHILS % (AUTO) 90.6 % (42-75); PLATELET COUNT 168 X10'3 (140-440); RED BLOOD COUNT 3.27 X10'6 (4.70-6.10); RED CELL DISTRIBUTION WIDTH 14.5 % (11.5-14.5); WHITE BLOOD COUNT 16.3 X10'3 (4.5-11.0)
[2018-09-18] MEDS: ipratropium/albuterol 3ml nebule NEB SCH ×6 (03:36→23:31)
[2018-09-18 03:41] LABS: ALANINE AMINOTRANSFERASE 43 U/L (12-78); ALBUMIN 1.8 G/DL (3.4-5.0); ALBUMIN/GLOBULIN RATIO 0.5 (1.1-1.5); ALKALINE PHOSPHATASE 72 IU/L (46-116); ANION GAP 9 (8-16); ASPARTATE AMINO TRANSFERASE 29 U/L (10-37); BILIRUBIN,TOTAL 0.6 MG/DL (0.1-1.0); BLOOD UREA NITROGEN 46 MG/DL (7-18); BUN/CREATININE RATIO 31.9 (5.4-32.0); CALCIUM 7.6 MG/DL (8.5-10.1); CHLORIDE 105 MMOL/L (99-107); CREATININE 1.44 MG/DL (0.60-1.10); GLUCOSE 183 MG/DL (70-104); MAGNESIUM 1.6 MG/DL (1.5-2.4); PHOSPHORUS 3.3 MG/DL (2.3-4.5); POTASSIUM 3.3 MMOL/L (3.5-5.1); SODIUM 144 MMOL/L (135-145); TOTAL CARBON DIOXIDE 30.5 MMOL/L (24-32); TOTAL PROTEIN 5.3 G/DL (6.4-8.2); eGFR 50 ML/MIN
[2018-09-18] MEDS ORDERED: potassium Cl 40MEQ/NS 500ml 500 ML IV PRN (04:35)
[2018-09-18 04:49] LABS: TOTAL CELLS COUNTED 100
[2018-09-18 04:50] LABS: PLATELET ESTIMATE NORMAL; TOXIC GRANULATION 2+
[2018-09-18] MEDS: potassium Cl 40MEQ/NS 500ml 500 ML IV PRN (05:18)
[2018-09-18] MEDS: lactobacillus rhamnosus 10,000 MMU CELLS/CAPSULE PO SCH ×3 (08:00→20:13)
[2018-09-18] MEDS: cloNIDine 0.1 mg tablet PO SCH ×3 (08:00→20:13)
[2018-09-18] MEDS: amLODIPine 5mg tablet PO SCH ×2 (08:00→11:26)
[2018-09-18] MEDS: hydrALAZINE 25 MG tablet PO SCH ×3 (08:00→20:00)
[2018-09-18] MEDS: clopidogrel 75mg tablet PO SCH ×2 (08:00→11:20)
[2018-09-18] MEDS: docusate sodium 100mg/10ml UD cup PO SCH ×3 (08:00→20:14)
[2018-09-18] MEDS: multivitamins, therapeutics tablet PO SCH ×2 (08:00→11:19)
[2018-09-18] MEDS: rivaroxaban 20mg tablet OGT SCH ×2 (08:00→11:20)
[2018-09-18] MEDS: aspirin 325mg tablet PO SCH ×2 (08:00→11:23)
[2018-09-18] MEDS: hydrocortisone sod succ/PF 100mg/2ml inj. IV SCH (08:47)
[2018-09-18] MEDS: furosemide 40mg/4ml inj IV SCH (08:47)
[2018-09-18] MEDS: famotidine/PF 10 mg/ml inj IV SCH ×2 (08:47→20:14)
[2018-09-18] MEDS: insulin regular, human vial - multi-dose SQ SCH ×4 (08:49→20:34)
[2018-09-18] MEDS: HYDROmorphone 1 mg/ml syringe IV PRN ×4 (08:55→23:39)
[2018-09-18] MEDS: vancomycin/NS 1 GM ADD-VANTAGE 250 ML IV SCH ×2 (10:46→22:47)
[2018-09-18] MEDS: citalopram 20mg tablet PO SCH (11:29)
[2018-09-18] MEDS: HYDROcodone/acetaminophen 5mg/325mg tablet PO PRN (16:28)
[2018-09-18] MEDS: LORazepam 0.5 MG tablet PO PRN (20:13)
[2018-09-18] MEDS: atorvastatin 20mg tablet PO SCH (20:13)
[2018-09-18] MEDS: insulin glargine (Lantus) pen - multi-dose SQ SCH (20:35)
[2018-09-19] VITALS (24 sets, daily range): BP systolic 107–162; BP diastolic 52–90
[2018-09-19] MEDS: insulin regular, human vial - multi-dose SQ SCH ×2 (01:58→20:31)
[2018-09-19] MEDS: ipratropium/albuterol 3ml nebule NEB SCH ×6 (03:30→22:36)
[2018-09-19 03:38] LABS: BASOPHILS % (AUTO) 0.1 % (0-1); EOSINOPHILS # (AUTO) 0.3 X10'3 (0-0.9); EOSINOPHILS % (AUTO) 2.3 % (0-6); HEMATOCRIT 25.8 % (42.0-52.0); HEMOGLOBIN 8.4 g/dl (14.0-17.9); LYMPHOCYTES # (AUTO) 0.5 X10'3 (1.1-4.8); MEAN CORPUSCULAR HEMOGLOBIN 26.4 PG (27.0-31.0); MEAN CORPUSCULAR HGB CONC 32.5 % (33.0-36.5); MEAN CORPUSCULAR VOLUME 81.3 FL (78-98); MEAN PLATELET VOLUME 9.1 FL (7.4-10.4); MONOCYTES # (AUTO) 0.6 X10'3 (0-0.9); MONOCYTES % (AUTO) 4.8 % (2-12); NEUTROPHILS # (AUTO) 10.7 X10'3 (1.8-7.7); NEUTROPHILS % (AUTO) 88.8 % (42-75); PLATELET COUNT 185 X10'3 (140-440); RED BLOOD COUNT 3.18 X10'6 (4.70-6.10); WHITE BLOOD COUNT 12.1 X10'3 (4.5-11.0)
[2018-09-19 03:58] LABS: ALANINE AMINOTRANSFERASE 35 U/L (12-78); ALBUMIN 1.7 G/DL (3.4-5.0); ALBUMIN/GLOBULIN RATIO 0.5 (1.1-1.5); ALKALINE PHOSPHATASE 65 IU/L (46-116); ANION GAP 6 (8-16); ASPARTATE AMINO TRANSFERASE 29 U/L (10-37); BILIRUBIN,TOTAL 0.5 MG/DL (0.1-1.0); BLOOD UREA NITROGEN 48 MG/DL (7-18); BUN/CREATININE RATIO 35.3 (5.4-32.0); CALCIUM 7.6 MG/DL (8.5-10.1); CHLORIDE 109 MMOL/L (99-107); CREATININE 1.36 MG/DL (0.60-1.10); GLUCOSE 150 MG/DL (70-104); MAGNESIUM 1.8 MG/DL (1.5-2.4); POTASSIUM 3.3 MMOL/L (3.5-5.1); SODIUM 147 MMOL/L (135-145); TOTAL CARBON DIOXIDE 31.9 MMOL/L (24-32); TOTAL PROTEIN 5.2 G/DL (6.4-8.2); eGFR 53 ML/MIN
[2018-09-19] MEDS ORDERED: furosemide 40mg/4ml inj IV ONE (04:30)
[2018-09-19] MEDS: HYDROmorphone 1 mg/ml syringe IV PRN ×3 (04:36→15:05)
[2018-09-19 04:40] LABS: ABG HCO3 29.7 mmol/L (22.0-26.0); ABG OXYGEN SATURATION 83.2 % (95-98); ABG PCO2 (T) 51.1 mmHg (35.0-48.0); ABG PH (T) 7.383 (7.350-7.450); ABG PO2 (T) 48.9 mmHg (83-108); ALLEN'S TEST Positive; FCOHb 0.1 % (0.5-1.5); FMetHb 0.1 % (0.3-1.12); PATIENT TEMPERATURE 37.2; TOTAL HEMOGLOBIN 9.7 G/dl (14.0-18.0)
[2018-09-19] MEDS: clopidogrel 75mg tablet PO SCH (07:44)
[2018-09-19] MEDS: multivitamins, therapeutics tablet PO SCH (07:44)
[2018-09-19] MEDS: docusate sodium 100mg/10ml UD cup PO SCH ×2 (07:44→19:35)
[2018-09-19] MEDS: cloNIDine 0.1 mg tablet PO SCH ×2 (07:45→20:00)
[2018-09-19] MEDS: amLODIPine 5mg tablet PO SCH (07:45)
[2018-09-19] MEDS: aspirin 325mg tablet PO SCH (07:45)
[2018-09-19] MEDS: famotidine/PF 10 mg/ml inj IV SCH ×2 (07:45→19:34)
[2018-09-19] MEDS: rivaroxaban 20mg tablet OGT SCH (07:45)
[2018-09-19] MEDS: lactobacillus rhamnosus 10,000 MMU CELLS/CAPSULE PO SCH ×2 (07:45→19:35)
[2018-09-19] MEDS: hydrocortisone sod succ/PF 100mg/2ml inj. IV SCH (07:46)
[2018-09-19] MEDS: hydrALAZINE 25 MG tablet PO SCH ×2 (07:46→20:00)
[2018-09-19] MEDS: potassium Cl 40MEQ/NS 500ml 500 ML IV PRN (07:59)
[2018-09-19] MEDS: LORazepam 0.5 MG tablet PO PRN ×2 (08:09→12:56)
[2018-09-19] MEDS ORDERED: cefepime 1GM/NS ADD-VANTAGE 100 ML IV SCH (08:10)
[2018-09-19 08:51] LABS: ABG BASE EXCESS 3.3 mmol/L (-2.0-3.0); ABG HCO3 30.4 mmol/L (22.0-26.0); ABG OXYGEN SATURATION 81.7 % (95-98); ABG PCO2 (T) 59.3 mmHg (35.0-48.0); ABG PH (T) 7.327 (7.350-7.450); ABG PO2 (T) 49.4 mmHg (83-108); ALLEN'S TEST Positive; FCOHb 0.3 % (0.5-1.5); FMetHb 0.2 % (0.3-1.12); FO2Hb 81.3 % (94-100); MINUTE VOLUME 16 L/min; RESPIRATORY RATE 18 b/min; RESPIRATORY RATE (OBSERVED) 34 b/min; TOTAL HEMOGLOBIN 10.5 G/dl (14.0-18.0)
[2018-09-19] MEDS ORDERED: furosemide 10 MG/1 ML 10ml inj IV STA (09:18)
[2018-09-19] MEDS ORDERED: furosemide 40mg/4ml inj ONE (09:20)
[2018-09-19] MEDS: vancomycin/NS 1 GM ADD-VANTAGE 250 ML IV SCH ×2 (10:43→23:30)
[2018-09-19] MEDS: meropenem inj 500 MG in normal saline 100ml IV soln 100 ML IV SCH ×3 (10:43→19:34)
[2018-09-19] MEDS ORDERED: furosemide 10 MG/1 ML 10ml inj IV ONE (11:05)
[2018-09-19] MEDS: potassium Cl oral solution 20 MEQ/15 ML PO PRN ×4 (11:26→19:35)
[2018-09-19] MEDS ORDERED: etomidate 2mg/ml inj. ONE (13:00)
[2018-09-19] MEDS ORDERED: sod chloride 0.9% 10ml flush syringe IV ONE (13:00)
[2018-09-19 15:35] LABS: ABG BASE EXCESS 1.7 mmol/L (-2.0-3.0); ABG HCO3 27.5 mmol/L (22.0-26.0); ABG OXYGEN SATURATION 75.6 % (95-98); ABG PCO2 (T) 49.2 mmHg (35.0-48.0); ABG PH (T) 7.366 (7.350-7.450); ABG PO2 (T) 40.5 mmHg (83-108); FCOHb 0.3 % (0.5-1.5); FMetHb 0.2 % (0.3-1.12); FO2Hb 75.2 % (94-100); MINUTE VOLUME 26 L/min; RESPIRATORY RATE 12 b/min; RESPIRATORY RATE (OBSERVED) 29 b/min
[2018-09-19] MEDS ORDERED: MIDAZolam 5mg/ml 2ml vial ONE (15:49)
[2018-09-19] MEDS ORDERED: fentaNYL/PF 50MCG/1 ML 2ML syringe IV PRN (15:55)
[2018-09-19] MEDS ORDERED: ipratropium/albuterol 3ml nebule NEB PRN (15:55)
[2018-09-19] MEDS ORDERED: midazolam 2 mg/2 ml injection IV ONE (15:55)
[2018-09-19] MEDS: midazolam 100mg in NS 100ml 100 ML IV PRN (16:28)
[2018-09-19] MEDS: FENTANYL-0.9 % NACL/PF 100 ML IV PRN (16:28)
[2018-09-19 17:41] LABS: ABG BASE EXCESS 3.7 mmol/L (-2.0-3.0); ABG HCO3 28.9 mmol/L (22.0-26.0); ABG OXYGEN SATURATION 81.5 % (95-98); ABG PCO2 (T) 46.7 mmHg (35.0-48.0); ABG PH (T) 7.409 (7.350-7.450); ABG PO2 (T) 45.2 mmHg (83-108); FCOHb 0.3 % (0.5-1.5); FMetHb 0.2 % (0.3-1.12); FO2Hb 81.1 % (94-100); MINUTE VOLUME 9 L/min; PEEP 10 cm H2O; RESPIRATORY RATE 20 b/min; RESPIRATORY RATE (OBSERVED) 20 b/min; TIDAL VOLUME 400 mL; TOTAL HEMOGLOBIN 9.8 G/dl (14.0-18.0)
[2018-09-19 18:46] LABS: ABG BASE EXCESS 5.1 mmol/L (-2.0-3.0); ABG HCO3 30.2 mmol/L (22.0-26.0); ABG OXYGEN SATURATION 90.2 % (95-98); ABG PH (T) 7.397 (7.350-7.450); ABG PO2 (T) 63.6 mmHg (83-108); FCOHb 0.3 % (0.5-1.5); FMetHb 0.1 % (0.3-1.12); FO2Hb 89.8 % (94-100); MINUTE VOLUME 10 L/min; PATIENT TEMPERATURE 38.5; PEEP 15 cm H2O; RESPIRATORY RATE 20 b/min; RESPIRATORY RATE (OBSERVED) 22 b/min; TIDAL VOLUME 400 mL; TOTAL HEMOGLOBIN 9.5 G/dl (14.0-18.0)
[2018-09-19] MEDS ORDERED: acetaminophen 325mg/10.15ml oral unit dose solution PO PRN (19:07)
[2018-09-19] MEDS: furosemide 10 MG/1 ML 10ml inj IV SCH ×2 (19:34→20:00)
[2018-09-19] MEDS: acetaminophen 325mg/10.15ml oral unit dose solution PO PRN (19:35)
[2018-09-19] MEDS: insulin glargine (Lantus) pen - multi-dose SQ SCH (20:32)
[2018-09-19] MEDS: atorvastatin 20mg tablet PO SCH (21:24)
[2018-09-19] MEDS ORDERED: VANCOMYCIN LEVEL IV ONE (22:30)
[2018-09-20] VITALS (23 sets, daily range): BP systolic 98–154; BP diastolic 52–69
[2018-09-20] MEDS: meropenem inj 500 MG in normal saline 100ml IV soln 100 ML IV SCH ×4 (02:23→20:11)
[2018-09-20] MEDS: furosemide 10 MG/1 ML 10ml inj IV SCH ×4 (02:26→20:12)
[2018-09-20] MEDS: insulin regular, human vial - multi-dose SQ SCH ×4 (02:57→20:38)
[2018-09-20 03:10] LABS: BASOPHILS % (AUTO) 0 % (0-1); EOSINOPHILS # (AUTO) 0.2 X10'3 (0-0.9); HEMATOCRIT 25.2 % (42.0-52.0); HEMOGLOBIN 8.1 g/dl (14.0-17.9); LYMPHOCYTES # (AUTO) 0.6 X10'3 (1.1-4.8); LYMPHOCYTES % (AUTO) 7.1 % (21-51); MEAN CORPUSCULAR HEMOGLOBIN 26.4 PG (27.0-31.0); MEAN CORPUSCULAR HGB CONC 32.2 % (33.0-36.5); MEAN PLATELET VOLUME 8.8 FL (7.4-10.4); MONOCYTES # (AUTO) 0.4 X10'3 (0-0.9); MONOCYTES % (AUTO) 4.5 % (2-12); NEUTROPHILS # (AUTO) 7.6 X10'3 (1.8-7.7); NEUTROPHILS % (AUTO) 86.4 % (42-75); PLATELET COUNT 194 X10'3 (140-440); RED BLOOD COUNT 3.08 X10'6 (4.70-6.10); RED CELL DISTRIBUTION WIDTH 15.4 % (11.5-14.5); WHITE BLOOD COUNT 8.8 X10'3 (4.5-11.0)
[2018-09-20] MEDS: ipratropium/albuterol 3ml nebule NEB SCH ×6 (03:10→23:40)
[2018-09-20 03:17] LABS: ALANINE AMINOTRANSFERASE 26 U/L (12-78); ALBUMIN 1.6 G/DL (3.4-5.0); ALBUMIN/GLOBULIN RATIO 0.4 (1.1-1.5); ALKALINE PHOSPHATASE 58 IU/L (46-116); ANION GAP 7 (8-16); ASPARTATE AMINO TRANSFERASE 18 U/L (10-37); BILIRUBIN,TOTAL 0.5 MG/DL (0.1-1.0); BLOOD UREA NITROGEN 50 MG/DL (7-18); BUN/CREATININE RATIO 34.2 (5.4-32.0); CALCIUM 7.9 MG/DL (8.5-10.1); CHLORIDE 110 MMOL/L (99-107); CREATININE 1.46 MG/DL (0.60-1.10); GLUCOSE 190 MG/DL (70-104); PHOSPHORUS 2.5 MG/DL (2.3-4.5); POTASSIUM 3.4 MMOL/L (3.5-5.1); PREALBUMIN 14.8 MG/DL (19-36); SODIUM 149 MMOL/L (135-145); TOTAL CARBON DIOXIDE 32.3 MMOL/L (24-32); TOTAL PROTEIN 5.2 G/DL (6.4-8.2); eGFR 49 ML/MIN
[2018-09-20 03:26] LABS: ABG BASE EXCESS 3.9 mmol/L (-2.0-3.0); ABG HCO3 28.5 mmol/L (22.0-26.0); ABG OXYGEN SATURATION 93.8 % (95-98); ABG PCO2 (T) 45.7 mmHg (35.0-48.0); ABG PH (T) 7.418 (7.350-7.450); ABG PO2 (T) 75.6 mmHg (83-108); FCOHb 0.3 % (0.5-1.5); FO2Hb 93.5 % (94-100); MINUTE VOLUME 9 L/min; PATIENT TEMPERATURE 38.4; PEEP 15 cm H2O; RESPIRATORY RATE 20 b/min; RESPIRATORY RATE (OBSERVED) 20 b/min; TIDAL VOLUME 400 mL; TOTAL HEMOGLOBIN 8.9 G/dl (14.0-18.0)
[2018-09-20] MEDS: potassium Cl oral solution 20 MEQ/15 ML PO PRN ×3 (04:56→12:40)
[2018-09-20] MEDS: diltiazem CD 120mg capsule (once-daily) PO SCH (07:48)
[2018-09-20] MEDS: hydrALAZINE 25 MG tablet PO SCH ×2 (07:49→19:46)
[2018-09-20] MEDS: cloNIDine 0.1 mg tablet PO SCH ×2 (08:00→20:12)
[2018-09-20] MEDS: FENTANYL-0.9 % NACL/PF 100 ML IV PRN ×2 (08:40→21:58)
[2018-09-20] MEDS: aspirin 325mg tablet PO SCH (08:42)
[2018-09-20] MEDS: clopidogrel 75mg tablet PO SCH (08:42)
[2018-09-20] MEDS: hydrocortisone sod succ/PF 100mg/2ml inj. IV SCH (08:42)
[2018-09-20] MEDS: rivaroxaban 20mg tablet OGT SCH (08:42)
[2018-09-20] MEDS: famotidine/PF 10 mg/ml inj IV SCH ×2 (08:42→20:12)
[2018-09-20] MEDS: lactobacillus rhamnosus 10,000 MMU CELLS/CAPSULE PO SCH ×2 (08:42→20:12)
[2018-09-20] MEDS: citalopram 20mg tablet PO SCH (08:42)
[2018-09-20] MEDS: multivitamin oral liquid (Certavite) 5ml cup PO SCH (08:43)
[2018-09-20] MEDS: docusate sodium 100mg/10ml UD cup PO SCH ×2 (08:43→20:12)
[2018-09-20] MEDS: methylnaltrexone br 12mg/0.6ml inj***SubQ only SQ SCH (09:26)
[2018-09-20] MEDS: VANCOMYCIN 750MG IV in NS 250 ML IV SCH ×2 (14:35→23:49)
[2018-09-20] MEDS: midazolam 100mg in NS 100ml 100 ML IV PRN (15:48)
[2018-09-20] MEDS: mineral oil/petrolatum ophthal oint EACHEYE SCH (20:13)
[2018-09-20] MEDS: atorvastatin 20mg tablet PO SCH (20:23)
[2018-09-20] MEDS: insulin glargine (Lantus) pen - multi-dose SQ SCH (20:37)
[2018-09-20] MEDS ORDERED: VANCOMYCIN LEVEL IV ONE (23:30)
[2018-09-21] VITALS (24 sets, daily range): BP systolic 95–157; BP diastolic 48–76
[2018-09-21] MEDS: meropenem inj 500 MG in normal saline 100ml IV soln 100 ML IV SCH ×4 (01:23→20:06)
[2018-09-21] MEDS: furosemide 10 MG/1 ML 10ml inj IV SCH ×4 (01:23→20:05)
[2018-09-21] MEDS: mineral oil/petrolatum ophthal oint EACHEYE SCH ×4 (01:25→20:06)
[2018-09-21] MEDS: insulin regular, human vial - multi-dose SQ SCH ×4 (01:35→20:18)
[2018-09-21 01:56] LABS: BASOPHILS % (AUTO) 0.1 % (0-1); EOSINOPHILS # (AUTO) 0.3 X10'3 (0-0.9); EOSINOPHILS % (AUTO) 3.8 % (0-6); HEMATOCRIT 24.4 % (42.0-52.0); HEMOGLOBIN 7.9 g/dl (14.0-17.9); LYMPHOCYTES # (AUTO) 0.4 X10'3 (1.1-4.8); LYMPHOCYTES % (AUTO) 4.8 % (21-51); MEAN CORPUSCULAR HEMOGLOBIN 26.5 PG (27.0-31.0); MEAN CORPUSCULAR HGB CONC 32.5 % (33.0-36.5); MEAN CORPUSCULAR VOLUME 81.5 FL (78-98); MEAN PLATELET VOLUME 8.5 FL (7.4-10.4); MONOCYTES # (AUTO) 0.4 X10'3 (0-0.9); MONOCYTES % (AUTO) 4.2 % (2-12); NEUTROPHILS # (AUTO) 7.7 X10'3 (1.8-7.7); NEUTROPHILS % (AUTO) 87.1 % (42-75); PLATELET COUNT 189 X10'3 (140-440); RED BLOOD COUNT 2.99 X10'6 (4.70-6.10); RED CELL DISTRIBUTION WIDTH 15.5 % (11.5-14.5); WHITE BLOOD COUNT 8.9 X10'3 (4.5-11.0)
[2018-09-21 02:10] LABS: ALANINE AMINOTRANSFERASE 25 U/L (12-78); ALBUMIN 1.8 G/DL (3.4-5.0); ALBUMIN/GLOBULIN RATIO 0.5 (1.1-1.5); ALKALINE PHOSPHATASE 60 IU/L (46-116); ANION GAP 5 (8-16); ASPARTATE AMINO TRANSFERASE 14 U/L (10-37); BILIRUBIN,TOTAL 0.5 MG/DL (0.1-1.0); BLOOD UREA NITROGEN 44 MG/DL (7-18); BUN/CREATININE RATIO 35.5 (5.4-32.0); CALCIUM 7.8 MG/DL (8.5-10.1); CHLORIDE 109 MMOL/L (99-107); CREATININE 1.24 MG/DL (0.60-1.10); GLUCOSE 230 MG/DL (70-104); MAGNESIUM 1.8 MG/DL (1.5-2.4); PHOSPHORUS 2.3 MG/DL (2.3-4.5); POTASSIUM 3.2 MMOL/L (3.5-5.1); SODIUM 149 MMOL/L (135-145); TOTAL CARBON DIOXIDE 35.3 MMOL/L (24-32); TOTAL PROTEIN 5.5 G/DL (6.4-8.2); eGFR 59 ML/MIN
[2018-09-21] MEDS: potassium Cl oral solution 20 MEQ/15 ML PO PRN ×5 (02:38→20:06)
[2018-09-21] MEDS: ipratropium/albuterol 3ml nebule NEB SCH ×6 (03:54→22:30)
[2018-09-21 05:06] LABS: ABG BASE EXCESS 6.4 mmol/L (-2.0-3.0); ABG HCO3 30.8 mmol/L (22.0-26.0); ABG OXYGEN SATURATION 97.1 % (95-98); ABG PCO2 (T) 43.2 mmHg (35.0-48.0); ABG PO2 (T) 97.2 mmHg (83-108); FCOHb 0.3 % (0.5-1.5); FMetHb 0.4 % (0.3-1.12); FO2Hb 96.4 % (94-100); MINUTE VOLUME 10 L/min; PATIENT TEMPERATURE 36.7; PEEP 14 cm H2O; RESPIRATORY RATE 20 b/min; RESPIRATORY RATE (OBSERVED) 20 b/min; TIDAL VOLUME 400 mL; TOTAL HEMOGLOBIN 8.5 G/dl (14.0-18.0)
[2018-09-21] MEDS: multivitamin oral liquid (Certavite) 5ml cup PO SCH (07:24)
[2018-09-21] MEDS: famotidine/PF 10 mg/ml inj IV SCH ×2 (07:24→20:05)
[2018-09-21] MEDS: hydrocortisone sod succ/PF 100mg/2ml inj. IV SCH (07:24)
[2018-09-21] MEDS: docusate sodium 100mg/10ml UD cup PO SCH ×2 (07:24→20:05)
[2018-09-21] MEDS: cloNIDine 0.1 mg tablet PO SCH ×2 (07:25→20:06)
[2018-09-21] MEDS: rivaroxaban 20mg tablet OGT SCH (07:26)
[2018-09-21] MEDS: clopidogrel 75mg tablet PO SCH (07:26)
[2018-09-21] MEDS: diltiazem CD 120mg capsule (once-daily) PO SCH (07:26)
[2018-09-21] MEDS: aspirin 325mg tablet PO SCH (07:26)
[2018-09-21] MEDS: citalopram 20mg tablet PO SCH (07:26)
[2018-09-21] MEDS: lactobacillus rhamnosus 10,000 MMU CELLS/CAPSULE PO SCH ×2 (07:26→20:06)
[2018-09-21] MEDS: hydrALAZINE 25 MG tablet PO SCH ×2 (08:00→20:00)
[2018-09-21] MEDS: FENTANYL-0.9 % NACL/PF 100 ML IV PRN (12:50)
[2018-09-21] MEDS: midazolam 100mg in NS 100ml 100 ML IV PRN (12:51)
[2018-09-21] MEDS: atorvastatin 20mg tablet PO SCH (20:06)
[2018-09-21] MEDS: insulin glargine (Lantus) pen - multi-dose SQ SCH (20:17)
[2018-09-22] VITALS (23 sets, daily range): BP systolic 103–145; BP diastolic 50–66
[2018-09-22] MEDS: potassium Cl oral solution 20 MEQ/15 ML PO PRN (00:10)
[2018-09-22] MEDS: meropenem inj 500 MG in normal saline 100ml IV soln 100 ML IV SCH ×4 (01:38→20:05)
[2018-09-22] MEDS: furosemide 10 MG/1 ML 10ml inj IV SCH ×4 (01:38→20:05)
[2018-09-22] MEDS: FENTANYL-0.9 % NACL/PF 100 ML IV PRN ×2 (01:38→18:46)
[2018-09-22] MEDS: mineral oil/petrolatum ophthal oint EACHEYE SCH ×4 (01:38→20:05)
[2018-09-22] MEDS: insulin regular, human vial - multi-dose SQ SCH ×4 (01:57→20:20)
[2018-09-22] MEDS: ipratropium/albuterol 3ml nebule NEB SCH ×6 (02:35→22:27)
[2018-09-22 02:48] LABS: BASOPHILS % (AUTO) 0.3 % (0-1); EOSINOPHILS # (AUTO) 0.4 X10'3 (0-0.9); EOSINOPHILS % (AUTO) 5.1 % (0-6); HEMATOCRIT 22.9 % (42.0-52.0); HEMOGLOBIN 7.4 g/dl (14.0-17.9); LYMPHOCYTES # (AUTO) 0.5 X10'3 (1.1-4.8); LYMPHOCYTES % (AUTO) 6.4 % (21-51); MEAN CORPUSCULAR HEMOGLOBIN 26.4 PG (27.0-31.0); MEAN CORPUSCULAR HGB CONC 32.5 % (33.0-36.5); MEAN CORPUSCULAR VOLUME 81.2 FL (78-98); MEAN PLATELET VOLUME 8.6 FL (7.4-10.4); MONOCYTES # (AUTO) 0.4 X10'3 (0-0.9); MONOCYTES % (AUTO) 5.2 % (2-12); NEUTROPHILS # (AUTO) 6.1 X10'3 (1.8-7.7); PLATELET COUNT 195 X10'3 (140-440); RED BLOOD COUNT 2.82 X10'6 (4.70-6.10); RED CELL DISTRIBUTION WIDTH 15.3 % (11.5-14.5); WHITE BLOOD COUNT 7.3 X10'3 (4.5-11.0)
[2018-09-22 03:09] LABS: ALANINE AMINOTRANSFERASE 24 U/L (12-78); ALBUMIN 1.7 G/DL (3.4-5.0); ALBUMIN/GLOBULIN RATIO 0.5 (1.1-1.5); ALKALINE PHOSPHATASE 60 IU/L (46-116); ANION GAP 5 (8-16); ASPARTATE AMINO TRANSFERASE 14 U/L (10-37); BILIRUBIN,TOTAL 0.5 MG/DL (0.1-1.0); BLOOD UREA NITROGEN 49 MG/DL (7-18); BUN/CREATININE RATIO 42.6 (5.4-32.0); CALCIUM 7.8 MG/DL (8.5-10.1); CHLORIDE 109 MMOL/L (99-107); CREATININE 1.15 MG/DL (0.60-1.10); GLUCOSE 99 MG/DL (70-104); PHOSPHORUS 2.9 MG/DL (2.3-4.5); POTASSIUM 4.2 MMOL/L (3.5-5.1); SODIUM 149 MMOL/L (135-145); TOTAL CARBON DIOXIDE 35.5 MMOL/L (24-32); TOTAL PROTEIN 5.4 G/DL (6.4-8.2); eGFR 64 ML/MIN
[2018-09-22 03:25] LABS: ABG BASE EXCESS 10.3 mmol/L (-2.0-3.0); ABG HCO3 34.8 mmol/L (22.0-26.0); ABG OXYGEN SATURATION 91.5 % (95-98); ABG PCO2 (T) 47.2 mmHg (35.0-48.0); ABG PH (T) 7.486 (7.350-7.450); ABG PO2 (T) 57.8 mmHg (83-108); FCOHb 0.3 % (0.5-1.5); FMetHb 0.2 % (0.3-1.12); MINUTE VOLUME 11 L/min; PEEP 10 cm H2O; RESPIRATORY RATE 20 b/min; RESPIRATORY RATE (OBSERVED) 24 b/min; TIDAL VOLUME 400 mL; TOTAL HEMOGLOBIN 8.6 G/dl (14.0-18.0)
[2018-09-22] MEDS: hydrocortisone sod succ/PF 100mg/2ml inj. IV SCH (07:28)
[2018-09-22] MEDS: midazolam 100mg in NS 100ml 100 ML IV PRN (07:28)
[2018-09-22] MEDS: methylnaltrexone br 12mg/0.6ml inj***SubQ only SQ SCH (07:28)
[2018-09-22] MEDS: aspirin 325mg tablet PO SCH (07:29)
[2018-09-22] MEDS: clopidogrel 75mg tablet PO SCH (07:29)
[2018-09-22] MEDS: diltiazem CD 120mg capsule (once-daily) PO SCH (07:29)
[2018-09-22] MEDS: cloNIDine 0.1 mg tablet PO SCH ×2 (07:29→20:05)
[2018-09-22] MEDS: famotidine/PF 10 mg/ml inj IV SCH ×2 (07:29→20:05)
[2018-09-22] MEDS: multivitamin oral liquid (Certavite) 5ml cup PO SCH (07:29)
[2018-09-22] MEDS: citalopram 20mg tablet PO SCH (07:29)
[2018-09-22] MEDS: rivaroxaban 20mg tablet OGT SCH (07:29)
[2018-09-22] MEDS: lactobacillus rhamnosus 10,000 MMU CELLS/CAPSULE PO SCH ×2 (07:29→20:05)
[2018-09-22] MEDS: docusate sodium 100mg/10ml UD cup PO SCH ×2 (07:29→20:05)
[2018-09-22] MEDS: hydrALAZINE 25 MG tablet PO SCH ×2 (08:00→20:00)
[2018-09-22 15:51] LABS: ABG BASE EXCESS 10.5 mmol/L (-2.0-3.0); ABG HCO3 35.1 mmol/L (22.0-26.0); ABG OXYGEN SATURATION 93.3 % (95-98); ABG PCO2 (T) 48.5 mmHg (35.0-48.0); ABG PH (T) 7.478 (7.350-7.450); ABG PO2 (T) 66.9 mmHg (83-108); FCOHb 0.2 % (0.5-1.5); FMetHb 0.2 % (0.3-1.12); FO2Hb 92.9 % (94-100); MINUTE VOLUME 9 L/min; PEEP 8 cm H2O; RESPIRATORY RATE 20 b/min; RESPIRATORY RATE (OBSERVED) 20 b/min; TIDAL VOLUME 400 mL; TOTAL HEMOGLOBIN 8.8 G/dl (14.0-18.0)
[2018-09-22] MEDS: atorvastatin 20mg tablet PO SCH (20:05)
[2018-09-22] MEDS: insulin glargine (Lantus) pen - multi-dose SQ SCH (20:21)
[2018-09-23] VITALS (24 sets, daily range): BP systolic 76–156; BP diastolic 50–73
[2018-09-23] MEDS: furosemide 10 MG/1 ML 10ml inj IV SCH ×4 (02:13→20:07)
[2018-09-23] MEDS: meropenem inj 500 MG in normal saline 100ml IV soln 100 ML IV SCH ×4 (02:13→20:07)
[2018-09-23] MEDS: mineral oil/petrolatum ophthal oint EACHEYE SCH ×4 (02:13→20:07)
[2018-09-23] MEDS: insulin regular, human vial - multi-dose SQ SCH ×4 (02:15→20:56)
[2018-09-23] MEDS: ipratropium/albuterol 3ml nebule NEB SCH ×6 (02:31→22:30)
[2018-09-23 02:48] LABS: ALANINE AMINOTRANSFERASE 23 U/L (12-78); ALBUMIN 1.8 G/DL (3.4-5.0); ALBUMIN/GLOBULIN RATIO 0.5 (1.1-1.5); ALKALINE PHOSPHATASE 57 IU/L (46-116); ANION GAP 6 (8-16); ASPARTATE AMINO TRANSFERASE 14 U/L (10-37); BILIRUBIN,TOTAL 0.5 MG/DL (0.1-1.0); BLOOD UREA NITROGEN 55 MG/DL (7-18); CALCIUM 8.2 MG/DL (8.5-10.1); CHLORIDE 104 MMOL/L (99-107); GLUCOSE 127 MG/DL (70-104); MAGNESIUM 2.1 MG/DL (1.5-2.4); PHOSPHORUS 3.8 MG/DL (2.3-4.5); POTASSIUM 3.9 MMOL/L (3.5-5.1); SODIUM 145 MMOL/L (135-145); TOTAL CARBON DIOXIDE 35.5 MMOL/L (24-32); TOTAL PROTEIN 5.7 G/DL (6.4-8.2); eGFR 68 ML/MIN
[2018-09-23 02:53] LABS: BASOPHILS % (AUTO) 0.5 % (0-1); EOSINOPHILS # (AUTO) 0.4 X10'3 (0-0.9); EOSINOPHILS % (AUTO) 6.6 % (0-6); HEMATOCRIT 24.2 % (42.0-52.0); HEMOGLOBIN 7.7 g/dl (14.0-17.9); LYMPHOCYTES # (AUTO) 0.5 X10'3 (1.1-4.8); LYMPHOCYTES % (AUTO) 8.6 % (21-51); MEAN CORPUSCULAR HEMOGLOBIN 25.9 PG (27.0-31.0); MEAN CORPUSCULAR HGB CONC 31.9 % (33.0-36.5); MEAN CORPUSCULAR VOLUME 81.1 FL (78-98); MEAN PLATELET VOLUME 8.4 FL (7.4-10.4); MONOCYTES # (AUTO) 0.3 X10'3 (0-0.9); MONOCYTES % (AUTO) 5.3 % (2-12); NEUTROPHILS # (AUTO) 4.8 X10'3 (1.8-7.7); PLATELET COUNT 218 X10'3 (140-440); RED BLOOD COUNT 2.99 X10'6 (4.70-6.10); RED CELL DISTRIBUTION WIDTH 15.1 % (11.5-14.5); WHITE BLOOD COUNT 6.1 X10'3 (4.5-11.0)
[2018-09-23 03:21] LABS: ABG BASE EXCESS 9.7 mmol/L (-2.0-3.0); ABG HCO3 34.2 mmol/L (22.0-26.0); ABG OXYGEN SATURATION 88.2 % (95-98); ABG PCO2 (T) 47.1 mmHg (35.0-48.0); ABG PH (T) 7.479 (7.350-7.450); ABG PO2 (T) 53.1 mmHg (83-108); FCOHb 0.4 % (0.5-1.5); FMetHb 0.3 % (0.3-1.12); FO2Hb 87.6 % (94-100); MINUTE VOLUME 11 L/min; PATIENT TEMPERATURE 37.2; PEEP 8 cm H2O; RESPIRATORY RATE 20 b/min; RESPIRATORY RATE (OBSERVED) 23 b/min; TIDAL VOLUME 400 mL; TOTAL HEMOGLOBIN 8.9 G/dl (14.0-18.0)
[2018-09-23] MEDS: midazolam 100mg in NS 100ml 100 ML IV PRN (04:51)
[2018-09-23] MEDS: aspirin 325mg tablet PO SCH (07:15)
[2018-09-23] MEDS: cloNIDine 0.1 mg tablet PO SCH ×2 (07:17→20:08)
[2018-09-23] MEDS: diltiazem CD 120mg capsule (once-daily) PO SCH (07:17)
[2018-09-23] MEDS: clopidogrel 75mg tablet PO SCH (07:17)
[2018-09-23] MEDS: docusate sodium 100mg/10ml UD cup PO SCH ×2 (07:17→20:07)
[2018-09-23] MEDS: lactobacillus rhamnosus 10,000 MMU CELLS/CAPSULE PO SCH ×2 (07:17→20:08)
[2018-09-23] MEDS: rivaroxaban 20mg tablet OGT SCH (07:17)
[2018-09-23] MEDS: famotidine/PF 10 mg/ml inj IV SCH ×2 (07:18→20:08)
[2018-09-23] MEDS: citalopram 20mg tablet PO SCH (07:18)
[2018-09-23] MEDS: hydrALAZINE 25 MG tablet PO SCH (08:02)
[2018-09-23] MEDS: multivitamin oral liquid (Certavite) 5ml cup PO SCH (08:02)
[2018-09-23] MEDS ORDERED: NORepinephrine 8mg/ 250ml NS 250 ML IV ONE (09:03)
[2018-09-23] MEDS: NORepinephrine 8mg/ 250ml NS 250 ML IV SCH (09:55)
[2018-09-23] MEDS: FENTANYL-0.9 % NACL/PF 100 ML IV PRN ×2 (12:53→23:19)
[2018-09-23] MEDS: atorvastatin 20mg tablet PO SCH (20:08)
[2018-09-23] MEDS: insulin glargine (Lantus) pen - multi-dose SQ SCH (20:35)
[2018-09-24] VITALS (24 sets, daily range): BP systolic 113–170; BP diastolic 50–75
[2018-09-24] MEDS: mineral oil/petrolatum ophthal oint EACHEYE SCH ×4 (01:14→19:21)
[2018-09-24] MEDS: meropenem inj 500 MG in normal saline 100ml IV soln 100 ML IV SCH ×4 (01:14→19:22)
[2018-09-24] MEDS: furosemide 10 MG/1 ML 10ml inj IV SCH ×2 (01:46→07:34)
[2018-09-24] MEDS: insulin regular, human vial - multi-dose SQ SCH ×4 (01:56→20:11)
[2018-09-24 02:20] LABS: BASOPHILS % (AUTO) 0.2 % (0-1); EOSINOPHILS # (AUTO) 0.4 X10'3 (0-0.9); EOSINOPHILS % (AUTO) 5.7 % (0-6); HEMATOCRIT 25.4 % (42.0-52.0); HEMOGLOBIN 8.4 g/dl (14.0-17.9); LYMPHOCYTES # (AUTO) 0.4 X10'3 (1.1-4.8); LYMPHOCYTES % (AUTO) 5.7 % (21-51); MEAN CORPUSCULAR HEMOGLOBIN 26.4 PG (27.0-31.0); MEAN CORPUSCULAR VOLUME 80.2 FL (78-98); MEAN PLATELET VOLUME 8.2 FL (7.4-10.4); MONOCYTES # (AUTO) 0.4 X10'3 (0-0.9); MONOCYTES % (AUTO) 5.2 % (2-12); NEUTROPHILS # (AUTO) 6.1 X10'3 (1.8-7.7); NEUTROPHILS % (AUTO) 83.2 % (42-75); PLATELET COUNT 274 X10'3 (140-440); RED BLOOD COUNT 3.17 X10'6 (4.70-6.10); RED CELL DISTRIBUTION WIDTH 15.3 % (11.5-14.5); WHITE BLOOD COUNT 7.3 X10'3 (4.5-11.0)
[2018-09-24 02:24] LABS: ALANINE AMINOTRANSFERASE 22 U/L (12-78); ALBUMIN 1.9 G/DL (3.4-5.0); ALBUMIN/GLOBULIN RATIO 0.4 (1.1-1.5); ALKALINE PHOSPHATASE 65 IU/L (46-116); ANION GAP 2 (8-16); ASPARTATE AMINO TRANSFERASE 17 U/L (10-37); BILIRUBIN,TOTAL 0.7 MG/DL (0.1-1.0); BLOOD UREA NITROGEN 51 MG/DL (7-18); BUN/CREATININE RATIO 44.3 (5.4-32.0); CALCIUM 8.5 MG/DL (8.5-10.1); CHLORIDE 101 MMOL/L (99-107); CREATININE 1.15 MG/DL (0.60-1.10); GLUCOSE 126 MG/DL (70-104); MAGNESIUM 2.1 MG/DL (1.5-2.4); PHOSPHORUS 4.1 MG/DL (2.3-4.5); POTASSIUM 4.2 MMOL/L (3.5-5.1); PREALBUMIN 18.2 MG/DL (19-36); SODIUM 142 MMOL/L (135-145); TOTAL CARBON DIOXIDE 38.8 MMOL/L (24-32); TOTAL PROTEIN 6.2 G/DL (6.4-8.2); eGFR 64 ML/MIN
[2018-09-24] MEDS: ipratropium/albuterol 3ml nebule NEB SCH ×6 (02:26→23:34)
[2018-09-24] MEDS: midazolam 100mg in NS 100ml 100 ML IV PRN ×2 (02:50→17:29)
[2018-09-24 03:46] LABS: ABG BASE EXCESS 11.4 mmol/L (-2.0-3.0); ABG HCO3 35.4 mmol/L (22.0-26.0); ABG OXYGEN SATURATION 90.2 % (95-98); ABG PCO2 (T) 47.4 mmHg (35.0-48.0); ABG PH (T) 7.496 (7.350-7.450); ABG PO2 (T) 61.4 mmHg (83-108); FCOHb 0.1 % (0.5-1.5); FMetHb 0.2 % (0.3-1.12); FO2Hb 89.9 % (94-100); MINUTE VOLUME 8 L/min; PATIENT TEMPERATURE 38.4; PEEP 8 cm H2O; RESPIRATORY RATE 20 b/min; RESPIRATORY RATE (OBSERVED) 21 b/min; TOTAL HEMOGLOBIN 9.1 G/dl (14.0-18.0)
[2018-09-24] MEDS: acetaminophen 325mg/10.15ml oral unit dose solution PO PRN (03:50)
[2018-09-24] MEDS ORDERED: normal saline 250ml IV soln 250 ML IV ONE (05:00)
[2018-09-24] MEDS ORDERED: normal saline 500ml IV soln 500 ML IV ONE (05:05)
[2018-09-24] MEDS: lactobacillus rhamnosus 10,000 MMU CELLS/CAPSULE PO SCH ×2 (07:32→19:21)
[2018-09-24] MEDS: docusate sodium 100mg/10ml UD cup PO SCH ×2 (07:32→19:21)
[2018-09-24] MEDS: multivitamin oral liquid (Certavite) 5ml cup PO SCH (07:32)
[2018-09-24] MEDS: famotidine/PF 10 mg/ml inj IV SCH ×2 (07:32→19:21)
[2018-09-24] MEDS: aspirin 325mg tablet PO SCH (07:32)
[2018-09-24] MEDS: clopidogrel 75mg tablet PO SCH (07:32)
[2018-09-24] MEDS: rivaroxaban 20mg tablet OGT SCH (07:32)
[2018-09-24] MEDS: cloNIDine 0.1 mg tablet PO SCH ×2 (07:33→19:21)
[2018-09-24] MEDS: methylnaltrexone br 12mg/0.6ml inj***SubQ only SQ SCH (07:33)
[2018-09-24] MEDS: citalopram 20mg tablet PO SCH (07:55)
[2018-09-24] MEDS ORDERED: furosemide inj 100 ML IV SCH (08:25)
[2018-09-24] MEDS: prednisone 10mg tablet PO SCH (09:18)
[2018-09-24 13:08] LABS: ALBUMIN 1.8 G/DL (3.4-5.0); ANION GAP 6 (8-16); BLOOD UREA NITROGEN 53 MG/DL (7-18); BUN/CREATININE RATIO 47.3 (5.4-32.0); CALCIUM 8.5 MG/DL (8.5-10.1); CHLORIDE 99 MMOL/L (99-107); CREATININE 1.12 MG/DL (0.60-1.10); GLUCOSE 109 MG/DL (70-104); MAGNESIUM 2.2 MG/DL (1.5-2.4); PHOSPHORUS 3.9 MG/DL (2.3-4.5); POTASSIUM 3.6 MMOL/L (3.5-5.1); SODIUM 141 MMOL/L (135-145); eGFR 66 ML/MIN
[2018-09-24] MEDS: FENTANYL-0.9 % NACL/PF 100 ML IV PRN (17:28)
[2018-09-24 18:16] LABS: ALBUMIN 1.5 G/DL (3.4-5.0); ANION GAP 6 (8-16); BLOOD UREA NITROGEN 46 MG/DL (7-18); BUN/CREATININE RATIO 51.1 (5.4-32.0); CALCIUM 7.3 MG/DL (8.5-10.1); CHLORIDE 106 MMOL/L (99-107); GLUCOSE 86 MG/DL (70-104); MAGNESIUM 1.9 MG/DL (1.5-2.4); PHOSPHORUS 3.4 MG/DL (2.3-4.5); SODIUM 143 MMOL/L (135-145); eGFR 85 ML/MIN
[2018-09-24 18:22] LABS: POTASSIUM 2.9 MMOL/L (3.5-5.1)
[2018-09-24] MEDS: potassium Cl oral solution 20 MEQ/15 ML PO PRN ×2 (19:21→23:15)
[2018-09-24] MEDS: atorvastatin 20mg tablet PO SCH (20:04)
[2018-09-24] MEDS: insulin glargine (Lantus) pen - multi-dose SQ SCH (20:10)
[2018-09-24] MEDS: NORepinephrine 8mg/ 250ml NS 250 ML IV SCH ×2 (22:00→23:52)
[2018-09-24] MEDS ORDERED: VANCOMYCIN LEVEL IV ONE (22:30)
[2018-09-24 22:53] LABS: MAGNESIUM 2.3 MG/DL (1.5-2.4); PHOSPHORUS 4.2 MG/DL (2.3-4.5); POTASSIUM 3.7 MMOL/L (3.5-5.1)
[2018-09-24 23:02] LABS: VANCOMYCIN,TROUGH 22.1 UG/ML (6.0-14.0)
[2018-09-25] VITALS (23 sets, daily range): BP systolic 100–159; BP diastolic 51–77
[2018-09-25] MEDS ORDERED: albumin (human) 25% 100ml IV 100 ML IV ONE ×2 (00:30)
[2018-09-25] MEDS: mineral oil/petrolatum ophthal oint EACHEYE SCH ×4 (01:20→20:15)
[2018-09-25] MEDS: meropenem inj 500 MG in normal saline 100ml IV soln 100 ML IV SCH ×4 (01:20→20:15)
[2018-09-25] MEDS: insulin regular, human vial - multi-dose SQ SCH ×3 (01:44→14:01)
[2018-09-25] MEDS: potassium Cl oral solution 20 MEQ/15 ML PO PRN (02:46)
[2018-09-25] MEDS: ipratropium/albuterol 3ml nebule NEB SCH ×6 (03:02→23:02)
[2018-09-25 03:15] LABS: ABG BASE EXCESS 10.6 mmol/L (-2.0-3.0); ABG HCO3 33.9 mmol/L (22.0-26.0); ABG OXYGEN SATURATION 89.4 % (95-98); ABG PCO2 (T) 39.2 mmHg (35.0-48.0); ABG PH (T) 7.553 (7.350-7.450); ABG PO2 (T) 53.3 mmHg (83-108); FCOHb 0.1 % (0.5-1.5); FMetHb 0.1 % (0.3-1.12); FO2Hb 89.2 % (94-100); MINUTE VOLUME 8 L/min; PATIENT TEMPERATURE 36.4; PEEP 8 cm H2O; RESPIRATORY RATE 20 b/min; RESPIRATORY RATE (OBSERVED) 20 b/min; TIDAL VOLUME 400 mL; TOTAL HEMOGLOBIN 9.1 G/dl (14.0-18.0)
[2018-09-25] MEDS: midazolam 100mg in NS 100ml 100 ML IV PRN ×2 (04:14→17:38)
[2018-09-25] MEDS: FENTANYL-0.9 % NACL/PF 100 ML IV PRN ×2 (04:14→15:26)
[2018-09-25 06:00] LABS: BASOPHILS % (AUTO) 0.2 % (0-1); EOSINOPHILS # (AUTO) 0.3 X10'3 (0-0.9); EOSINOPHILS % (AUTO) 4.7 % (0-6); HEMOGLOBIN 7.6 g/dl (14.0-17.9); LYMPHOCYTES # (AUTO) 0.6 X10'3 (1.1-4.8); MEAN CORPUSCULAR HEMOGLOBIN 25.8 PG (27.0-31.0); MEAN CORPUSCULAR HGB CONC 31.8 % (33.0-36.5); MEAN CORPUSCULAR VOLUME 81.1 FL (78-98); MEAN PLATELET VOLUME 8.3 FL (7.4-10.4); MONOCYTES # (AUTO) 0.3 X10'3 (0-0.9); MONOCYTES % (AUTO) 5.4 % (2-12); NEUTROPHILS # (AUTO) 4.6 X10'3 (1.8-7.7); NEUTROPHILS % (AUTO) 79.7 % (42-75); PLATELET COUNT 274 X10'3 (140-440); RED BLOOD COUNT 2.96 X10'6 (4.70-6.10); RED CELL DISTRIBUTION WIDTH 15.2 % (11.5-14.5); WHITE BLOOD COUNT 5.7 X10'3 (4.5-11.0)
[2018-09-25 06:37] LABS: ALANINE AMINOTRANSFERASE 23 U/L (12-78); ALBUMIN 2.7 G/DL (3.4-5.0); ALBUMIN/GLOBULIN RATIO 0.7 (1.1-1.5); ALKALINE PHOSPHATASE 60 IU/L (46-116); ANION GAP 4 (8-16); ASPARTATE AMINO TRANSFERASE 19 U/L (10-37); BILIRUBIN,TOTAL 0.8 MG/DL (0.1-1.0); BLOOD UREA NITROGEN 55 MG/DL (7-18); BUN/CREATININE RATIO 44.7 (5.4-32.0); CALCIUM 9.1 MG/DL (8.5-10.1); CHLORIDE 100 MMOL/L (99-107); CREATININE 1.23 MG/DL (0.60-1.10); GLUCOSE 87 MG/DL (70-104); MAGNESIUM 2.5 MG/DL (1.5-2.4); POTASSIUM 4.2 MMOL/L (3.5-5.1); SODIUM 141 MMOL/L (135-145); TOTAL CARBON DIOXIDE 36.6 MMOL/L (24-32); TOTAL PROTEIN 6.7 G/DL (6.4-8.2); eGFR 59 ML/MIN
[2018-09-25] MEDS: cloNIDine 0.1 mg tablet PO SCH ×2 (07:38→20:16)
[2018-09-25] MEDS: citalopram 20mg tablet PO SCH (07:38)
[2018-09-25] MEDS: lactobacillus rhamnosus 10,000 MMU CELLS/CAPSULE PO SCH ×2 (07:38→20:16)
[2018-09-25] MEDS: aspirin 325mg tablet PO SCH (07:38)
[2018-09-25] MEDS: clopidogrel 75mg tablet PO SCH (07:38)
[2018-09-25] MEDS: famotidine/PF 10 mg/ml inj IV SCH ×2 (07:38→20:15)
[2018-09-25] MEDS: multivitamin oral liquid (Certavite) 5ml cup PO SCH (07:38)
[2018-09-25] MEDS: docusate sodium 100mg/10ml UD cup PO SCH ×2 (07:38→20:15)
[2018-09-25] MEDS: prednisone 10mg tablet PO SCH (07:39)
[2018-09-25] MEDS: rivaroxaban 20mg tablet OGT SCH (07:39)
[2018-09-25] MEDS ORDERED: furosemide inj 100 ML IV SCH (08:25)
[2018-09-25 11:19] LABS: MAGNESIUM 2.5 MG/DL (1.5-2.4); POTASSIUM 3.8 MMOL/L (3.5-5.1)
[2018-09-25 17:14] LABS: MAGNESIUM 2.5 MG/DL (1.5-2.4); PHOSPHORUS 4.5 MG/DL (2.3-4.5); POTASSIUM 3.9 MMOL/L (3.5-5.1)
[2018-09-25] MEDS: atorvastatin 20mg tablet PO SCH (20:16)
[2018-09-25] MEDS: insulin glargine (Lantus) pen - multi-dose SQ SCH (20:18)
[2018-09-25] MEDS ORDERED: vancomycin inj 1,250 MG in normal saline 250ml IV soln 250 ML IV SCH (23:00)
[2018-09-26] VITALS (24 sets, daily range): BP systolic 86–152; BP diastolic 53–75
[2018-09-26 00:54] LABS: MAGNESIUM 2.6 MG/DL (1.5-2.4); PHOSPHORUS 4.8 MG/DL (2.3-4.5); POTASSIUM 3.8 MMOL/L (3.5-5.1)
[2018-09-26] MEDS: FENTANYL-0.9 % NACL/PF 100 ML IV PRN ×2 (01:26→16:52)
[2018-09-26] MEDS: mineral oil/petrolatum ophthal oint EACHEYE SCH ×4 (01:27→19:42)
[2018-09-26] MEDS: meropenem inj 500 MG in normal saline 100ml IV soln 100 ML IV SCH ×2 (01:27→08:00)
[2018-09-26] MEDS: ipratropium/albuterol 3ml nebule NEB SCH ×6 (02:44→23:16)
[2018-09-26 03:01] LABS: ABG BASE EXCESS 9.2 mmol/L (-2.0-3.0); ABG HCO3 32.4 mmol/L (22.0-26.0); ABG OXYGEN SATURATION 98.3 % (95-98); ABG PCO2 (T) 39.4 mmHg (35.0-48.0); ABG PH (T) 7.535 (7.350-7.450); ABG PO2 (T) 131.1 mmHg (83-108); ALLEN'S TEST Positive; FCOHb 0.3 % (0.5-1.5); FMetHb 0.2 % (0.3-1.12); FO2Hb 97.8 % (94-100); MINUTE VOLUME 8 L/min; PATIENT TEMPERATURE 37.7; PEEP 8 cm H2O; RESPIRATORY RATE 20 b/min; RESPIRATORY RATE (OBSERVED) 20 b/min; TIDAL VOLUME 400 mL; TOTAL HEMOGLOBIN 8.9 G/dl (14.0-18.0)
[2018-09-26 04:51] LABS: BASOPHILS % (AUTO) 0.4 % (0-1); EOSINOPHILS # (AUTO) 0.3 X10'3 (0-0.9); EOSINOPHILS % (AUTO) 5.1 % (0-6); HEMATOCRIT 24.9 % (42.0-52.0); HEMOGLOBIN 8.1 g/dl (14.0-17.9); LYMPHOCYTES # (AUTO) 0.5 X10'3 (1.1-4.8); LYMPHOCYTES % (AUTO) 9.5 % (21-51); MEAN CORPUSCULAR HGB CONC 32.6 % (33.0-36.5); MEAN CORPUSCULAR VOLUME 79.5 FL (78-98); MEAN PLATELET VOLUME 7.9 FL (7.4-10.4); MONOCYTES # (AUTO) 0.3 X10'3 (0-0.9); MONOCYTES % (AUTO) 6.4 % (2-12); NEUTROPHILS # (AUTO) 4.2 X10'3 (1.8-7.7); NEUTROPHILS % (AUTO) 78.6 % (42-75); PLATELET COUNT 344 X10'3 (140-440); RED BLOOD COUNT 3.13 X10'6 (4.70-6.10); RED CELL DISTRIBUTION WIDTH 14.9 % (11.5-14.5); WHITE BLOOD COUNT 5.3 X10'3 (4.5-11.0)
[2018-09-26 05:06] LABS: ALANINE AMINOTRANSFERASE 26 U/L (12-78); ALBUMIN 2.3 G/DL (3.4-5.0); ALBUMIN/GLOBULIN RATIO 0.5 (1.1-1.5); ALKALINE PHOSPHATASE 66 IU/L (46-116); ANION GAP 8 (8-16); ASPARTATE AMINO TRANSFERASE 19 U/L (10-37); BILIRUBIN,TOTAL 0.7 MG/DL (0.1-1.0); BLOOD UREA NITROGEN 53 MG/DL (7-18); BUN/CREATININE RATIO 34.2 (5.4-32.0); CALCIUM 8.7 MG/DL (8.5-10.1); CHLORIDE 101 MMOL/L (99-107); CREATININE 1.55 MG/DL (0.60-1.10); GLUCOSE 88 MG/DL (70-104); MAGNESIUM 2.6 MG/DL (1.5-2.4); PHOSPHORUS 4.9 MG/DL (2.3-4.5); POTASSIUM 3.7 MMOL/L (3.5-5.1); SODIUM 144 MMOL/L (135-145); TOTAL CARBON DIOXIDE 34.9 MMOL/L (24-32); TOTAL PROTEIN 6.5 G/DL (6.4-8.2); eGFR 46 ML/MIN
[2018-09-26] MEDS: aspirin 325mg tablet PO SCH (08:00)
[2018-09-26] MEDS: clopidogrel 75mg tablet PO SCH (08:00)
[2018-09-26] MEDS: multivitamin oral liquid (Certavite) 5ml cup PO SCH (08:00)
[2018-09-26] MEDS: methylnaltrexone br 12mg/0.6ml inj***SubQ only SQ SCH (08:00)
[2018-09-26] MEDS: lactobacillus rhamnosus 10,000 MMU CELLS/CAPSULE PO SCH ×2 (08:00→19:50)
[2018-09-26] MEDS: famotidine/PF 10 mg/ml inj IV SCH ×2 (08:00→19:49)
[2018-09-26] MEDS: cloNIDine 0.1 mg tablet PO SCH ×2 (08:00→19:50)
[2018-09-26] MEDS: rivaroxaban 20mg tablet OGT SCH (08:00)
[2018-09-26] MEDS: citalopram 20mg tablet PO SCH (08:00)
[2018-09-26] MEDS: docusate sodium 100mg/10ml UD cup PO SCH ×2 (08:00→19:49)
[2018-09-26] MEDS: prednisone 10mg tablet PO SCH (08:30)
[2018-09-26 12:56] LABS: MAGNESIUM 2.9 MG/DL (1.5-2.4); PHOSPHORUS 5.3 MG/DL (2.3-4.5); POTASSIUM 4.2 MMOL/L (3.5-5.1)
[2018-09-26] MEDS: insulin regular, human vial - multi-dose SQ SCH ×2 (14:25→19:54)
[2018-09-26] MEDS: midazolam 100mg in NS 100ml 100 ML IV PRN (19:49)
[2018-09-26] MEDS: atorvastatin 20mg tablet PO SCH (19:50)
[2018-09-26] MEDS: insulin glargine (Lantus) pen - multi-dose SQ SCH (19:53)
[2018-09-27] VITALS (25 sets, daily range): BP systolic 81–151; BP diastolic 52–87
[2018-09-27] MEDS: mineral oil/petrolatum ophthal oint EACHEYE SCH ×4 (01:50→20:34)
[2018-09-27] MEDS: FENTANYL-0.9 % NACL/PF 100 ML IV PRN ×2 (01:50→16:41)
[2018-09-27] MEDS: insulin regular, human vial - multi-dose SQ SCH ×3 (01:51→13:47)
[2018-09-27] MEDS: ipratropium/albuterol 3ml nebule NEB SCH ×6 (03:14→23:27)
[2018-09-27 03:41] LABS: ABG HCO3 29.5 mmol/L (22.0-26.0); ABG OXYGEN SATURATION 91.7 % (95-98); ABG PCO2 (T) 34.4 mmHg (35.0-48.0); ABG PH (T) 7.553 (7.350-7.450); ABG PO2 (T) 61.5 mmHg (83-108); FCOHb 0.3 % (0.5-1.5); FMetHb 0.1 % (0.3-1.12); FO2Hb 91.3 % (94-100); MINUTE VOLUME 9 L/min; PATIENT TEMPERATURE 37.4; PEEP 5 cm H2O; RESPIRATORY RATE 20 b/min; RESPIRATORY RATE (OBSERVED) 20 b/min; TIDAL VOLUME 400 mL; TOTAL HEMOGLOBIN 8.9 G/dl (14.0-18.0)
[2018-09-27 03:55] LABS: BASOPHILS % (AUTO) 0.4 % (0-1); EOSINOPHILS # (AUTO) 0.2 X10'3 (0-0.9); EOSINOPHILS % (AUTO) 4.3 % (0-6); HEMATOCRIT 23.8 % (42.0-52.0); HEMOGLOBIN 7.9 g/dl (14.0-17.9); LYMPHOCYTES # (AUTO) 0.7 X10'3 (1.1-4.8); LYMPHOCYTES % (AUTO) 15.2 % (21-51); MEAN CORPUSCULAR HEMOGLOBIN 26.1 PG (27.0-31.0); MEAN CORPUSCULAR HGB CONC 33.1 % (33.0-36.5); MEAN CORPUSCULAR VOLUME 78.9 FL (78-98); MONOCYTES # (AUTO) 0.4 X10'3 (0-0.9); MONOCYTES % (AUTO) 7.4 % (2-12); NEUTROPHILS # (AUTO) 3.6 X10'3 (1.8-7.7); NEUTROPHILS % (AUTO) 72.7 % (42-75); PLATELET COUNT 390 X10'3 (140-440); RED BLOOD COUNT 3.01 X10'6 (4.70-6.10); RED CELL DISTRIBUTION WIDTH 15.1 % (11.5-14.5); WHITE BLOOD COUNT 4.9 X10'3 (4.5-11.0)
[2018-09-27 04:10] LABS: ALANINE AMINOTRANSFERASE 28 U/L (12-78); ALBUMIN 2.2 G/DL (3.4-5.0); ALBUMIN/GLOBULIN RATIO 0.5 (1.1-1.5); ALKALINE PHOSPHATASE 61 IU/L (46-116); ANION GAP 8 (8-16); ASPARTATE AMINO TRANSFERASE 24 U/L (10-37); BILIRUBIN,TOTAL 0.7 MG/DL (0.1-1.0); BLOOD UREA NITROGEN 54 MG/DL (7-18); BUN/CREATININE RATIO 34.2 (5.4-32.0); CALCIUM 8.6 MG/DL (8.5-10.1); CHLORIDE 104 MMOL/L (99-107); CREATININE 1.58 MG/DL (0.60-1.10); GLUCOSE 98 MG/DL (70-104); MAGNESIUM 2.7 MG/DL (1.5-2.4); PHOSPHORUS 3.4 MG/DL (2.3-4.5); SODIUM 144 MMOL/L (135-145); TOTAL CARBON DIOXIDE 31.8 MMOL/L (24-32); TOTAL PROTEIN 6.3 G/DL (6.4-8.2); eGFR 45 ML/MIN
[2018-09-27] MEDS: potassium Cl oral solution 20 MEQ/15 ML PO PRN ×3 (04:27→13:37)
[2018-09-27] MEDS ORDERED: furosemide 40mg tablet PO SCH ×2 (08:00→20:00)
[2018-09-27] MEDS: multivitamin oral liquid (Certavite) 5ml cup PO SCH (08:03)
[2018-09-27] MEDS: docusate sodium 100mg/10ml UD cup PO SCH ×2 (08:03→20:34)
[2018-09-27] MEDS: cloNIDine 0.1 mg tablet PO SCH ×2 (08:04→20:33)
[2018-09-27] MEDS: rivaroxaban 20mg tablet OGT SCH (08:04)
[2018-09-27] MEDS: lactobacillus rhamnosus 10,000 MMU CELLS/CAPSULE PO SCH ×2 (08:04→20:33)
[2018-09-27] MEDS: clopidogrel 75mg tablet PO SCH (08:04)
[2018-09-27] MEDS: famotidine/PF 10 mg/ml inj IV SCH ×2 (08:04→20:33)
[2018-09-27] MEDS: prednisone 10mg tablet PO SCH (08:04)
[2018-09-27] MEDS: citalopram 20mg tablet PO SCH (08:04)
[2018-09-27] MEDS: aspirin 325mg tablet PO SCH (08:04)
[2018-09-27] MEDS ORDERED: ziprasidone IM 20mg inj **IM only IM ONE ×2 (10:35→12:15)
[2018-09-27] MEDS: spironolactone 25 MG tablet PO SCH ×2 (13:15→20:32)
[2018-09-27] MEDS: metoclopramide 5 mg/ml inj IV SCH (16:24)
[2018-09-27] MEDS: furosemide 40mg tablet PO SCH (16:25)
[2018-09-27] MEDS ORDERED: bisacodyl 10mg suppository rectal RC STA (17:10)
[2018-09-27] MEDS ORDERED: polyethylene glycol 3350 17gm powd pack PO ONE (17:10)
[2018-09-27] MEDS: predniSONE 20 mg tablet PO SCH (20:33)
[2018-09-27] MEDS: atorvastatin 20mg tablet PO SCH (20:33)
[2018-09-27] MEDS: insulin glargine (Lantus) pen - multi-dose SQ SCH (21:44)
[2018-09-28] VITALS (24 sets, daily range): BP systolic 93–162; BP diastolic 56–92
[2018-09-28] MEDS: metoclopramide 5 mg/ml inj IV SCH ×3 (00:21→16:31)
[2018-09-28] MEDS: furosemide 40mg tablet PO SCH ×3 (00:21→16:31)
[2018-09-28] MEDS: mineral oil/petrolatum ophthal oint EACHEYE SCH ×4 (02:15→20:00)
[2018-09-28] MEDS: insulin regular, human vial - multi-dose SQ SCH ×4 (02:18→21:31)
[2018-09-28] MEDS: ipratropium/albuterol 3ml nebule NEB SCH ×6 (02:50→23:19)
[2018-09-28 03:06] LABS: ABG BASE EXCESS 3.2 mmol/L (-2.0-3.0); ABG HCO3 27.9 mmol/L (22.0-26.0); ABG OXYGEN SATURATION 96.4 % (95-98); ABG PCO2 (T) 42.4 mmHg (35.0-48.0); ABG PH (T) 7.435 (7.350-7.450); ABG PO2 (T) 89.6 mmHg (83-108); ALLEN'S TEST Positive; FCOHb 0.3 % (0.5-1.5); FMetHb 0.3 % (0.3-1.12); FO2Hb 95.8 % (94-100); MINUTE VOLUME 6 L/min; PATIENT TEMPERATURE 36.6; PEEP 5 cm H2O; RESPIRATORY RATE 14 b/min; RESPIRATORY RATE (OBSERVED) 14 b/min; TIDAL VOLUME 400 mL
[2018-09-28 05:56] LABS: BASOPHILS % (AUTO) 0 % (0-1); EOSINOPHILS # (AUTO) 0.1 X10'3 (0-0.9); EOSINOPHILS % (AUTO) 1.9 % (0-6); HEMATOCRIT 28.1 % (42.0-52.0); HEMOGLOBIN 9.1 g/dl (14.0-17.9); LYMPHOCYTES # (AUTO) 0.4 X10'3 (1.1-4.8); LYMPHOCYTES % (AUTO) 4.8 % (21-51); MEAN CORPUSCULAR HEMOGLOBIN 25.7 PG (27.0-31.0); MEAN CORPUSCULAR HGB CONC 32.4 % (33.0-36.5); MEAN CORPUSCULAR VOLUME 79.5 FL (78-98); MEAN PLATELET VOLUME 8.1 FL (7.4-10.4); MONOCYTES # (AUTO) 0.1 X10'3 (0-0.9); MONOCYTES % (AUTO) 1.7 % (2-12); NEUTROPHILS # (AUTO) 6.9 X10'3 (1.8-7.7); NEUTROPHILS % (AUTO) 91.6 % (42-75); PLATELET COUNT 493 X10'3 (140-440); RED BLOOD COUNT 3.53 X10'6 (4.70-6.10); RED CELL DISTRIBUTION WIDTH 14.9 % (11.5-14.5); WHITE BLOOD COUNT 7.5 X10'3 (4.5-11.0)
[2018-09-28 06:25] LABS: ALANINE AMINOTRANSFERASE 34 U/L (12-78); ALBUMIN 2.5 G/DL (3.4-5.0); ALBUMIN/GLOBULIN RATIO 0.5 (1.1-1.5); ALKALINE PHOSPHATASE 72 IU/L (46-116); ANION GAP 10 (8-16); ASPARTATE AMINO TRANSFERASE 23 U/L (10-37); BILIRUBIN,TOTAL 0.6 MG/DL (0.1-1.0); BLOOD UREA NITROGEN 58 MG/DL (7-18); BUN/CREATININE RATIO 33.1 (5.4-32.0); CALCIUM 9.1 MG/DL (8.5-10.1); CHLORIDE 105 MMOL/L (99-107); CREATININE 1.75 MG/DL (0.60-1.10); GLUCOSE 196 MG/DL (70-104); MAGNESIUM 3.1 MG/DL (1.5-2.4); PHOSPHORUS 5.2 MG/DL (2.3-4.5); POTASSIUM 4.9 MMOL/L (3.5-5.1); SODIUM 144 MMOL/L (135-145); TOTAL CARBON DIOXIDE 29.2 MMOL/L (24-32); TOTAL PROTEIN 7.3 G/DL (6.4-8.2); eGFR 40 ML/MIN
[2018-09-28] MEDS: FENTANYL-0.9 % NACL/PF 100 ML IV PRN (06:43)
[2018-09-28] MEDS: citalopram 20mg tablet PO SCH (08:22)
[2018-09-28] MEDS: rivaroxaban 20mg tablet OGT SCH (08:22)
[2018-09-28] MEDS: spironolactone 25 MG tablet PO SCH ×3 (08:22→21:20)
[2018-09-28] MEDS: cloNIDine 0.1 mg tablet PO SCH ×2 (08:22→19:57)
[2018-09-28] MEDS: aspirin 325mg tablet PO SCH (08:22)
[2018-09-28] MEDS: clopidogrel 75mg tablet PO SCH (08:22)
[2018-09-28] MEDS: predniSONE 20 mg tablet PO SCH ×2 (08:22→19:58)
[2018-09-28] MEDS: docusate sodium 100mg/10ml UD cup PO SCH ×2 (08:22→19:58)
[2018-09-28] MEDS: multivitamin oral liquid (Certavite) 5ml cup PO SCH (08:22)
[2018-09-28] MEDS: lactobacillus rhamnosus 10,000 MMU CELLS/CAPSULE PO SCH ×2 (08:22→19:57)
[2018-09-28] MEDS: methylnaltrexone br 12mg/0.6ml inj***SubQ only SQ SCH (08:23)
[2018-09-28] MEDS: ziprasidone IM 20mg inj **IM only IM SCH (08:23)
[2018-09-28] MEDS: famotidine/PF 10 mg/ml inj IV SCH ×2 (08:24→19:58)
[2018-09-28] MEDS: LORazepam 0.5 MG tablet PO PRN ×2 (16:31→21:16)
[2018-09-28] MEDS: atorvastatin 20mg tablet PO SCH (21:16)
[2018-09-28] MEDS: insulin glargine (Lantus) pen - multi-dose SQ SCH (21:32)
[2018-09-28] MEDS ORDERED: VANCOMYCIN LEVEL IV ONE (22:30)
[2018-09-29] VITALS (24 sets, daily range): BP systolic 98–171; BP diastolic 58–84
[2018-09-29] MEDS: metoclopramide 5 mg/ml inj IV SCH ×3 (00:20→16:15)
[2018-09-29] MEDS: furosemide 40mg tablet PO SCH ×3 (00:21→16:14)
[2018-09-29] MEDS: HYDROcodone/acetaminophen 5mg/325mg tablet PO PRN ×2 (00:38→16:14)
[2018-09-29] MEDS: mineral oil/petrolatum ophthal oint EACHEYE SCH ×2 (02:00→08:00)
[2018-09-29] MEDS: ipratropium/albuterol 3ml nebule NEB SCH ×6 (03:02→23:27)
[2018-09-29] MEDS: insulin regular, human vial - multi-dose SQ SCH ×4 (03:30→19:27)
[2018-09-29] MEDS: LORazepam 0.5 MG tablet PO PRN ×2 (03:47→14:15)
[2018-09-29 06:00] LABS: BASOPHILS % (AUTO) 0 % (0-1); EOSINOPHILS # (AUTO) 0.2 X10'3 (0-0.9); EOSINOPHILS % (AUTO) 1.8 % (0-6); HEMATOCRIT 27.9 % (42.0-52.0); LYMPHOCYTES # (AUTO) 0.6 X10'3 (1.1-4.8); LYMPHOCYTES % (AUTO) 5.1 % (21-51); MEAN CORPUSCULAR HEMOGLOBIN 25.7 PG (27.0-31.0); MEAN CORPUSCULAR HGB CONC 32.2 % (33.0-36.5); MEAN CORPUSCULAR VOLUME 79.9 FL (78-98); MEAN PLATELET VOLUME 7.9 FL (7.4-10.4); MONOCYTES # (AUTO) 0.3 X10'3 (0-0.9); MONOCYTES % (AUTO) 2.8 % (2-12); NEUTROPHILS # (AUTO) 9.9 X10'3 (1.8-7.7); NEUTROPHILS % (AUTO) 90.3 % (42-75); PLATELET COUNT 599 X10'3 (140-440); RED BLOOD COUNT 3.49 X10'6 (4.70-6.10); RED CELL DISTRIBUTION WIDTH 14.9 % (11.5-14.5); WHITE BLOOD COUNT 10.9 X10'3 (4.5-11.0)
[2018-09-29 06:31] LABS: GLUCOSE 190 MG/DL (70-104)
[2018-09-29 06:32] LABS: ALANINE AMINOTRANSFERASE 45 U/L (12-78); ALBUMIN 2.6 G/DL (3.4-5.0); ALBUMIN/GLOBULIN RATIO 0.6 (1.1-1.5); ALKALINE PHOSPHATASE 73 IU/L (46-116); ANION GAP 8 (8-16); ASPARTATE AMINO TRANSFERASE 25 U/L (10-37); BILIRUBIN,TOTAL 0.5 MG/DL (0.1-1.0); BLOOD UREA NITROGEN 53 MG/DL (7-18); BUN/CREATININE RATIO 35.8 (5.4-32.0); CALCIUM 9.3 MG/DL (8.5-10.1); CHLORIDE 104 MMOL/L (99-107); CREATININE 1.48 MG/DL (0.60-1.10); POTASSIUM 3.7 MMOL/L (3.5-5.1); SODIUM 143 MMOL/L (135-145); TOTAL CARBON DIOXIDE 30.9 MMOL/L (24-32); eGFR 48 ML/MIN
[2018-09-29] MEDS: multivitamin oral liquid (Certavite) 5ml cup PO SCH (07:39)
[2018-09-29] MEDS: docusate sodium 100mg/10ml UD cup PO SCH ×2 (07:39→19:21)
[2018-09-29] MEDS: aspirin 325mg tablet PO SCH (07:40)
[2018-09-29] MEDS: ziprasidone IM 20mg inj **IM only IM SCH (07:40)
[2018-09-29] MEDS: predniSONE 20 mg tablet PO SCH ×2 (07:40→19:22)
[2018-09-29] MEDS: spironolactone 25 MG tablet PO SCH ×3 (07:40→19:22)
[2018-09-29] MEDS: cloNIDine 0.1 mg tablet PO SCH ×2 (07:41→19:22)
[2018-09-29] MEDS: clopidogrel 75mg tablet PO SCH (07:41)
[2018-09-29] MEDS: famotidine/PF 10 mg/ml inj IV SCH ×2 (07:41→19:21)
[2018-09-29] MEDS: citalopram 20mg tablet PO SCH (07:41)
[2018-09-29] MEDS: lactobacillus rhamnosus 10,000 MMU CELLS/CAPSULE PO SCH ×2 (07:41→19:22)
[2018-09-29] MEDS: rivaroxaban 20mg tablet OGT SCH (07:41)
[2018-09-29] MEDS: fluconazole 100mg tablet PO SCH (12:00)
[2018-09-29 16:02] LABS: CLARITY,URINE SLIGHTLY CLOUDY (Clear); COLOR,URINE YELLOW (Yellow); GLUCOSE, URINE NEGATIVE (Neg); KETONES,URINE NEGATIVE (Neg); LEUKOCYTE ESTERASE ,URINE TRACE (Neg); NITRITES, URINE NEGATIVE (Neg); OCCULT BLOOD,URINE MODERATE (Neg); PROTEIN,URINE 100 mg/dl (Neg); UA COLLECTION TYPE NON-SPECIFIED
[2018-09-29 16:18] LABS: BACTERIA,URINE 1+ /HPF (Neg); MUCUS STRANDS FEW /LPF (Neg); SQUAMOUS EPITHELIAL CELL,UR FEW /LPF (FEW)
[2018-09-29 16:19] LABS: HYALINE CASTS 0-3 /LPF (NEGATIVE); RENAL CELLS, URINE FEW /HPF
[2018-09-29] MEDS: atorvastatin 20mg tablet PO SCH (19:22)
[2018-09-29] MEDS: insulin glargine (Lantus) pen - multi-dose SQ SCH (19:28)
[2018-09-30] VITALS (23 sets, daily range): BP systolic 101–166; BP diastolic 58–94
[2018-09-30] MEDS: furosemide 40mg tablet PO SCH ×3 (00:52→16:17)
[2018-09-30] MEDS: metoclopramide 5 mg/ml inj IV SCH ×3 (00:52→16:17)
[2018-09-30 01:31] LABS: BASOPHILS % (AUTO) 0 % (0-1); EOSINOPHILS # (AUTO) 0.2 X10'3 (0-0.9); EOSINOPHILS % (AUTO) 2.1 % (0-6); HEMATOCRIT 29.1 % (42.0-52.0); HEMOGLOBIN 9.2 g/dl (14.0-17.9); LYMPHOCYTES # (AUTO) 0.7 X10'3 (1.1-4.8); LYMPHOCYTES % (AUTO) 5.6 % (21-51); MEAN CORPUSCULAR HEMOGLOBIN 25.1 PG (27.0-31.0); MEAN CORPUSCULAR HGB CONC 31.7 % (33.0-36.5); MEAN CORPUSCULAR VOLUME 79.2 FL (78-98); MEAN PLATELET VOLUME 7.7 FL (7.4-10.4); MONOCYTES # (AUTO) 0.5 X10'3 (0-0.9); MONOCYTES % (AUTO) 3.9 % (2-12); NEUTROPHILS # (AUTO) 10.4 X10'3 (1.8-7.7); NEUTROPHILS % (AUTO) 88.4 % (42-75); PLATELET COUNT 688 X10'3 (140-440); RED BLOOD COUNT 3.67 X10'6 (4.70-6.10); RED CELL DISTRIBUTION WIDTH 14.9 % (11.5-14.5); WHITE BLOOD COUNT 11.8 X10'3 (4.5-11.0)
[2018-09-30 01:35] LABS: ANION GAP 6 (8-16); BILIRUBIN,TOTAL 0.6 MG/DL (0.1-1.0); BLOOD UREA NITROGEN 61 MG/DL (7-18); BUN/CREATININE RATIO 43.3 (5.4-32.0); CALCIUM 9.2 MG/DL (8.5-10.1); CHLORIDE 104 MMOL/L (99-107); CREATININE 1.41 MG/DL (0.60-1.10); GLUCOSE 250 MG/DL (70-104); MAGNESIUM 2.5 MG/DL (1.5-2.4); POTASSIUM 3.9 MMOL/L (3.5-5.1); SODIUM 142 MMOL/L (135-145); TOTAL CARBON DIOXIDE 32.2 MMOL/L (24-32); eGFR 51 ML/MIN
[2018-09-30 01:36] LABS: ALANINE AMINOTRANSFERASE 54 U/L (12-78); ALBUMIN 2.6 G/DL (3.4-5.0); ALBUMIN/GLOBULIN RATIO 0.6 (1.1-1.5); ALKALINE PHOSPHATASE 73 IU/L (46-116); ASPARTATE AMINO TRANSFERASE 25 U/L (10-37)
[2018-09-30] MEDS: insulin regular, human vial - multi-dose SQ SCH ×4 (01:54→20:36)
[2018-09-30] MEDS: ipratropium/albuterol 3ml nebule NEB SCH ×6 (03:16→23:04)
[2018-09-30] MEDS: docusate sodium 100mg/10ml UD cup PO SCH ×2 (08:06→20:11)
[2018-09-30] MEDS: ziprasidone IM 20mg inj **IM only IM SCH (08:06)
[2018-09-30] MEDS: methylnaltrexone br 12mg/0.6ml inj***SubQ only SQ SCH (08:06)
[2018-09-30] MEDS: clopidogrel 75mg tablet PO SCH (08:06)
[2018-09-30] MEDS: citalopram 20mg tablet PO SCH (08:06)
[2018-09-30] MEDS: famotidine/PF 10 mg/ml inj IV SCH ×2 (08:06→20:10)
[2018-09-30] MEDS: multivitamin oral liquid (Certavite) 5ml cup PO SCH (08:06)
[2018-09-30] MEDS: predniSONE 20 mg tablet PO SCH ×2 (08:07→20:11)
[2018-09-30] MEDS: cloNIDine 0.1 mg tablet PO SCH ×2 (08:07→20:11)
[2018-09-30] MEDS: fluconazole 100mg tablet PO SCH (08:07)
[2018-09-30] MEDS: rivaroxaban 20mg tablet OGT SCH (08:07)
[2018-09-30] MEDS: aspirin 325mg tablet PO SCH (08:07)
[2018-09-30] MEDS: lactobacillus rhamnosus 10,000 MMU CELLS/CAPSULE PO SCH ×2 (08:07→20:10)
[2018-09-30] MEDS: spironolactone 25 MG tablet PO SCH ×3 (08:08→21:29)
[2018-09-30 15:48] LABS: CLARITY,URINE CLEAR (Clear); COLOR,URINE YELLOW (Yellow); GLUCOSE, URINE NEGATIVE (Neg); KETONES,URINE NEGATIVE (Neg); LEUKOCYTE ESTERASE ,URINE SMALL (Neg); NITRITES, URINE NEGATIVE (Neg); OCCULT BLOOD,URINE TRACE-INTACT (Neg); PROTEIN,URINE 100 mg/dl (Neg)
[2018-09-30 15:57] LABS: UA COLLECTION TYPE NON-SPECIFIED
[2018-09-30 15:58] LABS: BACTERIA,URINE FEW /HPF (Neg); MUCUS STRANDS NONE SEEN /LPF (Neg); SQUAMOUS EPITHELIAL CELL,UR NONE SEEN /LPF (FEW); WBC,URINE 0-4 /HPF (0-4)
[2018-09-30] MEDS: insulin glargine (Lantus) pen - multi-dose SQ SCH (20:38)
[2018-09-30] MEDS: atorvastatin 20mg tablet PO SCH (21:29)
[2018-10-01] VITALS (17 sets, daily range): BP systolic 104–160; BP diastolic 63–101
[2018-10-01] MEDS: metoclopramide 5 mg/ml inj IV SCH ×3 (00:03→16:00)
[2018-10-01] MEDS: furosemide 40mg tablet PO SCH ×2 (00:03→07:23)
[2018-10-01] MEDS: insulin regular, human vial - multi-dose SQ SCH ×2 (02:15→07:45)
[2018-10-01] MEDS: LORazepam 0.5 MG tablet PO PRN (02:52)
[2018-10-01] MEDS: ipratropium/albuterol 3ml nebule NEB SCH ×6 (03:14→22:57)
[2018-10-01 05:33] LABS: BASOPHILS % (AUTO) 0.1 % (0-1); EOSINOPHILS # (AUTO) 0.2 X10'3 (0-0.9); HEMATOCRIT 31.5 % (42.0-52.0); HEMOGLOBIN 10.1 g/dl (14.0-17.9); LYMPHOCYTES # (AUTO) 0.7 X10'3 (1.1-4.8); LYMPHOCYTES % (AUTO) 6.5 % (21-51); MEAN CORPUSCULAR HEMOGLOBIN 25.6 PG (27.0-31.0); MEAN CORPUSCULAR HGB CONC 32.2 % (33.0-36.5); MEAN CORPUSCULAR VOLUME 79.7 FL (78-98); MEAN PLATELET VOLUME 7.7 FL (7.4-10.4); MONOCYTES # (AUTO) 0.8 X10'3 (0-0.9); MONOCYTES % (AUTO) 6.9 % (2-12); NEUTROPHILS # (AUTO) 9.4 X10'3 (1.8-7.7); NEUTROPHILS % (AUTO) 84.5 % (42-75); PLATELET COUNT 686 X10'3 (140-440); RED BLOOD COUNT 3.95 X10'6 (4.70-6.10); RED CELL DISTRIBUTION WIDTH 14.9 % (11.5-14.5); WHITE BLOOD COUNT 11.1 X10'3 (4.5-11.0)
[2018-10-01 05:43] LABS: ALANINE AMINOTRANSFERASE 74 U/L (12-78); ALBUMIN 2.6 G/DL (3.4-5.0); ALBUMIN/GLOBULIN RATIO 0.6 (1.1-1.5); ALKALINE PHOSPHATASE 71 IU/L (46-116); ANION GAP 7 (8-16); ASPARTATE AMINO TRANSFERASE 33 U/L (10-37); BILIRUBIN,TOTAL 0.6 MG/DL (0.1-1.0); BLOOD UREA NITROGEN 71 MG/DL (7-18); BUN/CREATININE RATIO 51.1 (5.4-32.0); CALCIUM 9.5 MG/DL (8.5-10.1); CHLORIDE 104 MMOL/L (99-107); CREATININE 1.39 MG/DL (0.60-1.10); GLUCOSE 199 MG/DL (70-104); POTASSIUM 3.9 MMOL/L (3.5-5.1); SODIUM 144 MMOL/L (135-145); TOTAL CARBON DIOXIDE 32.6 MMOL/L (24-32); TOTAL PROTEIN 7.1 G/DL (6.4-8.2); eGFR 52 ML/MIN
[2018-10-01] MEDS: multivitamin oral liquid (Certavite) 5ml cup PO SCH (07:22)
[2018-10-01] MEDS: docusate sodium 100mg/10ml UD cup PO SCH ×2 (07:22→19:50)
[2018-10-01] MEDS: famotidine/PF 10 mg/ml inj IV SCH ×2 (07:22→20:07)
[2018-10-01] MEDS: clopidogrel 75mg tablet PO SCH (07:22)
[2018-10-01] MEDS: aspirin 325mg tablet PO SCH (07:22)
[2018-10-01] MEDS: spironolactone 25 MG tablet PO SCH ×3 (07:23→21:00)
[2018-10-01] MEDS: predniSONE 20 mg tablet PO SCH ×2 (07:23→19:50)
[2018-10-01] MEDS: ziprasidone IM 20mg inj **IM only IM SCH (07:23)
[2018-10-01] MEDS: citalopram 20mg tablet PO SCH (07:23)
[2018-10-01] MEDS: lactobacillus rhamnosus 10,000 MMU CELLS/CAPSULE PO SCH ×2 (07:23→19:50)
[2018-10-01] MEDS: fluconazole 100mg tablet PO SCH (07:23)
[2018-10-01] MEDS: rivaroxaban 20mg tablet OGT SCH (07:23)
[2018-10-01] MEDS: cloNIDine 0.1 mg tablet PO SCH ×2 (07:23→19:50)
[2018-10-01] MEDS ORDERED: saliva stimulant agent 45ml spray MM PRN (10:30)
[2018-10-01] MEDS: furosemide 10 MG/1 ML 10ml inj IV SCH (16:59)
[2018-10-01] MEDS: HYDROcodone/acetaminophen 5mg/325mg tablet PO PRN (20:01)
[2018-10-01] MEDS: atorvastatin 20mg tablet PO SCH (21:00)
[2018-10-01] MEDS: insulin glargine (Lantus) pen - multi-dose SQ SCH (22:33)
[2018-10-02] MEDS: LORazepam 0.5 MG tablet PO PRN (00:59)
[2018-10-02] MEDS: metoclopramide 5 mg/ml inj IV SCH ×2 (00:59→08:39)
[2018-10-02] MEDS: ipratropium/albuterol 3ml nebule NEB SCH ×7 (02:52→23:28)
[2018-10-02 03:00] VITALS: BP 136/85
[2018-10-02 05:14] LABS: BASOPHILS % (AUTO) 0.3 % (0-1); EOSINOPHILS % (AUTO) 0.2 % (0-6); HEMATOCRIT 32.7 % (42.0-52.0); HEMOGLOBIN 10.4 g/dl (14.0-17.9); LYMPHOCYTES # (AUTO) 0.8 X10'3 (1.1-4.8); LYMPHOCYTES % (AUTO) 7.1 % (21-51); MEAN CORPUSCULAR HEMOGLOBIN 25.3 PG (27.0-31.0); MEAN CORPUSCULAR HGB CONC 31.9 % (33.0-36.5); MEAN CORPUSCULAR VOLUME 79.2 FL (78-98); MEAN PLATELET VOLUME 7.9 FL (7.4-10.4); MONOCYTES # (AUTO) 0.4 X10'3 (0-0.9); MONOCYTES % (AUTO) 3.6 % (2-12); NEUTROPHILS % (AUTO) 88.8 % (42-75); PLATELET COUNT 652 X10'3 (140-440); RED BLOOD COUNT 4.13 X10'6 (4.70-6.10); RED CELL DISTRIBUTION WIDTH 15.2 % (11.5-14.5); WHITE BLOOD COUNT 11.3 X10'3 (4.5-11.0)
[2018-10-02 05:54] LABS: ALBUMIN 2.6 G/DL (3.4-5.0); ANION GAP 6 (8-16); BLOOD UREA NITROGEN 77 MG/DL (7-18); BUN/CREATININE RATIO 48.1 (5.4-32.0); CALCIUM 9.4 MG/DL (8.5-10.1); CHLORIDE 102 MMOL/L (99-107); GLUCOSE 299 MG/DL (70-104); SODIUM 142 MMOL/L (135-145); TOTAL CARBON DIOXIDE 33.7 MMOL/L (24-32); eGFR 44 ML/MIN
[2018-10-02 06:00] VITALS: BP 159/82
[2018-10-02] MEDS: docusate sodium 100mg/10ml UD cup PO SCH ×2 (08:00→21:08)
[2018-10-02] MEDS: multivitamin oral liquid (Certavite) 5ml cup PO SCH (08:00)
[2018-10-02] MEDS: fluconazole 100mg tablet PO SCH (08:00)
[2018-10-02] MEDS: lactobacillus rhamnosus 10,000 MMU CELLS/CAPSULE PO SCH ×2 (08:38→21:07)
[2018-10-02] MEDS: clopidogrel 75mg tablet PO SCH (08:38)
[2018-10-02] MEDS: rivaroxaban 20mg tablet OGT SCH (08:38)
[2018-10-02] MEDS: cloNIDine 0.1 mg tablet PO SCH (08:39)
[2018-10-02] MEDS: aspirin 325mg tablet PO SCH (08:39)
[2018-10-02] MEDS: spironolactone 25 MG tablet PO SCH ×3 (08:39→21:07)
[2018-10-02] MEDS: famotidine/PF 10 mg/ml inj IV SCH ×2 (08:39→21:07)
[2018-10-02] MEDS: citalopram 20mg tablet PO SCH (08:39)
[2018-10-02] MEDS: predniSONE 20 mg tablet PO SCH (08:39)
[2018-10-02] MEDS: ziprasidone IM 20mg inj **IM only IM SCH (08:40)
[2018-10-02] MEDS: methylnaltrexone br 12mg/0.6ml inj***SubQ only SQ SCH (08:41)
[2018-10-02] MEDS: furosemide 10 MG/1 ML 10ml inj IV SCH (08:52)
[2018-10-02] MEDS: insulin regular, human vial - multi-dose SQ SCH ×2 (10:49→18:58)
[2018-10-02 11:00] VITALS: BP 136/79
[2018-10-02 15:00] VITALS: BP 138/84
[2018-10-02 19:00] VITALS: BP 156/85
[2018-10-02] MEDS: atorvastatin 20mg tablet PO SCH (21:07)
[2018-10-02] MEDS: insulin glargine (Lantus) pen - multi-dose SQ SCH (21:17)
[2018-10-02 23:00] VITALS: BP 150/90
[2018-10-03 00:48] LABS: ALBUMIN 2.7 G/DL (3.4-5.0); ANION GAP 10 (8-16); BLOOD UREA NITROGEN 84 MG/DL (7-18); BUN/CREATININE RATIO 52.2 (5.4-32.0); CALCIUM 9.4 MG/DL (8.5-10.1); CHLORIDE 105 MMOL/L (99-107); CREATININE 1.61 MG/DL (0.60-1.10); GLUCOSE 148 MG/DL (70-104); PHOSPHORUS 2.8 MG/DL (2.3-4.5); POTASSIUM 3.6 MMOL/L (3.5-5.1); SODIUM 145 MMOL/L (135-145); eGFR 44 ML/MIN
[2018-10-03 03:00] VITALS: BP 153/90
[2018-10-03] MEDS: ipratropium/albuterol 3ml nebule NEB SCH ×4 (03:53→15:15)
[2018-10-03 04:03] LABS: BASOPHILS % (AUTO) 0 % (0-1); EOSINOPHILS # (AUTO) 0.4 X10'3 (0-0.9); EOSINOPHILS % (AUTO) 2.9 % (0-6); HEMATOCRIT 34.5 % (42.0-52.0); LYMPHOCYTES # (AUTO) 1.1 X10'3 (1.1-4.8); LYMPHOCYTES % (AUTO) 7.4 % (21-51); MEAN CORPUSCULAR HGB CONC 31.8 % (33.0-36.5); MEAN CORPUSCULAR VOLUME 78.8 FL (78-98); MEAN PLATELET VOLUME 7.9 FL (7.4-10.4); MONOCYTES # (AUTO) 0.8 X10'3 (0-0.9); MONOCYTES % (AUTO) 5.4 % (2-12); NEUTROPHILS # (AUTO) 12.2 X10'3 (1.8-7.7); NEUTROPHILS % (AUTO) 84.3 % (42-75); PLATELET COUNT 706 X10'3 (140-440); RED BLOOD COUNT 4.38 X10'6 (4.70-6.10); WHITE BLOOD COUNT 14.5 X10'3 (4.5-11.0)
[2018-10-03 04:16] LABS: ALANINE AMINOTRANSFERASE 144 U/L (12-78); ALBUMIN 2.6 G/DL (3.4-5.0); ALBUMIN/GLOBULIN RATIO 0.6 (1.1-1.5); ALKALINE PHOSPHATASE 92 IU/L (46-116); ANION GAP 9 (8-16); ASPARTATE AMINO TRANSFERASE 51 U/L (10-37); BILIRUBIN,TOTAL 0.8 MG/DL (0.1-1.0); BLOOD UREA NITROGEN 79 MG/DL (7-18); BUN/CREATININE RATIO 51.3 (5.4-32.0); CALCIUM 9.4 MG/DL (8.5-10.1); CHLORIDE 104 MMOL/L (99-107); CREATININE 1.54 MG/DL (0.60-1.10); GLUCOSE 196 MG/DL (70-104); MAGNESIUM 2.4 MG/DL (1.5-2.4); PHOSPHORUS 3.6 MG/DL (2.3-4.5); POTASSIUM 3.7 MMOL/L (3.5-5.1); SODIUM 145 MMOL/L (135-145); TOTAL CARBON DIOXIDE 31.7 MMOL/L (24-32); TOTAL PROTEIN 7.2 G/DL (6.4-8.2); eGFR 46 ML/MIN
[2018-10-03] MEDS: ondansetron/PF 4mg/2ml inj IV PRN ×2 (05:01→13:05)
[2018-10-03 07:08] VITALS: BP 155/86
[2018-10-03] MEDS: famotidine/PF 10 mg/ml inj IV SCH (08:13)
[2018-10-03] MEDS: citalopram 20mg tablet PO SCH (08:13)
[2018-10-03] MEDS: spironolactone 25 MG tablet PO SCH ×2 (08:13→13:00)
[2018-10-03] MEDS: clopidogrel 75mg tablet PO SCH (08:13)
[2018-10-03] MEDS: rivaroxaban 20mg tablet OGT SCH (08:13)
[2018-10-03] MEDS: docusate sodium 100mg/10ml UD cup PO SCH (08:13)
[2018-10-03] MEDS: furosemide 10 MG/1 ML 10ml inj IV SCH (08:13)
[2018-10-03] MEDS: lactobacillus rhamnosus 10,000 MMU CELLS/CAPSULE PO SCH (08:13)
[2018-10-03] MEDS: multivitamin oral liquid (Certavite) 5ml cup PO SCH (08:13)
[2018-10-03] MEDS: aspirin 325mg tablet PO SCH (08:13)
[2018-10-03] MEDS: ziprasidone IM 20mg inj **IM only IM SCH (08:14)
[2018-10-03] MEDS ORDERED: morphine 10mg/0.5ml (conc. morphine) oral syringe PO PRN (09:55)
[2018-10-03 11:00] VITALS: BP 118/74
[2018-10-03 15:00] VITALS: BP 172/93
[2018-10-03] MEDS ORDERED: docusate sod 100mg capsule PO SCH (20:00)
== END 2018-10-03 17:59 | DRG 870 ==
LOC: ER 09:16 → ED HOLD 11:48 → ICU 2S 12:58 → PCU 3S 10-01 13:10
PROVIDERS: ADMIT Internal Medicine Critical Care Medicine; ATTEND Internal Medicine Critical Care Medicine
PROC: 0BH17EZ Insertion of Endotracheal Airway into Trachea, Via Natural or Artificial Opening (ICD-10-PCS; principal; 2018-09-06)
PROC: 5A1955Z Respiratory Ventilation, Greater than 96 Consecutive Hours (ICD-10-PCS; 2018-09-06)
PROC: 02HV33Z Insertion of Infusion Device into Superior Vena Cava, Percutaneous Approach (ICD-10-PCS; 2018-09-06)
PROC: 0W9B3ZZ Drainage of Left Pleural Cavity, Percutaneous Approach (ICD-10-PCS; 2018-09-13)
PROC: 5A09457 Assistance with Respiratory Ventilation, 24-96 Consecutive Hours, Continuous Positive Airway Pressure (ICD-10-PCS; 2018-09-18)
PROC: 5A09357 Assistance with Respiratory Ventilation, Less than 24 Consecutive Hours, Continuous Positive Airway Pressure (ICD-10-PCS; 2018-09-19)
PROC: 0BH17EZ Insertion of Endotracheal Airway into Trachea, Via Natural or Artificial Opening (ICD-10-PCS; 2018-09-19)
PROC: 5A1955Z Respiratory Ventilation, Greater than 96 Consecutive Hours (ICD-10-PCS; 2018-09-19)
PROC: 04HY32Z Insertion of Monitoring Device into Lower Artery, Percutaneous Approach (ICD-10-PCS; 2018-09-19)
PROC: 4A133B1 Monitoring of Arterial Pressure, Peripheral, Percutaneous Approach (ICD-10-PCS; 2018-09-19)
PROC: 4A133J1 Monitoring of Arterial Pulse, Peripheral, Percutaneous Approach (ICD-10-PCS; 2018-09-19)
PROC: 0T2BX0Z Change Drainage Device in Bladder, External Approach (ICD-10-PCS; 2018-09-19)
DX: A41.9 Sepsis, unspecified organism (principal); T83.511A Infection and inflammatory reaction due to indwelling urethral catheter, initial encounter; J15.212 Pneumonia due to Methicillin resistant Staphylococcus aureus; J96.21 Acute and chronic respiratory failure with hypoxia; N17.9 Acute kidney failure, unspecified; K92.2 Gastrointestinal hemorrhage, unspecified; M86.8X7 Other osteomyelitis, ankle and foot; J44.0 Chronic obstructive pulmonary disease with (acute) lower respiratory infection; I13.0 Hypertensive heart and chronic kidney disease with heart failure and stage 1 through stage 4 chronic kidney disease, or unspecified chronic kidney disease; N39.0 Urinary tract infection, site not specified; E11.51 Type 2 diabetes mellitus with diabetic peripheral angiopathy without gangrene; E78.00 Pure hypercholesterolemia, unspecified; E87.5 Hyperkalemia; I25.10 Atherosclerotic heart disease of native coronary artery without angina pectoris; I50.9 Heart failure, unspecified; F32.9 Major depressive disorder, single episode, unspecified; E11.42 Type 2 diabetes mellitus with diabetic polyneuropathy; E11.22 Type 2 diabetes mellitus with diabetic chronic kidney disease; E11.69 Type 2 diabetes mellitus with other specified complication; R62.7 Adult failure to thrive; Y95 Nosocomial condition; G93.89 Other specified disorders of brain; E87.6 Hypokalemia; Z16.12 Extended spectrum beta lactamase (ESBL) resistance; Y84.6 Urinary catheterization as the cause of abnormal reaction of the patient, or of later complication, without mention of misadventure at the time of the procedure; N18.2 Chronic kidney disease, stage 2 (mild); Z51.5 Encounter for palliative care; Z66 Do not resuscitate; Z88.6 Allergy status to analgesic agent; I25.2 Old myocardial infarction; Z22.322 Carrier or suspected carrier of Methicillin resistant Staphylococcus aureus; Z89.511 Acquired absence of right leg below knee; Z89.512 Acquired absence of left leg below knee; Z90.5 Acquired absence of kidney; Z95.5 Presence of coronary angioplasty implant and graft; Z79.82 Long term (current) use of aspirin; Z79.02 Long term (current) use of antithrombotics/antiplatelets; Z79.4 Long term (current) use of insulin; Z86.73 Personal history of transient ischemic attack (TIA), and cerebral infarction without residual deficits; Z87.820 Personal history of traumatic brain injury; Z80.0 Family history of malignant neoplasm of digestive organs; Z83.3 Family history of diabetes mellitus; Y92.89 Other specified places as the place of occurrence of the external cause
CPT/HCPCS: 32555; 36415; 36556; 36600; 70450; 70551; 71045; 71250; 74018; 74176; 76700; 76775; 80048; 80053; 80069; 80202; 80305; 80320; 81001; 82140; 82271; 82570; 82803; 82948; 83605; 83735; 83880; 84100; 84132; 84134; 84145; 84156; 84300; 84484; 85018; 85025; 85610; 85730; 87040; 87070; 87077; 87088; 87186; 87207; 92616; 93005; 93306; 94002; 94003; 94640; 94660; 94760; 96374; 96375; 97110; 97161; 97530; 99291; A4310; A7015; G0378; J0330; J0360; J0610; J0692; J0780; J1170; J1630; J1720; J1815; J1940; J1956; J2020; J2060; J2185; J2250; J2405; J2543; J2765; J3370; J3480; J3486; J3490; J7030; J7060; J7512; P9047